=== PATIENT | male | born 1945 | race Caucasian/White ===

== ENCOUNTER 2016-10-05 08:02 | Outpatient (CLI) | payer OTHER ==
--- NOTE | 2016-10-05 08:44 | US ---
EXAM: ULTRASOUND AORTA HISTORY: Abdominal aortic aneurysm, follow-up FINDINGS: Ultrasound aorta. Real time johnston-scale, color Doppler imaging and spectral analysis perf ormed. The AP and transverse measurements respectively, in centimeters are as follows: Proximal: 1.5 x 2.0 Mid: 1.9 x 1.8 Distal: 1.7 x 1.7 Right iliac: 0.9 x 0.8 Left iliac: 1.0 x 0.9 IMPRESSION: No sonographic evidence of aneurysmal caliber of the aorta.
== END 2016-10-05 08:03 | disposition home or self-care (01) ==
LOC: RAD 08:02
PROVIDERS: ATTEND Emergency Medicine
DX: I71.4 Abdominal aortic aneurysm, without rupture (principal)
CPT/HCPCS: 76775

== ENCOUNTER 2017-08-25 09:12 | Inpatient (IN) ==
[2017-08-25] MEDS ORDERED: DUONEB NEB STA (09:23)
[2017-08-25] MEDS ORDERED: SOLU-MEDROL 125 MG IVP STA (09:23)
--- NOTE | 2017-08-25 09:27 | ED.PDOC ---
General ED Provider: Dr. SRIDEVI CRAWFORD Chief Complaint: Respiratory Complaint Stated Complaint: Patient has been sick for two weeks one week ago he was placed on steroids and antiboitics which he completed yeterday but is not better. Has a history of COPD smoke 2ppd x 65 years. Comes in today with increased shortness of breath and cough productive of white sputum. Time Seen by Physician: 09:10 Information Source: Patient Exam Limitations: No limitations Primary Care Provider: LV ROSALES Nursing and Triage Documentation Reviewed and Agree: Yes Reviewed sepsis parameters & appropriate labs ordered?: Yes System Inflammatory Response Syndrome: Resp >20/Minute Sepsis Protocol: For patient's 13 years and over: Temp is 96.8 and below OR 101 and greater Pulse >90 BPM Resp >20/minute Acutely Altered Mental Status Are patient's symptoms suggestive of a new infection, such as: -Pneumonia -Skin, Soft Tissue -Endocarditis -UTI -Bone, Joint Infection -Implantable Device -Acute Abdominal Infection -Wound Infection -Meningitis -Blood Stream Catheter Infection -Unknown System Inflammatory Response Syndrome: Not Applicable Respiratory Complaint Exam - Respiratory Complaint/Exam Onset/Duration: 7 days Symptoms Are: Still present Character: Reports: Productive cough Aggravating: Reports: URI, Passive smoke exposure Review of Systems - Review Of Systems Constitutional: Reports: No symptoms Eyes: Reports: No symptoms Ears, Nose, Mouth, Throat: Reports: No symptoms Respiratory: Reports: Cough, Short of air, Wheezing Cardiac: Reports: No symptoms GI: Reports: No symptoms : Reports: No symptoms Musculoskeletal: Reports: No symptoms Skin: Reports: No symptoms Neurological: Reports: Anxiety Endocrine: Reports: No symptoms Hematologic/Lymphatic: Reports: No symptoms All Other Systems: Reviewed and Negative Past Medical History - Past Medical History Previously Healthy: Yes Endocrine: Reports: None Cardiovascular: Reports: Hypertension Respiratory: Reports: COPD Hematological: Reports: None Gastrointestinal: Reports: None Genitourinary: Reports: None Neuro/Psych: Reports: None Musculoskeletal: Reports: None Cancer: Reports: None - Surgical History General Surgical History: Reports: None - Family History Family History: Reports: None - Social History Smoking Status: Heavy tobacco smoker Physical Exam - Physical Exam Appearance: Ill-appearing, Thin Ill-appearing: Severe Eyes: MARIELOS, EOMI, Conjunctiva clear Neck: Supple Respiratory: Rhonchi, Wheezes Cardiovascular: RRR, Pulses normal, No rub, No murmur GI/: Soft, Nontender, No masses, Bowel sounds normal, No Organomegaly Musculoskeletal: Normal strength, ROM intact, No edema, No calf tenderness Skin: Warm, Dry, Normal color Neurological: Sensation intact, Motor intact, Reflexes intact, Cranial nerves intact, Alert, Oriented Psychiatric: Anxious Critical Care Note - Critical Care Note Total Time (mins): 35 Course - Course Hematology/Chemistry: 08/25/17 09:25 08/25/17 09:25 Orders, Labs, Meds: Lab Review 08/25/17 08/25/17 08/25/17 09:25 09:25 09:25 WBC 15.44 H RBC 4.68 L Hgb 14.3 Hct 42.1 MCV 90.0 MCH 30.6 MCHC 34.0 RDW Coeff of Terry 13.4 Plt Count 326 Immature Gran % (Auto) 0.4 Neut % (Auto) 73.9 Lymph % (Auto) 16.3 [place] % (Auto) 9.2 Eos % (Auto) 0.1 Baso % (Auto) 0.1 Immature Gran # (Auto) 0.1 Neut # 11.4 H Lymph # 2.5 [place] # 1.4 Eos # 0.0 Baso # 0.0 Puncture Site O2 Saturation ABG pH ABG pCO2 ABG pO2 ABG HCO3 ABG Total CO2 ABG Base Excess Mook Test FiO2 % Sodium 133 L Potassium 3.6 Chloride 97 L Carbon Dioxide 28 Anion Gap 11.6 BUN 13 Creatinine 0.73 Estimated GFR (MDRD) 105.00 BUN/Creatinine Ratio 17.80 Glucose 99 Lactic Acid Calcium 9.1 Total Bilirubin 0.5 AST 18 ALT 10 L Alkaline Phosphatase 82 Total Protein 7.3 Albumin 3.2 L Globulin 4.1 Albumin/Globulin Ratio 0.78 Procalcitonin < 0.05 Influenza A (Rapid) Influenza B (Rapid) 08/25/17 08/25/17 08/25/17 09:25 09:53 10:10 WBC RBC Hgb Hct MCV MCH MCHC RDW Coeff of Terry Plt Count Immature Gran % (Auto) Neut % (Auto) Lymph % (Auto) [place] % (Auto) Eos % (Auto) Baso % (Auto) Immature Gran # (Auto) Neut # Lymph # [place] # Eos # Baso # Puncture Site Rr O2 Saturation 92.0 L ABG pH 7.454 H ABG pCO2 39.6 ABG pO2 60.0 L ABG HCO3 27.8 H ABG Total CO2 29 H ABG Base Excess 4 H Mook Test + FiO2 % 21.0 Sodium Potassium Chloride Carbon Dioxide Anion Gap BUN Creatinine Estimated GFR (MDRD) BUN/Creatinine Ratio Glucose Lactic Acid 17.4 Calcium Total Bilirubin AST ALT Alkaline Phosphatase Total Protein Albumin Globulin Albumin/Globulin Ratio Procalcitonin Influenza A (Rapid) Positive by naat H Influenza B (Rapid) Negative by naat Orders Category Date Time Status ABG DRAW REQUEST Stat CARDIO 08/25/17 09:53 Completed NEBULIZER TREATMENT Stat CARDIO 08/25/17 09:24 Completed IV ACCESS ONCE CARE 08/25/17 09:23 Active ED APPLY O2 .ONCE EMERGENCY 08/25/17 09:23 Active ED DIRECTOR FINANCIAL SYSTEMS APPLIED .ONCE EMERGENCY 08/25/17 09:23 Active ED IV/MEDIPORT/POWERPORT .ONCE EMERGENCY 08/25/17 09:24 Active ED VITAL SIGNS Q1HR EMERGENCY 08/25/17 09:23 Active ABG Stat LAB 08/25/17 09:53 Completed BLOOD CULTURE (ED ONLY) Stat LAB 08/25/17 09:25 Received CBC W/ AUTO DIFF Stat LAB 08/25/17 09:25 Completed COMPREHENSIVE METABOLIC PANEL Stat LAB 08/25/17 09:25 Completed LACTIC ACID Stat LAB 08/25/17 09:25 Completed MOLECULAR FLU A/B Stat LAB 08/25/17 10:10 Completed PROCALCITONIN Stat LAB 08/25/17 09:25 Completed RAPID STREP SCREEN [MOLECULAR GROUP A STREP] Stat LAB 08/25/17 10:10 Completed 0.9 % Sodium Chloride [Saline Flush] MEDS 08/25/17 09:24 Active 1 syr IVF PRN PRN Ceftriaxone Sodium [Rocephin] 1 gm MEDS 08/25/17 10:46 Discontinued 0.9 % Sodium Chloride [Sodium Chloride] 50 ml IV ONCE Ipratropium/Albuterol Neb [Duoneb] MEDS 08/25/17 09:23 Discontinued 1 vial NEB ONCE STA Methylprednisolone Sod Succ/Pf [Solu-Medrol 125 mg] MEDS 08/25/17 09:23 Discontinued 125 mg IVP ONCE STA CHEST, 1V AP ONLY Stat RADS 08/25/17 09:23 Completed Medications Generic Name Dose Route Start Last Admin Trade Name Freq PRN Reason Stop Dose Admin Sodium Chloride 1 syr 08/25/17 09:24 08/25/17 10:04 Saline Flush IVF 1 syr PRN PRN Administration To flush IV Discontinued Medications Generic Name Dose Route Start Last Admin Trade Name Dhaval PRN Reason Stop Dose Admin Albuterol/Ipratropium 1 vial 08/25/17 09:23 08/25/17 09:40 Duoneb NEB 08/25/17 09:24 1 vial ONCE STA Administration Ceftriaxone Sodium 1 gm/ 50 mls @ 75 mls/hr 08/25/17 10:46 08/25/17 11:27 Sodium Chloride IV 08/25/17 11:25 75 mls/hr ONCE STA Administration Methylprednisolone Sodium Succinate 125 mg 08/25/17 09:23 08/25/17 09:58 Solu-Medrol 125 Mg IVP 08/25/17 09:24 125 mg ONCE STA Administration Vital Signs: Temp Pulse Resp BP Pulse Ox 08/25/17 09:13 99.7 F H 84 36 H 144/85 H 92 L Departure - Departure Time of Disposition: 11:40 Disposition: HOME SELF-CARE Discharge Problem: Influenza A, COPD with acute exacerbation Left lower lobe pneumonia Qualifiers: Pneumonia type: due to unspecified organism Qualified Code(s): J18.1 - Lobar pneumonia, unspecified organism Condition: Stable Pt referred to PMD for follow-up: No Allergies/Adverse Reactions: Allergies No Known Allergies Allergy (Unverified 08/25/17 09:26) Home Medications: Ambulatory Orders Albuterol Sulfate [Proair Hfa] 2 puff IH Q4H PRN 08/25/17 Fluticasone/Salmeterol [Advair 250-50 Diskus] 1 each IH BID 08/25/17 Lisinopril 10 mg PO DAILY PRN 08/25/17 Disposition Discussed With: Patient, Family
--- NOTE | 2017-08-25 09:56 | DI ---
EXAMINATION: AP portable chest radiograph. HISTORY: Cough FINDINGS: There are new opacities in the right lung base since 08/09/2015. Minimal chronic opacity in the lingula is noted. There are decreased bronchovascular markings in the upper lungs. There is stable calcifications in the right upper lobe. The aorta is atherosclerotic. The heart size is nor mal. The bones are intact. No pneumothorax or pleural effusions are detected. IMPRESSION: Atelectasis or pneumonia in the right lung base. Probable chronic pulmonary parenchymal scarring in the left lung base. Suggestion of emphysema. ASCVD.
[2017-08-25] MEDS ORDERED: ROCEPHIN 1 GM in SODIUM CHLORIDE 50 ML IV STA (10:46)
[2017-08-25] MEDS ORDERED: ROCEPHIN ONE (11:16)
[2017-08-25] MEDS ORDERED: DUONEB NEB ONE (11:45)
[2017-08-25] MEDS ORDERED: DUONEB NEB PRN (11:54)
[2017-08-25] MEDS ORDERED: TYLENOL PO PRN (11:54)
[2017-08-25] MEDS ORDERED: ZOFRAN 4 MG/2 ML IVP PRN (11:54)
[2017-08-25] MEDS ORDERED: SODIUM CHLORIDE 1,000 ML IV SCH (12:00)
[2017-08-25 12:38] VITALS: BMI 22.1
[2017-08-25] MEDS ORDERED: VANCOMYCIN ONE ×2 (13:03→20:26)
[2017-08-25] MEDS: NICODERM 21 MG TD SCH (13:13)
[2017-08-25] MEDS: VANCOMYCIN 500 MG in SODIUM CHLORIDE 100 ML IV SCH ×2 (13:13→20:34)
[2017-08-25] MEDS: TAMIFLU PO SCH ×2 (13:23→20:34)
[2017-08-25] MEDS: SOLU-MEDROL 125 MG IVP SCH ×2 (13:24→20:34)
[2017-08-25] MEDS: DUONEB NEB SCH ×2 (14:45→20:25)
[2017-08-26] MEDS: SOLU-MEDROL 125 MG IVP SCH ×3 (04:08→20:40)
[2017-08-26] MEDS: DUONEB NEB SCH ×4 (05:25→23:32)
[2017-08-26] MEDS: TAMIFLU PO SCH ×2 (09:06→20:51)
[2017-08-26] MEDS: ROCEPHIN 1 GM in SODIUM CHLORIDE 50 ML IV SCH (09:06)
[2017-08-26] MEDS: ZESTRIL PO SCH (09:06)
[2017-08-26] MEDS: NICODERM 21 MG TD SCH (09:07)
[2017-08-26] MEDS: LOVENOX SUBCUT SCH (09:07)
--- NOTE | 2017-08-26 09:53 | PCM.PROG ---
Attending Provider: ATTENDING PROVIDER: Dr. LV ROSALES This patient is seen with Joann Naik, Nurse Practitioner. DATE OF SERVICE: 08/26/17 SUBJECTIVE: This 71 year old WHITE/ M was hospitalized 08/25/17. The patient is sitting on the side of the bed, alert. He states he is feeling somewhat better. REVIEW OF SYSTEMS: CONSTITUTIONAL: Fatigue. No night sweats. No fever or chills. HEENT: Eyes: No visual changes. No eye pain. No eye discharge. ENT: No runny nose. No epistaxis. No sinus pain. No odynophagia. No congestion. RESPIRATORY: Cough. No hemoptysis. Shortness of breath. CARDIOVASCULAR: No angina symptoms. No CHF symptoms. No atypical chest pain for CAD. No palpitations. No orthopnea.. GASTROINTESTINAL: No abdominal pain. No nausea or vomiting. No diarrhea or constipation. No hematemesis. No hematochezia. GENITOURINARY: No urgency. No frequency. No dysuria. No hematuria. No obstructive symptoms. No discharge. No pain. No significant abnormal bleeding. MUSCULOSKELETAL: No musculoskeletal pain; no joint swelling. NEUROLOGICAL: Awake, alert, oriented to time, place and person. No headache. No neck pain. No syncope. No seizures. No dizziness. PSYCHIATRIC: Not anxious. No depression. No suicidal thoughts. No homicidal thoughts. SKIN: No rash. No lesions. No wounds. ENDOCRINE: No unexplained weight loss. No weight gain. HEMATOLOGIC/LYMPHATIC: No anemia. No purpura. No petechiae. No prolonged or excessive bleeding. No palpable lymph nodes. PHYSICAL EXAMINATION: GENERAL: The patient is awake, alert and oriented, sitting in bed in no distress. VITAL SIGNS: Temperature 97.7 F, Pulse 66, Respiratory Rate 20, BP 125/74, Pulse Ox 96% HEENT: Head normocephalic, atraumatic. Eyes: Extraocular muscles are intact. Pupils are equal, round and reactive to light and accommodation. Ears: No lesions. Nose appeared normal. Throat: No exudate or erythema. NECK: Supple. No JVD, no carotid bruit. No lymphadenopathy or thyromegaly. LUNGS: Diminished breath sounds bilaterally. Clear to auscultation. Percussion note normal. Chest symmetrical. HEART: S1, S2, no S3. No murmurs. No cyanosis or clubbing. No ascites. Pulses: Dorsalis pedis and posterior tibial pulses +1 to +2 both sides. ABDOMEN: Soft. Non-tender. Bowel sounds active. No CVA tenderness. No mass felt. EXTREMITIES: No edema. Full range of motion of all extremities, equal. NEUROLOGIC: No focal deficit. Cranial nerves II through XII are grossly intact. No headache, no double vision or headache. SKIN: Not dry. Intact. Turgor-normal. LYMPHATIC: No palpable lymph nodes/no lymphedema. MUSCULOSKELETAL: Normal joints with no swelling. Muscle tone is normal. LAB REVIEW: 08/26/17 05:35 08/26/17 05:35 08/26/17 05:35: Sodium 134 L, Potassium 4.2, Chloride 99, Carbon Dioxide 29, Anion Gap 10.2, BUN 13, Creatinine 0.68, Estimated GFR (MDRD) 114.00, BUN/ Creatinine Ratio 19.11, Glucose 147 H, Calcium 9.0 08/26/17 05:35: WBC 13.10 H, RBC 4.29 L, Hgb 13.1 L, Hct 38.4 L, MCV 89.5, MCH 30.5, MCHC 34.1, RDW Coeff of Terry 13.2, Plt Count 303, Immature Gran % (Auto) 0.7, Neut % (Auto) 84.1, Lymph % (Auto) 11.9, [place] % (Auto) 3.2, Eos % (Auto) 0.0, Baso % (Auto) 0.1, Immature Gran # (Auto) 0.1, Neut # 11.0 H, Lymph # 1.6, [place] # 0.4, Eos # 0.0, Baso # 0.0 ASSESSMENT: 1. RIGHT LOWER LOBE PNEUMONIA 2. INFLUENZA A 3. COPD 4. SMOKER PLAN: 1. Continue IV steroids and IV antibiotics Plan and coordination of the patient's care discussed in the presence of Surface Grinder Tender and nurse. CONDITION: Stable SCRIBED BY: CARISA STERLING Flight Readiness Technician scribed while in presence of service performed by Dr. Rosales/Joann Naik APRN on 08/26/17 ([id number])
[2017-08-26] MEDS: VANCOMYCIN 1 GM in SODIUM CHLORIDE 250 ML IV SCH ×2 (10:57→20:39)
[2017-08-26] MEDS: ADVAIR 250-50 DISKUS IH SCH ×3 (10:57→20:38)
--- NOTE | 2017-08-26 13:29 | PN ---
DATE OF SERVICE: 08/25/17 - ADMITTING NOTE SUBJECTIVE: 71-year-old white male was brought to the emergency room with complaint of cough , congestion, fever, chills and poor appetite. The patient has severe chronic lung disease with history of heavy smoking. The patient has been treated with Zithromax as an outpatient for his bronchitis and same type of symptoms with practically no improvement. REVIEW OF SYSTEMS: CONSTITUTIONAL: Fatigue, weakness. No night sweats. No fever or chills. HEENT: Eyes: No visual changes. No eye pain. No eye discharge. ENT: No runny nose. No epistaxis. No sinus pain. No sore throat. No odynophagia. No congestion. RESPIRATORY: Cough and congestion. Yellowish sputum production. No hemoptysis with shortness of breath. CARDIOVASCULAR: Shortness of breath, pleuritic type of pain; sharp, shooting, right-sided with cough. No symptoms of CHF or coronary insufficiency. No angina symptoms. No CHF symptoms. No atypical chest pain for CAD. No palpitations. No orthopnea. GASTROINTESTINAL: Appetite is not good. No abdominal pain. No nausea or vomiting. No diarrhea or constipation. No hematemesis. No hematochezia. GENITOURINARY: No urgency. No frequency. No dysuria. No hematuria. No obstructive symptoms. No discharge. No pain. No significant abnormal bleeding. MUSCULOSKELETAL: Generalized aches and pains. NEUROLOGICAL: No headache. No neck pain. No syncope. No seizures. No dizziness. PSYCHIATRIC: Not anxious. No depression. No suicidal thoughts. No homicidal thoughts. SKIN: No rash. No lesions. No wounds. ENDOCRINE: No unexplained weight loss. No weight gain. HEMATOLOGIC/LYMPHATIC: No anemia. No purpura. No petechiae. No prolonged or excessive bleeding. No palpable lymph nodes. PHYSICAL EXAMINATION: GENERAL: The patient is oriented to time, place and person. VITAL SIGNS: Temperature 98.2, pulse 80, respiratory rate 15, BP 138/72. HEENT: Head normocephalic, atraumatic. Eyes: Extraocular muscles are intact. Pupils are equal, round and reactive to light and accommodation. Ears: No lesions. Nose appeared normal. Throat: No exudate or erythema. NECK: Supple. No JVD, no carotid bruit. No lymphadenopathy or thyromegaly. LUNGS: Decreased breath sounds with mild wheeze. Percussion note normal. Chest symmetrical. HEART: S1, S2, no S3. No murmurs. No cyanosis or clubbing. No ascites. Pulses: Dorsalis pedis and posterior tibial pulses +1 bilaterally. ABDOMEN: Soft. Nontender. Bowel sounds active. No CVA tenderness. No mass felt. EXTREMITIES: No pedal edema. Full range of motion of all extremities, equal. NEUROLOGIC: No focal deficit. Cranial nerves II through XII are grossly intact. No headache, no double vision or headache. SKIN: Not dry. Intact. Turgor - not good. LYMPHATIC: No palpable lymph nodes/no lymphedema. MUSCULOSKELETAL: Normal joints with no swelling. Muscle tone is normal. RADIOLOGY/LABS: Chest x-ray bilateral lobe infiltrate. ABGs borderline hypoxemia but oxygen saturation more than 90% on room air. WBC count elevated with shift to the left. ASSESSMENT: 1. ACUTE PNEUMONITIS WITH BRONCHITIS 2. INFLUENZA POSITIVE 3. DEHYDRATION 4. SEVERE CHRONIC LUNG DISEASE WITH HISTORY OF SMOKING 5. HYPERTENSION PLAN: 1. IV fluids. 2. IV antibiotics, Rocephin. 3. Vancomycin will be added because of Influenza with pneumonia 500 q.12 for two days. The patient was already on Zithromax, should stay around for five more days. 4. Steroids IV q.8hr, Methylprednisone. 5. Nebs treatment with Duonebs q.i.d. 6. Daily CBC and CMP. 7. Watch for fluid overload. 8. Telemetry. 9. Oximetry. 10. Counseling for smoking done. CONDITION: Stable TIME SPENT: More than 30 minutes. Plan and coordination of the patient's care discussed in the presence of nurse. JOSE JUAN
[2017-08-27] MEDS: DUONEB NEB SCH ×2 (04:10→10:12)
[2017-08-27] MEDS: SOLU-MEDROL 125 MG IVP SCH (05:24)
[2017-08-27 05:26] VITALS: BP 129/74; TEMP 97.3
--- NOTE | 2017-08-27 09:24 | CM.DICTOOL ---
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, CT THORAX 08/08/18 STRESS/SESTAMIBI 09/14/15 LEFT VENTRICULAR MYOCARDIAL PERFUSION IS WNL LVEF 52% LEFT VENTRICULAR WALL MOTION WNL DOBUTAMINE STRESS ECHO, 09/14/15 NO EVIDENCE OF ISCHEMIA BY ST-T WAVE NO CHEST PAIN OR CHEST DISCOMFORT NORMAL LEFT VENTRICULAR CONTRACTILITY RESTING AND DURING DOBUTAMINE INFUSION HEAVY SMOKER LAST VITALS Temp Pulse Resp BP Pulse Ox 97.3 F L 76 20 129/74 93 L 08/27/17 05:26 08/27/17 05:26 08/27/17 05:26 08/27/17 05:26 08/27/17 05:26 ACTIVE HOME MEDICATIONS Albuterol Sulfate (Proair Hfa) 2 puffs IH Q4H PRN PRN Reason: Wheezing Lisinopril (Zestril) 10 mg PO DAILY [facility] Last Admin: 08/26/17 09:06 Dose: 10 mg Fluticasone/Salmeterol (Advair 250-50 Diskus) 1 puff IH BID [facility] Last Admin: 08/26/17 20:38 Dose: 1 puff ALLERGIES No Known Allergies Allergy (Unverified 08/25/17 09:26) NEW PRESCRIPTIONS: TAMIFLU 75 MG, TAKE ONE TABLET BY MOUTH TWICE DAILY FOR 2 MORE DAYS AFTER TODAY' S DOSES KEFLEX 500 MG, TAKE ONE CAPSULE BY MOUTH THREE TIMES DAILY FOR 7 DAYS PREDNSIONE 10 MG, TAKE TWO TABLETS (20 MG) BY MOUTH TWICE DAILY X 2 DAYS, THEN ONE TABLET (10 MG) BY MOUTH TWICE DAILY FOR 5 DAYS, THEN STOP. TAKE THIS MEDICATION WITH FOOD OXYGEN AT 2L/NASAL CANNULA FOR CONTINUOUS USE [address]# [phone] SMOKING: SMOKING CESSATION HAS BEEN DISCUSSED WITH THE PATIENT. HE IS AWARE OF THE RISKS OF CONTINUATION AND THE BENEFITS WITH COMPLETE CESSATION. HE HAS NOT VERBALIZED HIS INTENT TO STOP SMOKING AND WILL BENEFIT FROM CONTINUED ENCOURAGEMENT TO DO SO. DISEASE SPECIFIC EDUCATION: INFLUENZA AND PREVENTION OF SPREAD PNEUMONIA COPD HOME MEDICATIONS NEW MEDICATIONS EFFECTS OF REAL ESTATE JOB TITLES STEROID USE FOLLOW UP LAB REVIEW: 08/27/17 04:30 08/27/17 04:30 08/27/17 04:30: Sodium 135 L, Potassium 3.9, Chloride 99, Carbon Dioxide 29, Anion Gap 10.9, BUN 17, Creatinine 0.67, Estimated GFR (MDRD) 116.00, BUN/ Creatinine Ratio 25.37, Glucose 135 H, Calcium 9.0 08/27/17 04:30: WBC 20.14 H D, RBC 4.06 L, Hgb 12.2 L, Hct 36.4 L, MCV 89.7, MCH 30.0, MCHC 33.5, RDW Coeff of Terry 13.2, Plt Count 337, Immature Gran % (Auto ) 0.6, Neut % (Auto) 85.8, Lymph % (Auto) 9.1 L, [place] % (Auto) 4.4, Eos % (Auto ) 0.0, Baso % (Auto) 0.1, Immature Gran # (Auto) 0.1, Neut # 17.3 H, Lymph # 1.8 , [place] # 0.9, Eos # 0.0, Baso # 0.0 PLAN: DISCHARGE HOME TODAY RETURN TO SEE DR. ROSALES ON 09/06/17 AT 10:15 A.M. RESUME YOUR HOME MEDICATIONS PER LIST PROVIDED BY THE NURSING STAFF NEW PRESCRIPTIONS TAMIFLU 75 MG, TAKE ONE TABLET BY MOUTH TWICE DAILY FOR 2 MORE DAYS AFTER TODAY' S DOSES KEFLEX 500 MG, TAKE ONE CAPSULE BY MOUTH THREE TIMES DAILY FOR 7 DAYS PREDNSIONE 10 MG, TAKE TWO TABLETS (20 MG) BY MOUTH TWICE DAILY X 2 DAYS, THEN ONE TABLET (10 MG) BY MOUTH TWICE DAILY FOR 5 DAYS, THEN STOP. TAKE THIS MEDICATION WITH FOOD OXYGEN AT 2L/NASAL CANNULA FOR CONTINUAL USE ACTIVITY GET PLENTY OF REST AT HOME FOR AT LEAST ONE WEEK. GRADUALLY INCREASE YOUR ACTIVITY LEVEL ACCORDING TO YOUR TOLERATION DIET HEALTHY HEART SUMMARY THE PATIENT IS ALERT AND ORIENTED X3. HE CURRENTLY RESIDES AT HOME WITH A GRANDDAUGHTER AND HAS BEEN INDEPENDENT WITH ALL ADL'S. HE DESIRES TO RETURN HOME AT DISCHARGE. HE HAS NOT REQUIRED ANY DME, HOME HEALTH OR HOMEMAKING SERVICES. HOWEVER, AFTER THIS SPELL OF ILLNESS, HE WILL BE REQUIRED TO USE OXYGEN AT 2L/NC CONTINUOUSLY DUE TO HIS COPD. HE IS AGREEABLE TO COMPLY WITH OXYGEN USE AT HOME. WE WILL REQUEST A CONSERVER AND PORTABLE OXYGEN WELL. SKIN TURGOR IS INTACT AND WITHOUT DECUBITUS ULCERS. NUTRITIONAL AND HYDRATION STATUS IS VERY GOOD. MR. REBOLLEDO IS AFEBRILE AND PAIN FREE. HE IS AWARE AND AGREEABLE FOR TODAY'S DISCHARGE PLANS. CURRENT CODE STATUS FULL CODE HERMELINDA PÉREZ APRN LV ROSALES M.D.
--- NOTE | 2017-08-27 09:37 | PCM.PROG ---
Attending Provider: ATTENDING PROVIDER: Dr. LV ROSALES This patient is seen with Joann Naik, Nurse Practitioner. DATE OF SERVICE: 08/27/17 SUBJECTIVE: This 71 year old WHITE/ M was hospitalized 08/25/17. The patient is sitting on the side of the bed, alert. He is ready to go home. He has been up and about walking around, is afebrile and is eating well. REVIEW OF SYSTEMS: CONSTITUTIONAL: No night sweats. No fatigue, malaise, lethargy. No fever or chills. HEENT: Eyes: No visual changes. No eye pain. No eye discharge. ENT: No runny nose. No epistaxis. No sinus pain. No odynophagia. No congestion. RESPIRATORY: Cough. No congestion. No hemoptysis. No shortness of breath. CARDIOVASCULAR: No angina symptoms. No CHF symptoms. No atypical chest pain for CAD. No palpitations. No orthopnea.. GASTROINTESTINAL: No abdominal pain. No nausea or vomiting. No diarrhea or constipation. No hematemesis. No hematochezia. GENITOURINARY: No urgency. No frequency. No dysuria. No hematuria. No obstructive symptoms. No discharge. No pain. No significant abnormal bleeding. MUSCULOSKELETAL: No musculoskeletal pain; no joint swelling. NEUROLOGICAL: Awake, alert, oriented to time, place and person. No headache. No neck pain. No syncope. No seizures. No dizziness. PSYCHIATRIC: Not anxious. No depression. No suicidal thoughts. No homicidal thoughts. SKIN: No rash. No lesions. No wounds. ENDOCRINE: No unexplained weight loss. No weight gain. HEMATOLOGIC/LYMPHATIC: No anemia. No purpura. No petechiae. No prolonged or excessive bleeding. No palpable lymph nodes. PHYSICAL EXAMINATION: GENERAL: The patient is awake, alert and oriented, sitting in bed in no distress. VITAL SIGNS: Temperature 97.3 F, Pulse 76, Respiratory Rate 20, BP 129/74, Pulse Ox 93% HEENT: Head normocephalic, atraumatic. Eyes: Extraocular muscles are intact. Pupils are equal, round and reactive to light and accommodation. Ears: No lesions. Nose appeared normal. Throat: No exudate or erythema. NECK: Supple. No JVD, no carotid bruit. No lymphadenopathy or thyromegaly. LUNGS: Diminished breath sounds bilaterally. Clear to auscultation. Percussion note normal. Chest symmetrical. HEART: S1, S2, no S3. No murmurs. No cyanosis or clubbing. No ascites. Pulses: Dorsalis pedis and posterior tibial pulses +1 to +2 both sides. ABDOMEN: Soft. Non-tender. Bowel sounds active. No CVA tenderness. No mass felt. EXTREMITIES: No edema. Full range of motion of all extremities, equal. NEUROLOGIC: No focal deficit. Cranial nerves II through XII are grossly intact. No headache, no double vision or headache. SKIN: Not dry. Intact. Turgor-normal. LYMPHATIC: No palpable lymph nodes/no lymphedema. MUSCULOSKELETAL: Normal joints with no swelling. Muscle tone is normal. LAB REVIEW: 08/27/17 04:30 08/27/17 04:30 08/27/17 04:30: Sodium 135 L, Potassium 3.9, Chloride 99, Carbon Dioxide 29, Anion Gap 10.9, BUN 17, Creatinine 0.67, Estimated GFR (MDRD) 116.00, BUN/ Creatinine Ratio 25.37, Glucose 135 H, Calcium 9.0 08/27/17 04:30: WBC 20.14 H D, RBC 4.06 L, Hgb 12.2 L, Hct 36.4 L, MCV 89.7, MCH 30.0, MCHC 33.5, RDW Coeff of Terry 13.2, Plt Count 337, Immature Gran % (Auto ) 0.6, Neut % (Auto) 85.8, Lymph % (Auto) 9.1 L, [place] % (Auto) 4.4, Eos % (Auto ) 0.0, Baso % (Auto) 0.1, Immature Gran # (Auto) 0.1, Neut # 17.3 H, Lymph # 1.8 , [place] # 0.9, Eos # 0.0, Baso # 0.0 ASSESSMENT: 1. RIGHT LOWER LOBE PNEUMONIA 2. INFLUENZA A 3. COPD 4. SMOKER PLAN: 1. Keflex 500 mg t.i.d. times 7 days 2. Prednisone 20 mg b.i.d. for two days then 10 mg b.i.d. for five days 3. Finish five day course of Shelly-Flu 4. D/C home 5. Followup with us next week Plan and coordination of the patient's care discussed in the presence of Offset Label Rewinder and nurse. CONDITION: Stable SCRIBED BY: CARISA STERLING Racecar Driver scribed while in presence of service performed by Dr. Rosales/Joann Naik APRN on 08/27/17 ([id number])
[2017-08-27] MEDS: LOVENOX SUBCUT SCH (09:48)
[2017-08-27] MEDS: TAMIFLU PO SCH (09:48)
[2017-08-27] MEDS: ZESTRIL PO SCH (09:48)
[2017-08-27] MEDS: NICODERM 21 MG TD SCH (09:48)
[2017-08-27] MEDS: ROCEPHIN 1 GM in SODIUM CHLORIDE 50 ML IV SCH (09:48)
[2017-08-27] MEDS: ADVAIR 250-50 DISKUS IH SCH (09:49)
--- NOTE | 2017-08-29 13:32 | PN ---
DATE OF SERVICE: 08/26/17 SUBJECTIVE: This 71 year old male was hospitalized with acute bronchitis, pneumonitis and influenza. The patient's condition has improved. His hydration status has improved. He is feeling better. Appetite has improved. The patient was seen and examined with the nurse practitioner. JOSE JUAN
--- NOTE | 2017-08-29 13:36 | PN ---
DATE OF SERVICE: 08/27/17 SUBJECTIVE: The patient was hospitalized with acute bronchitis, pneumonitis with severe chronic lung disease. Counselling for smoking done. PHYSICAL EXAMINATION: LUNGS: Decreased breath sounds. HEART: S1, S2. SKIN: His turgor is a lot better. The patient will be discharged home with antibiotics and steroids. The patient was seen and examined with the nurse practitioner. CONDITION: Stable. MTDD
--- NOTE | 2017-08-29 14:12 | PN ---
BILLING 08/25/17 LEVEL 5 08/26/17 INTERMEDIATE 08/27/17 D JOSE JUAN
--- NOTE | 2017-09-13 11:52 | HP ---
DATE OF SERVICE: 08/26/17 HISTORY OF PRESENT ILLNESS: This 71-year-old white male who presented to the emergency room stating he had been sick for two weeks. He was coughing with low grade fever at home, nauseated , very weak. He has a history of COPD and smokes two packs per day. PAST MEDICAL HISTORY: COPD HYPERTENSION OSTEOARTHRITIS PAST SURGICAL HISTORY: NONE REVIEW OF SYSTEMS: CONSTITUTIONAL: Weakness. No night sweats. No malaise, lethargy. No fever or chills. HEENT: Eyes: No visual changes. No eye pain. No eye discharge. ENT: No runny nose. No epistaxis. No sinus pain. No sore throat. No odynophagia. No ear pain. No congestion. RESPIRATORY: Cough, shortness of breath and wheezing. No hemoptysis. No shortness of breath. CARDIOVASCULAR: No angina symptoms. No CHF symptoms. No atypical chest pain for CAD. No palpitations. No orthopnea. GASTROINTESTINAL: No abdominal pain. No nausea or vomiting. No diarrhea or constipation. No hematemesis. No hematochezia. GENITOURINARY: No urgency. No frequency. No dysuria. No hematuria. No obstructive symptoms. No discharge. No pain. No significant abnormal bleeding. MUSCULOSKELETAL: No musculoskeletal pain. No joint swelling. No arthritis. NEUROLOGICAL: No headache. No neck pain. No syncope. No seizures. No dizziness. PSYCHIATRIC: Not anxious. No depression. No suicidal thoughts. No homicidal thoughts. SKIN: No rash. No lesions. No wounds. ENDOCRINE: No unexplained weight loss. No weight gain. HEMATOLOGIC/LYMPHATIC: No anemia. No purpura. No petechiae. No prolonged or excessive bleeding. No palpable lymph nodes. PERSONAL/FAMILY/SOCIAL HISTORY: No pertinent family history. The patient is a two pack per day smoker. He is accompanied by his granddaughters. He lives at home by himself with his cat. He is . MEDICATIONS: (Home) Fluticasone/Salmeterol one each IH b.i.d. Lisinopril 10 mg p.o. daily p.r.n. Albuterol (ProAir Hfa) two puff IH q.4h p.r.n. ALLERGIES: NKDA PHYSICAL EXAMINATION: VITAL SIGNS: Temperature 98.2, pulse 68, BP 123/65, respiratory rate 24, 94% on 2L HEENT: Head normocephalic, atraumatic. Eyes: Extraocular muscles are intact. Pupils are equal, round and reactive to light and accommodation. Ears: No lesions. Nose appeared normal. Throat: No exudate or erythema. NECK: Supple. No JVD, no carotid bruit. No lymphadenopathy or thyromegaly. LUNGS: Diminished breath sounds bilaterally with mild expiratory wheezes otherwise is unremarkable. Percussion note normal. Chest symmetrical. HEART: S1, S2, no S3. No murmurs. No cyanosis or clubbing. No ascites. Pulses: Dorsalis pedis and posterior tibial pulses +1 to +2 both sides. ABDOMEN: Soft. Nontender. Bowel sounds active. No CVA tenderness. No mass felt. EXTREMITIES: No edema. Full range of motion of all extremities, equal. NEUROLOGIC: No focal deficit. Cranial nerves II through XII are grossly intact. No headache, no double vision or headache. SKIN: Not dry. Intact. Turgor - normal. LYMPHATIC: No palpable lymph nodes/no lymphedema. MUSCULOSKELETAL: Normal joints with no swelling. Muscle tone is normal. LAB VALUES: White count 15.44, hemoglobin 14.3, hematocrit 42.1, platelets 326. Sodium 133, potassium 3.6, BUN 13, creatinine 0.73, calcium 9.1, AST 18, ALT 10, alkaline phosphatase 82, total protein 7.3, albumin 3.2. Lactic acid 17.4. Influenza A positive. Influenza B negative. ABGs on room air: 02 sat 92, pH 7.454, pc02 39.6 , p02 60, bicarb 27.8, total c02 29, base excess 4. Chest x-ray revealed atelectasis or pneumonia in the right lung base, COPD, atherosclerotic heart disease. ASSESSMENT: 1. INFLUENZA A 2. RIGHT LOWER LOBE PNEUMONIA 3. SEVERE COPD 4. HEAVY SMOKER 5. SHORTNESS OF BREATH PLAN: 1. Admit to the floor 2. Solu-Medrol 125 mg IV q.8hr 3. Shelly-flu 75 mg p.o. b.i.d. 4. Rocephin 1 gm IV daily 5. CBC, CMP daily 6. Routine telemetry orders 7. Xopenex neb treatments q.6hr scheduled 8. IV fluids at 75 cc/hr 9. D5 1/2 NS 10. Oxygen as needed 11. Contact precautions 12. Smoking cessation 13. Education provided 14. Will follow with him closely TIME SPENT: More than 70 minutes. JOSE JUAN
--- NOTE | 2017-09-13 13:23 | DS ---
DATE OF SERVICE: 08/27/17 FINAL DIAGNOSIS: 1. RIGHT LOWER LOBE PNEUMONIA 2. INFLUENZA A 3. COPD 4. HYPERTENSION 5. CHOLELITHIASIS, CT THORAX, 08/08/18 6. TINY SLIDING HIATAL HERNIA, CT THORAX 08/08/18 7. STRESS/SESTAMIBI 09/14/15 8. LEFT VENTRICULAR MYOCARDIAL PERFURSION IS WITHIN NORMAL LIMITS 9. LVEF 52% 10. LEFT VENTRICULAR WALL MOTION WITHIN NORMAL LIMITS 11. DOBUTAMINE STRESS ECHO, 09/14/15 12. NO EVIDENCE OF ISCHEMIA BY ST-T WAVE 13. NO CHEST PAIN OR CHEST DISCOMFORT 14. NORMAL LEFT VENTRICULAR CONTRACTILITY RESTING AND DURING DOBUTAMINE INFUSION 15. HEAVY SMOKER LAST V/S: Temperature 97.3, pulse 76, respiratory rate 20, BP 129/74, pulse ox 93 DISCHARGE INSTRUCTIONS: Followup appointment: Return to see Dr. Aguila on 09/06/17 at 10:15 a.m. MEDICATIONS AT DISCHARGE: Albuterol (ProAir Hfa) two puffs IH q.4h p.r.n. Zestril 10 mg p.o. daily TIMOTHY Advair 250-50 Diskus one puff IH b.i.d. TIMOTHY NEW PRESCRIPTIONS: Tamiflu 75 mg take one tablet by mouth twice daily for two more days after today 's doses Keflex 500 mg take one capsule by mouth three times daily for 7 days Prednisone 10 mg take two tablets (20 mg) by mouth twice daily times two days then one tablet by mouth twice daily for 5 days then stop. Take this medication with food. Oxygen at 2L/nasal cannula for continuous use [phone] DIET INSTRUCTIONS: Healthy Heart ACTIVITY: Get plenty of rest at home for at least one week. Gradually increase your activity level according to your toleration. SMOKING: Smoking cessation has been discussed with the patient. He is aware of the risks of continuation and the benefits with complete cessation. He has not verbalized his intent to stop smoking and will benefit from continued encouragement to do so. 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 He is a patient of ours however he is noncompliant with lifestyle and follow up. He does not come to the office very often. He has severe COPD and smokes two packs per day. He tested positive for Influenza A. On admission, chest x-ray revealed right lower lobe atelectasis versus pneumonia. He was admitted, placed on IV fluids D5 1/2 NS at 75 cc/hr. After the first 24 hours this is decreased to 50 cc/hr. He was placed on 1 gm Rocephin IV daily, started on Xopenex neb treatments q.6hr scheduled, placed on Tamiflu 75 mg p.o. b.i.d. and Vancomycin 500 mg IV q.12hr. He had low grade fever upon admission. This resolved within 24 hours after starting Tamiflu and antibiotics. He was not in any respiratory distress although he does have diminshed breath sounds likely due to chronic lung disease. He was started on Solu-Medrol 125 mg IV q.8hr. He has responded remarkably well, given his history of chronic lung disease. He has not required any oxygen. Today's pulse ox is 93% on room air. He has been up and about walking around for the past 24 hours. He has been eating 100% of his meals. He states he feels well. He is cracking jokes, states he is ready to go home. Again he has been afebrile for the past 24 hours. We will discharge him home on Tamiflu 75 mg b.i.d. for the next 3 days just to finish out his five day course along with tapering dose of Prednisone 20 mg b.i.d. for 2 days and then 10 mg b.i.d. for [address] him on Keflex 500 mg t.i.d. for 7 days. He is instructed to followup with us in the office next week. He is to return sooner if any fever returns. Again, he is in stable condition. His labs look good. Hemoglobin 12.2, hematocrit 36.4, platelets 337. His white count is elevated at 20,000 and this is likely due to IV steroids. This initially dropped after admission. Sodium 135, potassium 3.9, BUN 17, creatinine 0.67, temperature 97.3, heart rate 76, respirations 20, BP 129/74, pulse ox 93%. Again , his initial chest x-ray showed very minimal pneumonia if any at all, likely atelectasis due to chronic lung disease. His coughing is improved. He is feeling well. He is discharged home in stable condition. TIME SPENT: More than 60 minutes. JOSE JUAN
== END 2017-08-27 11:20 | disposition home or self-care (01) | DRG 194 ==
LOC: ED 09:12 → MEDSURG B 11:13
PROVIDERS: ADMIT Internal Medicine; ATTEND Internal Medicine
DX: J18.1 Lobar pneumonia, unspecified organism (principal); J44.1 Chronic obstructive pulmonary disease with (acute) exacerbation; J10.1 Influenza due to other identified influenza virus with other respiratory manifestations; I10 Essential (primary) hypertension; K80.20 Calculus of gallbladder without cholecystitis without obstruction; K44.9 Diaphragmatic hernia without obstruction or gangrene; F17.210 Nicotine dependence, cigarettes, uncomplicated; Z91.19 Patient's noncompliance with other medical treatment and regimen; Z79.899 Other long term (current) drug therapy
CPT/HCPCS: 36415; 80048; 80053; 82803; 83605; 84145; 85025; 87040; 87502; 87651; 93005; 93010; 94640; 94761; 96365; 96375; 99284

== ENCOUNTER 2018-12-10 08:35 | Outpatient (CLI) ==
--- NOTE | 2018-12-10 09:37 | US ---
EXAM: ULTRASOUND AORTA HISTORY: Aneurysm FINDINGS: Ultrasound aorta. Real time johnston-scale ultrasound, color Doppler imaging and spectral alfred lysis performed. The AP and transverse measurements respectively, in centimeters are as follows: Proximal: 2.2 x 2.4 Mid: 1.4 x 1.5 Distal: 1.4 x 2.0 Right iliac: 0.7 x 1.0 Left iliac: 0.8 x 1.3 Distal aortic PSV (m/s): No data IMPRESSION: No sonographic evidence of aneurysmal caliber of the abdominal aorta.
--- NOTE | 2018-12-10 10:09 | CT ---
EXAM: CT chest with and without contrast HISTORY: Shortness of breath, chronic obstructive pulmonary disease COMPARISON: None TECHNIQUE: CT chest performed with and without intravenous contrast. Coronal and sagittal reformatt ed images obtained. FINDINGS: The thoracic inlet unremarkable. Heart top normal in size. Coronary calcifications. No pericardial effusion. 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 Moderat e atherosclerosis. Small hiatal hernia. Stable sub centimeter hypodensities in the liver, too small to characterize. There are gallstones. Small hypodensity left kidney, too small to characterize. No acute abnormalities of the bones. Degenerative change in the spine. No lymphadenopathy in the ch est. Debris in the trachea and right main bronchus. No airspace consolidation. No pleural effusion . No pneumothorax. Severe emphysema with scarring. Right apical scarring with calcification. Mild scarring in the right middle lobe and lingula. 5 mm nodule right lung image 50 is unchanged. Sever al stable pulmonary nodules measure up to 6 mm, for example image 14, 49, 50, 53. IMPRESSION: 1. Severe emphysema with scarring. 2. Several pulmonary nodules measure up to 6 mm, unchanged from 08/08/2016, most suggestive of a salud ign etiology. 3. 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 4. Atherosclerosis. Coronary calcifications 5. Cholelithiasis 6. Small hiatal hernia. 7. Debris in the trachea and right main bronchus.
== END 2018-12-10 08:36 | disposition home or self-care (01) ==
LOC: RAD 08:35
PROVIDERS: ATTEND Internal Medicine
DX: R06.02 Shortness of breath (principal); R53.83 Other fatigue; J44.9 Chronic obstructive pulmonary disease, unspecified; I10 Essential (primary) hypertension; Z86.79 Personal history of other diseases of the circulatory system
CPT/HCPCS: 76775

== ENCOUNTER 2018-12-23 06:46 | Outpatient (CLI) | payer OTHER ==
--- NOTE | 2018-12-24 09:43 | ECHO2D ---
Date of Exam: 12/23/18 Ordering Physician: DR. LV ROSALES Room #: OP Reason for Echo: SOB, COPD, HTN, FATIGUE M-Mode Normal Adult Results LV Dimensions Normal Adult Results AoV Opening excursions >1.6 >1.6 LVEDD-base- 3.5-5.8 4.6 Ao root dimensions 2.0-3.7 3.6 LVESD-base- 3.1-4.6 L. Atrium dimensions 1.9-3.8 3.7 Post. Wall thickness 0.8-1.1 1.2 IV septum (thickness) 0.7-1.2 1.2 Post. Wall excursion 0.72-1.3 NORMAL Septal motion NORMAL Systolic motion R. Ventricular cavity 1.5-2.0 3.5 LVEF 60% 50% Paradoxical septal wall motion NORMAL 2-D : 2-D M Mode Echocardiogram was performed using apical four chamber and left parasternal long and short axis views. Mitral, tricuspid and aortic valves appear to be normal. Contractility of the left ventricle seems to be normal, so is the cavity size. Left atrial cavity size and aortic root appear to be normal. There is no pericardial effusion. There is no thrombus noted in the left ventricular or left aortic cavity. No mitral valve prolapse noted. ENLARGED RIGHT VENTRICLE CAVITY M-MODE: MV: NORMAL AV: NORMAL TV: NORMAL PV: CHAMBER SIZE: ENLARGED RIGHT VENTRICLE CAVITY WALL MOTION: NORMAL PERICARDIUM: NORMAL INTERPRETATION: 1. BORDERLINE LEFT VENTRICULAR HYPERTROPHY 2. ENLARGED RIGHT VENTRICLE CAVITY 3. NORMAL LEFT VENTRICLE CONTRACTILITY 4. NORMAL VALVES MTDD
== END 2018-12-23 06:47 | disposition home or self-care (01) ==
LOC: CAR 06:46
PROVIDERS: ATTEND Internal Medicine
DX: R06.02 Shortness of breath (principal); R53.83 Other fatigue; J44.9 Chronic obstructive pulmonary disease, unspecified; I10 Essential (primary) hypertension

== ENCOUNTER 2022-10-14 12:05 | Inpatient (IN) ==
[2022-10-14] MEDS ORDERED: SOLU-MEDROL 125 MG IVP ONE (12:32)
[2022-10-14] MEDS ORDERED: DUONEB NEB ONE (12:32)
--- NOTE | 2022-10-14 12:38 | ED.PDOC ---
General ED Provider: Dr. KANDY SANTILLAN MD Chief Complaint: Shortness of Air Stated Complaint: mild to mod short of breath for 2 days, on home oxygen, presents w/ O2sat 78%, no chest pain, no fever, no emesis, hx copd and htn Time Seen by Provider: 10/14/22 12:18 Mode of Arrival: Wheelchair Information Source: Patient and Family Primary Care Provider: LV ROSALES MD Nursing and Triage Documentation Reviewed and Agree: Yes Does patient meet sepsis criteria?: No System Inflammatory Response Syndrome: Not Applicable Sepsis Protocol: For patient's 13 years and over: Temp is 96.8 and below OR 101 and greater Pulse >90 BPM Resp >20/minute Acutely Altered Mental Status Are patient's symptoms suggestive of a new infection, such as: -Pneumonia -Skin, Soft Tissue -Endocarditis -UTI -Bone, Joint Infection -Implantable Device -Acute Abdominal Infection -Wound Infection -Meningitis -Blood Stream Catheter Infection -Unknown Review of Systems Review Of Systems Constitutional: Denies Fever Eyes: Denies Vision change Ears, Nose, Mouth, Throat: Denies Throat pain Respiratory: Reports Cough, Short of air and Wheezing Cardiac: Denies Chest pain GI: Denies Abdominal pain or Vomiting : Denies Frequency Musculoskeletal: Denies Back pain Skin: Denies Rash Neurological: Denies Cognitive dysfunction All Other Systems: Other Physical Exam Physical Exam Appearance: Reports No pain distress Ill-appearing: None Pain Distress: None Eyes: Reports MARIELOS, EOMI and Conjunctiva clear ENT: Reports Oropharynx normal Neck: Supple Respiratory: Reports Airway patent and Wheezes Cardiovascular: Reports RRR GI/: Reports Soft and Nontender Musculoskeletal: Reports ROM intact Skin: Reports Warm and Dry Neurological: Reports Alert and Oriented Psychiatric: Reports Affect appropriate Interpretation Radiology Interpretation Radiology Interpretation By: Radiologist Exam Interpreted: CXR Xray Comments: brittanyladian osorio EKG Interpretation Time of EKG #1: 14:08 Rate: Normal Rhythm: Sinus Interpretation: no stemi Critical Care Note Critical Care Note Total Critical Care Time (mins): 0 Course Course Hematology/Chemistry: 10/14/22 12:48 10/14/22 12:48 Orders, Labs, Meds: Lab Review 10/14/22 10/14/22 10/14/22 12:30 12:48 12:48 WBC 17.30 H RBC 3.93 L Hgb 11.6 L Hct 36.8 L MCV 93.6 MCH 29.5 MCHC 31.5 L RDW Coeff of Terry 14.2 Plt Count 355 Immature Gran % (Auto) 0.5 Neut % (Auto) 79.1 H Lymph % (Auto) 8.0 L [place] % (Auto) 9.4 Eos % (Auto) 2.8 Baso % (Auto) 0.2 Neut # (Auto) 13.7 H Lymph # (Auto) 1.4 [place] # (Auto) 1.6 Eos # (Auto) 0.5 Baso # (Auto) 0.0 Immature Gran # (Auto) 0.1 Puncture Site Base Excess O2 Saturation ABG pH ABG pCO2 ABG pO2 ABG HCO3 ABG Total CO2 Mook Test Hemoglobin Oxyhemoglobin Carboxyhemoglobin Total Hemoglobin O2 Delivery Device Oxygen Liter Flow Sodium 131.6 L Potassium 3.87 Chloride 95.7 L Carbon Dioxide 31.2 H Anion Gap 8.57 BUN 14.1 Creatinine 0.89 Estimated GFR (MDRD) 83.00 BUN/Creatinine Ratio 15.84 Glucose 108.4 H Lactic Acid Calcium 9.12 Total Bilirubin 0.82 AST 20.1 ALT 10.7 Alkaline Phosphatase 110.1 Troponin I < 0.012 Total Protein 7.50 Albumin 4.24 Globulin 3.26 Albumin/Globulin Ratio 1.30 SARS CoV-2 RNA Rapid KENJI Negative 10/14/22 10/14/22 12:48 12:52 WBC RBC Hgb Hct MCV MCH MCHC RDW Coeff of Terry Plt Count Immature Gran % (Auto) Neut % (Auto) Lymph % (Auto) [place] % (Auto) Eos % (Auto) Baso % (Auto) Neut # (Auto) Lymph # (Auto) [place] # (Auto) Eos # (Auto) Baso # (Auto) Immature Gran # (Auto) Puncture Site Rrad Base Excess 7.7 H O2 Saturation 95.7 ABG pH 7.44 ABG pCO2 47.0 H ABG pO2 77.0 L ABG HCO3 31.9 H ABG Total CO2 33.3 H Mook Test Pos Hemoglobin 0.8 Oxyhemoglobin 95.5 Carboxyhemoglobin 2.2 H Total Hemoglobin 11.4 L O2 Delivery Device Cannula Oxygen Liter Flow 2.00 Sodium Potassium Chloride Carbon Dioxide Anion Gap BUN Creatinine Estimated GFR (MDRD) BUN/Creatinine Ratio Glucose Lactic Acid 1.03 Calcium Total Bilirubin AST ALT Alkaline Phosphatase Troponin I Total Protein Albumin Globulin Albumin/Globulin Ratio SARS CoV-2 RNA Rapid KENJI Orders Category Date Time Status ABG DRAW REQUEST Stat CARDIO 10/14/22 12:32 Ordered EKG-(ED ONLY) Stat CARDIO 10/14/22 12:32 Ordered OXYGEN [ED APPLY O2] .ONCE EMERGENCY 10/14/22 12:32 Active ABG COOX Stat LAB 10/14/22 12:52 Completed BLOOD CULTURE Stat LAB 10/14/22 13:46 Received CBC W/ AUTO DIFF Stat LAB 10/14/22 12:48 Completed CMP [COMPREHENSIVE METABOLIC PANEL] Stat LAB 10/14/22 12:48 Completed LACTIC ACID Stat LAB 10/14/22 12:48 Completed SARS COV-2 RNA RAPID KENJI Stat LAB 10/14/22 12:30 Completed TROPONIN I Stat LAB 10/14/22 12:48 Completed URINALYSIS C & S IF INDICATED Stat LAB 10/14/22 12:32 Uncollected Ipratropium/Albuterol Neb [Duoneb] MEDS 10/14/22 12:32 Discontinued 3 ml NEB ONCE ONE Levofloxacin/D5w [Levaquin 750 mg/150 ml D5w] MEDS 10/14/22 13:32 Active 750 mg in 150 ml IV ONCE Methylprednisolone Sod Succ/Pf [Solu-Medrol 125 mg] MEDS 10/14/22 12:32 Discontinued 125 mg IVP ONCE ONE CHEST, 1V AP ONLY Stat RADS 10/14/22 12:32 Taken Medications Generic Name Dose Route Start Last Admin Trade Name Freq PRN Reason Stop Dose Admin Levofloxacin/Dextrose 750 mg in 150 mls @ 100 mls/hr 10/14/22 13:32 10/14/22 13:49 Levaquin 750 Mg/150 Ml D5w IV 10/14/22 15:01 100 mls/hr ONCE ONE Administration Discontinued Medications Generic Name Dose Route Start Last Admin Trade Name Freq PRN Reason Stop Dose Admin Albuterol/Ipratropium 3 ml 10/14/22 12:32 10/14/22 13:08 Ipratropium/Albuterol Vial.Neb NEB 10/14/22 12:33 3 ml ONCE ONE Administration Methylprednisolone Sodium Succinate 125 mg 10/14/22 12:32 10/14/22 12:49 Methylprednisolone Sod Succ/Pf 125 Mg/2 Ml Vial IVP 10/14/22 12:33 125 mg ONCE ONE Administration Vital Signs: Temp Pulse Resp BP Pulse Ox 10/14/22 12:17 98.7 F 90 22 H 157/74 H 97 Discharge Plan Discharge Patient Disposition: ADMITTED INPATIENT Discharge Problem: Pneumonia Prescriptions: No Action furosemide 40 mg tablet 40 mg PO DAILY atorvastatin 20 mg Tablet 20 mg PO DAILY albuterol sulfate 1.25 mg/3 mL Solution For Nebulization 1.25 mg inhalation PRN PRN (Reason: Shortness Of Breath) potassium chloride 10 mEq tablet extended release 10 meq PO DAILY spironolactone 25 mg tablet 25 mg PO DAILY tamsulosin 0.4 mg capsule 0.4 mg PO DAILY omeprazole 20 mg Capsule,Delayed Release(Dr/Ec) 20 mg PO DAILY budesonide [Pulmicort] 0.5 mg/2 mL Suspension For Nebulization 0.5 mg inhalation DAILY montelukast 10 mg tablet 10 mg PO DAILY bupropion HCl 300 mg tablet extended release 24 hr 300 mg PO DAILY Spiriva Respimat 1.25 mcg/actuation Mist 1 inh INHALATION DAILY lisinopril 10 MG tablet 10 mg PO DAILY PRN (Reason: hypertension) fluticasone propion-salmeterol [Advair Diskus] 1 EACH blister with device 1 ea inhalation BID albuterol sulfate [ProAir HFA] 200 PUFF/8.5 GM HFA aerosol inhaler 2 puff inhalation Q4H PRN (Reason: Shortness of air) Did you review [place] FARE COLLECTOR for ALL controlled substances?: Not Applicable ED Provider: KANDY SANTILLAN Condition: Stable Physician Progress Note: []Dr Rosales asked that pt be admitted to hospitalist service
[2022-10-14 12:53] LABS: BASOPHILS % (AUTO) 0.2 % (0.0-3.0); EOSINOPHILS # (AUTO) 0.5 K/ul (0.0-0.7); EOSINOPHILS % (AUTO) 2.8 % (0.0-7.0); HEMATOCRIT 36.8 % (42.0-52.0); HEMOGLOBIN 11.6 g/dl (14.0-18.0); IMMATURE GRANULOCYTE # (AUTO) 0.1 (0.0-1.0); IMMATURE GRANULOCYTE % (AUTO) 0.5 % (0.0-5.0); LYMPHOCYTES # (AUTO) 1.4 K/uL (0.60-3.4); MEAN CORPUSCULAR HEMOGLOBIN 29.5 pg (27.0-31.0); MEAN CORPUSCULAR HGB CONC 31.5 (31.8-35.4); MEAN CORPUSCULAR VOLUME 93.6 fl (80.0-94.0); MONOCYTES # (AUTO) 1.6 K/uL (0.4-2.0); MONOCYTES % (AUTO) 9.4 (0-10); NEUTROPHILS # (AUTO) 13.7 K/ul (2.0-6.9); NEUTROPHILS % (AUTO) 79.1 % (42.2-75.2); PLATELET COUNT 355 10^3/uL (140-440); RDW COEFFICIENT OF VARIATION 14.2 % (11.6-14.8); RED BLOOD COUNT 3.93 10^6/ul (4.70-6.10)
[2022-10-14 13:04] LABS: ALANINE AMINOTRANSFERASE 10.7 U/L (0-50); ALBUMIN 4.24 g/dL (3.5-5.0); ALKALINE PHOSPHATASE 110.1 U/L (56-119); ASPARTATE AMINO TRANSFERASE 20.1 U/L (17-59); BILIRUBIN,TOTAL 0.82 mg/dL (0.2-1.3); BLOOD UREA NITROGEN 14.1 mg/dL (9-20); CALCIUM 9.12 mg/dL (8.4-10.2); CARBON DIOXIDE 31.2 mmol/L (22-30.0); CHLORIDE 95.7 mmol/L (98-107); CREATININE 0.89 mg/dL (0.60-1.10); GLUCOSE 108.4 mg/dL (74-106); POTASSIUM 3.87 mmol/L (3.5-5.1); SODIUM 131.6 mmol/L (134.5-145)
[2022-10-14 13:07] LABS: ABG O2 HGB 95.5 % (95-100); ABG PH 7.44 (7.35-7.45); BEecf 7.7 (-2.0-3.0); COHb 2.2 (0.5-1.5); HCO3 31.9 (21-28); MetHb 0.8 (0-1.5); TCO2 33.3 (19-24); sO2 95.7 % (94-98); tHb 11.4 g/dl (11.7-17.4)
[2022-10-14 13:16] LABS: TROPONIN I < 0.012 ng/ml (0.0000-0.120)
[2022-10-14] MEDS ORDERED: LEVAQUIN 750 MG/150 ML D5W 750 MG/150 ML BAG IV ONE (13:32)
[2022-10-14 13:33] LABS: SARS COV-2 RNA RAPID NAAT NEGATIVE (NEGATIVE)
--- NOTE | 2022-10-14 14:07 | DI ---
EXAM: SINGLE VIEW CHEST. HISTORY: Weakness. COMPARISON: 01/09/2022, 01/26/2020 FINDINGS: Lung volumes are adequate. Increased mixed interstitial and patchy opacities are present i n bilateral lung bases. Unchanged few nodular densities are redemonstrated in the right upper lung. There is abnormal hyperlucency and associated paucity of lung markings in the upper lungs bilaterall y. No pneumothorax or pleural effusion is identified. The cardiac silhouette and central pulmonary vasculature are normal in prominence. Bilateral glenohumeral osteoarthritis and left acromioclavicul ar joint osteoarthritis are noted. IMPRESSION: Emphysema with bibasilar pneumonia versus aspiration.
[2022-10-14] MEDS ORDERED: TYLENOL PO PRN (14:10)
[2022-10-14] MEDS ORDERED: SOLU-MEDROL 40 MG IVP PRN (14:13)
[2022-10-14] MEDS ORDERED: VENTOLIN HFA (PER PUFF-WITH SPACER) IH PRN (14:14)
[2022-10-14] MEDS ORDERED: ALBUTEROL 0.042% NEB NEB PRN (14:14)
[2022-10-14] MEDS ORDERED: ZESTRIL PO PRN (14:14)
[2022-10-14 15:04] VITALS: BMI 24.5
[2022-10-14 18:45] LABS: BILIRUBIN,URINE Negative (NEGATIVE); CLARITY,URINE Clear (CLEAR); COLOR,URINE Yellow (YELLOW); GLUCOSE, URINE (UA) Negative (NEGATIVE); KETONES,URINE 1+ (NEGATIVE); LEUKOCYTE ESTERASE ,URINE Negative (NEGATIVE); NITRITE,URINE Negative (NEGATIVE); PH,URINE 5.5 (5-9); PROTEIN,URINE Negative (NEGATIVE); URINE, BLOOD Trace-intact (NEGATIVE); UROBILINOGEN,URINE 0.2 (0.2)
[2022-10-14] MEDS: SOLU-MEDROL 40 MG IVP SCH ×2 (18:46→23:21)
[2022-10-14 18:52] LABS: SQUAMOUS EPITHELIAL CELL,UR 0-2 (0-5); URINE WBC, MICROSCOPIC 0-2 (0-2)
[2022-10-14] MEDS: SYMBICORT 160-4.5 MCG INHALER IH SCH (20:41)
[2022-10-15] MEDS: SODIUM CHLORIDE 1,000 ML IV SCH ×2 (03:05)
[2022-10-15] MEDS: DUONEB NEB SCH ×5 (05:10→20:50)
[2022-10-15 05:40] LABS: BASOPHILS % (AUTO) 0.2 % (0.0-3.0); HEMATOCRIT 32.8 % (42.0-52.0); HEMOGLOBIN 10.5 g/dl (14.0-18.0); IMMATURE GRANULOCYTE % (AUTO) 0.5 % (0.0-5.0); LYMPHOCYTES % (AUTO) 18.3 (10.0-50.0); MEAN CORPUSCULAR HEMOGLOBIN 29.6 pg (27.0-31.0); MEAN CORPUSCULAR VOLUME 92.4 fl (80.0-94.0); MONOCYTES # (AUTO) 0.3 K/uL (0.4-2.0); MONOCYTES % (AUTO) 6.1 (0-10); NEUTROPHILS # (AUTO) 4.2 K/ul (2.0-6.9); NEUTROPHILS % (AUTO) 74.9 % (42.2-75.2); PLATELET COUNT 332 10^3/uL (140-440); RED BLOOD COUNT 3.55 10^6/ul (4.70-6.10); WHITE BLOOD COUNT 5.57 K/ul (4.2-10.2)
[2022-10-15 05:51] LABS: ALANINE AMINOTRANSFERASE 9.6 U/L (0-50); ALBUMIN 3.56 g/dL (3.5-5.0); ASPARTATE AMINO TRANSFERASE 32.9 U/L (17-59); BILIRUBIN,TOTAL 0.46 mg/dL (0.2-1.3); BLOOD UREA NITROGEN 14.3 mg/dL (9-20); CALCIUM 8.72 mg/dL (8.4-10.2); CHLORIDE 100.2 mmol/L (98-107); CREATININE 0.73 mg/dL (0.60-1.10); GLUCOSE 137.4 mg/dL (74-106); POTASSIUM 4.14 mmol/L (3.5-5.1); SODIUM 134.1 mmol/L (134.5-145); TOTAL PROTEIN 6.71 g/dL (6.3-8.2)
[2022-10-15] MEDS: SOLU-MEDROL 40 MG IVP SCH (06:13)
[2022-10-15] MEDS ORDERED: SOLU-MEDROL 40 MG IVP SCH (09:00)
[2022-10-15] MEDS ORDERED: PRILOSEC PO SCH (09:00)
[2022-10-15] MEDS ORDERED: MICRO-K CAP PO SCH (09:00)
[2022-10-15] MEDS ORDERED: LASIX TAB PO SCH (09:00)
[2022-10-15] MEDS ORDERED: NON-FORMULARY MEDICATION (Tiotropium Bromide [Spiriva Respimat] 1.25 mcg/actuation Mist) IH SCH (09:00)
[2022-10-15] MEDS: SOLU-MEDROL 125 MG IVP SCH ×2 (09:13→21:04)
[2022-10-15] MEDS: LEVAQUIN 750 MG/150 ML D5W 750 MG/150 ML BAG IV SCH (09:28)
[2022-10-15] MEDS: SINGULAIR PO SCH (09:29)
[2022-10-15] MEDS: WELLBUTRIN XL PO SCH (09:29)
[2022-10-15] MEDS: FLOMAX PO SCH (09:29)
[2022-10-15] MEDS: ALDACTONE PO SCH (09:29)
[2022-10-15] MEDS: SYMBICORT 160-4.5 MCG INHALER IH SCH ×2 (09:30→21:05)
[2022-10-15] MEDS: LIPITOR PO SCH (09:30)
--- NOTE | 2022-10-15 09:35 | CT ---
EXAM: CT CHEST WITH AND WITHOUT CONTRAST HISTORY: Cough and shortness of breath COMPARISON: CT chest 01/26/2020, 12/10/2018 and priors TECHNIQUE: Serial axial images of the chest were obtained before and after IV contrast was administe red. These were obtained from the lung apices to the upper abdomen. FINDINGS: The thyroid is normal. Visualized vessels demonstrate mild to moderate calcific atheroscl erotic disease. There is no dissection, aneurysm or stenosis. The heart is normal in size without p ericardial effusion. There is no mediastinal, hilar or axillary pathologically enlarged lymph nodes. There is a small hiatal hernia. There is no pneumothorax or pleural effusion. Right upper lobe calcified granulomas are present. Th ere is moderate to severe emphysema. There is a 0.2 cm pulmonary nodule which is stable right middle lobe on image 43. There is a stable 0.5 cm pulmonary nodule right lower lobe on image 45. There is no new pulmonary nodule. Limited views of the soft tissues in the upper abdomen are unchanged. There is degenerative disease of the spine with compression fracture at T12 and superior endplate compression deformity/fracture a t T11, new when compared to 2027. IMPRESSION: 1. No acute cardiopulmonary process or consolidation with stable pulmonary nodules and emphysema. 2. Degenerative disease with age indeterminate compression fractures at T11 and T12 which are new wh en compared to 2019. If further evaluation is clinically indicated, MRI may be obtained. 3. Small hiatal hernia. 4. Sequela of old granulomatous disease. All CT scans are performed using dose optimization techniques as appropriate to the performed exam an d include at least one of the following: Automated exposure control, adjustment of the mA and/or kV according t o size, and the use of iterative reconstruction technique.
[2022-10-15] MEDS: SPIRIVA IH SCH (09:45)
--- NOTE | 2022-10-15 11:07 | PCM.PROG ---
Attending Provider: ATTENDING PROVIDER: Dr. SRIDEVI CRAWFORD This patient is seen with Joann Naik, Nurse Practitioner. DATE OF SERVICE: 10/15/22 SUBJECTIVE: This 76 year old /WHITE M was hospitalized 10/14/22. States he is feeling somewhat better this morning. Still short of breath. Blood pressure has been low 109/60. WBC has improved down to 5,000 today. REVIEW OF SYSTEMS: CONSTITUTIONAL: No night sweats. No fatigue, malaise, lethargy. No fever or chills. HEENT: Eyes: No visual changes. No eye pain. No eye discharge. ENT: No runny nose. No epistaxis. No sinus pain. No odynophagia. No congestion. RESPIRATORY: Cough, no congestion. No hemoptysis. Shortness of breath. Wheezing. CARDIOVASCULAR: No angina symptoms. No CHF symptoms. No atypical chest pain for CAD. No palpitations. No orthopnea.. GASTROINTESTINAL: No abdominal pain. No nausea or vomiting. No diarrhea or constipation. No hematemesis. No hematochezia. GENITOURINARY: No urgency. No frequency. No dysuria. No hematuria. No obstructive symptoms. No discharge. No pain. No significant abnormal bleeding. MUSCULOSKELETAL: No musculoskeletal pain; no joint swelling. NEUROLOGICAL: Awake, alert, oriented to time, place and person. No headache. No neck pain. No syncope. No seizures. No dizziness. PSYCHIATRIC: Not anxious. No depression. No suicidal thoughts. No homicidal thoughts. SKIN: No rash. No lesions. No wounds. ENDOCRINE: No unexplained weight loss. No weight gain. HEMATOLOGIC/LYMPHATIC: No anemia. No purpura. No petechiae. No prolonged or excessive bleeding. No palpable lymph nodes. PHYSICAL EXAMINATION: GENERAL: The patient is awake, alert and oriented, lying in bed in no distress. VITAL SIGNS: Temperature 97 F, Pulse 81, Respiratory Rate 18, BP 109/60, Pulse Ox 96% HEENT: Head normocephalic, atraumatic. Eyes: Extraocular muscles are intact. Pupils are equal, round and reactive to light and accommodation. Ears: No lesions. Nose appeared normal. Throat: No exudate or erythema. NECK: Supple. No JVD, no carotid bruit. No lymphadenopathy or thyromegaly. LUNGS: Severely diminished breath sounds. Clear to auscultation. Percussion note normal. Chest symmetrical. HEART: S1, S2, no S3. No murmurs. No cyanosis or clubbing. No ascites. Pu lses: Dorsalis pedis and posterior tibial pulses +1 to +2 both sides. ABDOMEN: Soft. Non-tender. Bowel sounds active. No CVA tenderness. No mass felt. EXTREMITIES: No edema. Full range of motion of all extremities, equal. NEUROLOGIC: No focal deficit. Cranial nerves II through XII are grossly intact. No headache. No double vision. SKIN: Not dry. Intact. Turgor-normal. LYMPHATIC: No palpable lymph nodes/no lymphedema. MUSCULOSKELETAL: Normal joints with no swelling. Muscle tone is normal. LAB REVIEW: 10/15/22 05:30 10/15/22 05:30 10/15/22 05:30: Sodium 134.1 L, Potassium 4.14, Chloride 100.2, Carbon Dioxide 30.0, Anion Gap 8.04, BUN 14.3, Creatinine 0.73, Estimated GFR (MDRD) 104.00, BUN/Creatinine Ratio 19.58, Glucose 137.4 H, Calcium 8.72, Total Bilirubin 0.46, AST 32.9, ALT 9.6, Alkaline Phosphatase 83.0 D, Total Protein 6.71, Albumin 3.56, Globulin 3.15, Albumin/Globulin Ratio 1.13 10/15/22 05:30: WBC 5.57 D, RBC 3.55 L, Hgb 10.5 L, Hct 32.8 L, MCV 92.4, MCH 29.6, MCHC 32.0, RDW Coeff of Terry 14.0, Plt Count 332, Immature Gran % (Auto) 0.5, Neut % (Auto) 74.9, Lymph % (Auto) 18.3, [place] % (Auto) 6.1, Eos % (Auto) 0.0, Baso % (Auto) 0.2, Neut # (Auto) 4.2, Lymph # (Auto) 1.0, [place] # (Auto) 0.3 L, Eos # (Auto) 0.0, Baso # (Auto) 0.0, Immature Gran # (Auto) 0.0 10/14/22 18:38: Urine Color Yellow, Urine Clarity Clear, Urine pH 5.5, Ur Specific [place] 1.020, Urine Protein Negative, Urine Glucose (UA) Negative, Urine Ketones 1+ H, Urine Blood Trace-intact H, Urine Nitrite Negative, Urine Bilirubin Negative, Urine Urobilinogen 0.2, Ur Leukocyte Esterase Negative, Urine Microscopic RBC 2-5, Urine Microscopic WBC 0-2, Ur Squamous Epith Cells 0- 2 10/14/22 12:52: Puncture Site Rrad, Base Excess 7.7 H, O2 Saturation 95.7, ABG pH 7.44, ABG pCO2 47.0 H, ABG pO2 77.0 L, ABG HCO3 31.9 H, ABG Total CO2 33.3 H, Mook Test Pos, Hemoglobin 0.8, Oxyhemoglobin 95.5, Carboxyhemoglobin 2.2 H, Total Hemoglobin 11.4 L, O2 Delivery Device Cannula, Oxygen Liter Flow 2.00 10/14/22 12:48: Lactic Acid 1.03 10/14/22 12:48: Sodium 131.6 L, Potassium 3.87, Chloride 95.7 L, Carbon Dioxide 31.2 H, Anion Gap 8.57, BUN 14.1, Creatinine 0.89, Estimated GFR (MDRD) 83.00, BUN/Creatinine Ratio 15.84, Glucose 108.4 H, Calcium 9.12, Total Bilirubin 0.82, AST 20.1, ALT 10.7, Alkaline Phosphatase 110.1, Troponin I < 0.012, Total Protein 7.50, Albumin 4.24, Globulin 3.26, Albumin/Globulin Ratio 1.30 10/14/22 12:48: WBC 17.30 H, RBC 3.93 L, Hgb 11.6 L, Hct 36.8 L, MCV 93.6, MCH 29.5, MCHC 31.5 L, RDW Coeff of Terry 14.2, Plt Count 355, Immature Gran % (Auto) 0.5, Neut % (Auto) 79.1 H, Lymph % (Auto) 8.0 L, [place] % (Auto) 9.4, Eos % (Auto) 2.8, Baso % (Auto) 0.2, Neut # (Auto) 13.7 H, Lymph # (Auto) 1.4, [place] # (Auto) 1.6, Eos # (Auto) 0.5, Baso # (Auto) 0.0, Immature Gran # (Auto) 0.1 10/14/22 12:30: SARS CoV-2 RNA Rapid KENJI Negative ASSESSMENT: Please see below. 1. Bilateral pneumonia 2. Acute on chronic respiratory failure 3. Hypotension 4. Endstage COPD PLAN: 1. CT of the chest with and without 2. Discontinue IV fluids 3. Steroids 100mg Q 12 hours Plan and coordination of the patient's care discussed in the presence of Correctional Officer Sergeant and nurse. SCRIBED BY: Vangie RIDER scribed while in presence of service performed by Joann Naik APRN on 10/15/22 ([id number])
[2022-10-15] MEDS ORDERED: MAG-OX PO ONE ×3 (17:57→21:00)
[2022-10-15] MEDS ORDERED: MAG-OX PO STA ×2 (17:59→18:00)
[2022-10-16] MEDS: DUONEB NEB SCH (05:00)
[2022-10-16 05:12] LABS: BASOPHILS % (AUTO) 0.1 % (0.0-3.0); HEMATOCRIT 31.7 % (42.0-52.0); HEMOGLOBIN 10.1 g/dl (14.0-18.0); IMMATURE GRANULOCYTE # (AUTO) 0.1 (0.0-1.0); IMMATURE GRANULOCYTE % (AUTO) 0.5 % (0.0-5.0); LYMPHOCYTES # (AUTO) 1.2 K/uL (0.60-3.4); LYMPHOCYTES % (AUTO) 6.1 (10.0-50.0); MEAN CORPUSCULAR HEMOGLOBIN 29.4 pg (27.0-31.0); MEAN CORPUSCULAR HGB CONC 31.9 (31.8-35.4); MEAN CORPUSCULAR VOLUME 92.4 fl (80.0-94.0); NEUTROPHILS # (AUTO) 16.8 K/ul (2.0-6.9); NEUTROPHILS % (AUTO) 88.3 % (42.2-75.2); PLATELET COUNT 363 10^3/uL (140-440); RDW COEFFICIENT OF VARIATION 14.3 % (11.6-14.8); RED BLOOD COUNT 3.43 10^6/ul (4.70-6.10)
[2022-10-16 05:28] LABS: ALANINE AMINOTRANSFERASE 10.7 U/L (0-50); ALBUMIN 3.53 g/dL (3.5-5.0); ALKALINE PHOSPHATASE 77.6 U/L (56-119); ASPARTATE AMINO TRANSFERASE 24.8 U/L (17-59); BILIRUBIN,TOTAL 0.42 mg/dL (0.2-1.3); CALCIUM 9.02 mg/dL (8.4-10.2); CARBON DIOXIDE 33.3 mmol/L (22-30.0); CHLORIDE 99.2 mmol/L (98-107); CREATININE 0.86 mg/dL (0.60-1.10); GLUCOSE 125.9 mg/dL (74-106); POTASSIUM 4.09 mmol/L (3.5-5.1); TOTAL PROTEIN 6.53 g/dL (6.3-8.2)
[2022-10-16] MEDS ORDERED: LASIX IVP ONE (08:13)
[2022-10-16] MEDS: WELLBUTRIN XL PO SCH (08:29)
[2022-10-16] MEDS: INDERAL PO SCH ×2 (08:29→20:15)
[2022-10-16] MEDS: LASIX TAB PO SCH (08:30)
[2022-10-16] MEDS: MAG-OX PO SCH (08:30)
[2022-10-16] MEDS: SINGULAIR PO SCH (08:31)
[2022-10-16] MEDS: PREDNISONE PO SCH ×2 (08:31→16:41)
[2022-10-16] MEDS: MICRO-K CAP PO SCH (08:31)
[2022-10-16] MEDS: FLOMAX PO SCH (08:32)
[2022-10-16] MEDS: LIPITOR PO SCH (08:32)
[2022-10-16] MEDS: PRILOSEC PO SCH (08:32)
[2022-10-16] MEDS: ALDACTONE PO SCH (08:32)
[2022-10-16] MEDS: LEVAQUIN 750 MG/150 ML D5W 750 MG/150 ML BAG IV SCH (08:33)
[2022-10-16] MEDS ORDERED: MAG-OX PO SCH (09:00)
[2022-10-16] MEDS: SYMBICORT 160-4.5 MCG INHALER IH SCH ×2 (09:17→20:19)
[2022-10-16] MEDS: SPIRIVA IH SCH (09:18)
--- NOTE | 2022-10-16 10:07 | PCM.PROG ---
Attending Provider: ATTENDING PROVIDER: Dr. LV ROSALES MD This patient is seen with Joann Naik, Nurse Practitioner. DATE OF SERVICE: 10/16/22 SUBJECTIVE: This 76 year old /WHITE M was hospitalized 10/14/22. Extreme shortness of breath with any sort of exertion at rest. Has been sating 95% on 2 liters. Extreme tremors due to combination of steroids, NEBS and ext sob with any sort of ex at rest been sating 95% on 2 liter. extreme tremors due to combine steroids, nebs and femoral tremors. ct of chest showed no acute process. REVIEW OF SYSTEMS: CONSTITUTIONAL: No night sweats. No fatigue, malaise, lethargy. No fever or chills. HEENT: Eyes: No visual changes. No eye pain. No eye discharge. ENT: No runny nose. No epistaxis. No sinus pain. No odynophagia. No congestion. RESPIRATORY: Cough, no congestion. No hemoptysis. Shortness of breath. CARDIOVASCULAR: No angina symptoms. No CHF symptoms. No atypical chest pain for CAD. No palpitations. No orthopnea.. GASTROINTESTINAL: No abdominal pain. No nausea or vomiting. No diarrhea or constipation. No hematemesis. No hematochezia. GENITOURINARY: No urgency. No frequency. No dysuria. No hematuria. No obstruc tive symptoms. No discharge. No pain. No significant abnormal bleeding. MUSCULOSKELETAL: No musculoskeletal pain; no joint swelling. Trace leg edema. NEUROLOGICAL: Awake, alert, oriented to time, place and person. No headache. No neck pain. No syncope. No seizures. No dizziness. Tremors. PSYCHIATRIC: Not anxious. No depression. No suicidal thoughts. No homicidal thoughts. SKIN: No rash. No lesions. No wounds. ENDOCRINE: No unexplained weight loss. No weight gain. HEMATOLOGIC/LYMPHATIC: No anemia. No purpura. No petechiae. No prolonged or excessive bleeding. No palpable lymph nodes. PHYSICAL EXAMINATION: GENERAL: The patient is awake, alert and oriented, lying in bed in no distress. VITAL SIGNS: Temperature 97.0 F, Pulse 100, Respiratory Rate 20, BP 114/75, Pulse Ox 95% HEENT: Head normocephalic, atraumatic. Eyes: Extraocular muscles are intact. Pupils are equal, round and reactive to light and accommodation. Ears: No lesions. Nose appeared normal. Throat: No exudate or erythema. NECK: Supple. No JVD, no carotid bruit. No lymphadenopathy or thyromegaly. LUNGS: Severely diminished breath sounds. Clear to auscultation. Percussion note normal. Chest symmetrical. HEART: S1, S2, no S3. No murmurs. No cyanosis or clubbing. No ascites. Puls es: Dorsalis pedis and posterior tibial pulses +1 to +2 both sides. ABDOMEN: Soft. Non-tender. Bowel sounds active. No CVA tenderness. No mass felt. EXTREMITIES: Trace leg edema. Full range of motion of all extremities, equal. NEUROLOGIC: No focal deficit. Cranial nerves II through XII are grossly intact. No headache. No double vision. SKIN: Not dry. Intact. Turgor-normal. LYMPHATIC: No palpable lymph nodes/no lymphedema. MUSCULOSKELETAL: Normal joints with no swelling. Muscle tone is normal. LAB REVIEW: 10/16/22 04:53 10/16/22 04:53 10/16/22 04:53: Sodium 135.0, Potassium 4.09, Chloride 99.2, Carbon Dioxide 33.3 H, Anion Gap 6.59, BUN 19.0, Creatinine 0.86, Estimated GFR (MDRD) 86.00, BUN/Creatinine Ratio 22.09, Glucose 125.9 H, Calcium 9.02, Total Bilirubin 0.42, AST 24.8, ALT 10.7, Alkaline Phosphatase 77.6, Total Protein 6.53, Albumin 3.53, Globulin 3.00, Albumin/Globulin Ratio 1.17 10/16/22 04:53: WBC 19.00 H D, RBC 3.43 L, Hgb 10.1 L, Hct 31.7 L, MCV 92.4, MCH 29.4, MCHC 31.9, RDW Coeff of Terry 14.3, Plt Count 363, Immature Gran % (Auto) 0.5, Neut % (Auto) 88.3 H, Lymph % (Auto) 6.1 L, [place] % (Auto) 5.0, Eos % (Auto) 0.0, Baso % (Auto) 0.1, Neut # (Auto) 16.8 H, Lymph # (Auto) 1.2, [place] # (Auto) 1.0, Eos # (Auto) 0.0, Baso # (Auto) 0.0, Immature Gran # (Auto) 0.1 ASSESSMENT: Please see below. 1. Acute COPD exacerbation 2. Acute on chronic respiratory failure 3. Sinus tachycardia 4. Tremors PLAN: 1. Discontinue DUO NEBS 2. Xopenex TID scheduled 3. Propranolol 20mg BID 4. Prednisone 20mg BID 5. Discontinue Solu-Medrol 6. 20mg Lasix IV times one today Plan and coordination of the patient's care discussed in the presence of Cabinetmaker Helper and nurse. SCRIBED BY: Vangie RIDER scribed while in presence of service performed by Joann Naik APRN on 10/16/22 ([id number])
--- NOTE | 2022-10-16 11:18 | RS.PTINEVL ---
Subjective - Patient information Date of Evaluation: 10/16/22 Date of Arrival on Unit: 10/14/22 Admitted From:: Home Diagnosis: pneumonia, exacerbation of COPD Usual Living Arrangement: With Others Living Arrangement Comments: lives with adult granddaughter Home Environment: House, Stairs (few), Rail Medical History: Hypertension, COPD, Arthritis Medications: see chart, pt on 2 liters O2 Subjective Information/ Patient Comments:: pt states that he rested well last night. pt states "I don't want to go home until I am ready." - Level of function Prior to this admission, the patient could do the following:: Independent Selfcare, Independent ADL's, Independent Ambulation, Drive Current Level of Function: Partially Dependent Current Equipment Used at Home: oxygen, cane, shower chair, nebulizer, walker Interventions - Objective Patient Orientation: Person, Place, Time, Situation Current Interventions: IV's, Oxygen (2 liters), Telemetry Observation: pt with edema BLE L > R. Range of Motion - ROM Right Upper Extremity AROM: WFL's Left Upper Extremity AROM: WFL's Right Lower Extremity AROM: WFL's Left Lower Extremity AROM: WFL's Muscle Strength - Muscle Strength Right Upper Extremity Strength: Mild Weakness (grossly 4/5) Left Upper Extremity Strength: Mild Weakness (grossly 4/5) Right Lower Extremity Strength: Mild Weakness (hip flex 4-/5, knee flex/ext 4/5, ankle DF/PF 4/5) Left Lower Extremity Strength: Mild Weakness (hip flex 4-/5, knee flex/ext 4/5, ankle DF/PF 4/5) Sensation - Sensation Right Upper Extremity Sensation: Intact/Normal Left Upper Extremity Sensation: Intact/Normal Right Lower Extremity Sensation: Intact/Normal Left Lower Extremity Sensation: Intact/Normal Palpation Palpation Findings: None/Normal Balance - Sitting Balance and Reactions Static Sitting Balance: Good Dynamic Sitting Balance: Fair - Standing Balance and Reactions Static Standing Balance: Poor Dynamic Standing Balance: Poor Standing Equilibrium Reactions: Delayed Left, Delayed Right Standing Protective Reactions: Delayed Left, Delayed Right Functional Mobility - Bed Mobility Rolling R/L: Independent Supine to Sit: Independent - Transfers Sit to Stand: Supervision Stand to Sit: CGA - Safety Awareness Safety Awareness: Fair EVIN INDEX SCORE: n/a Ambulation - Ambulation Assistive Device Used: Rolling Walker Orthotic/Prosthetic Device: No Distance: 100ft Assistance needed with Ambulation: CGA Gait Deviations: Wide Based gait, Forward posture, Short stride Ambulation Comments: pt requires cues for posture, and walker placement Factors Affecting Ambulation: Decreased Balance, Breathing/O2 Saturation, Weakness, Decreased Coordination, Decreased Safety, Limited Endurance Treatment time - Time with patient Length of Evaluation: 19 Total treatment time: 24 Patient Education - Education Patient Education: Activity Modification, Education of Plan of Care Teaching Recipient: Patient Teaching Methods: Discussion Comments: discussion regarding POC Assessment - Assessment Problem List:: Decreased level of function, Requires training/education, Decreased safety/Risk of falls, Weakness Rehab Potential: Good Further Therapy Indicated?: Yes Candidate for Swing Bed for Therapy Services?: Feel pt will not be a candidate for swing bed for therapy due to higher level of function. Evaluation Complexity: HISTORY: Medium, EXAM OF BODY SYSTEMS: Medium, CLINICAL PRESENTATION: Medium, CLINICAL DECISION MAKING: Medium Patient's Goal(s): be able to walk without being increasingly SOA. Short Term Goals GOAL #1: pt transfers sup to/from sit independently. Goal to be met by: 10/18/22 GOAL #2: Transfer sit to/from stand SBA to independent Goal to be met by: 10/18/22 GOAL #3: pt amb with rwx and O2 140ft with CGA no LOB Goal to be met by: 10/18/22 GOAL #4: Improve dyn stand balance fair+ Goal to be met by: 10/18/22 Spray Drier Operator Helper Goals GOAL #1: pt transfer sup to/from sit to/from stand independently. Goal to be met by: 10/20/22 GOAL #2: pt amb functional household distances with rwx and O2 SBA. Goal to be met by: 10/20/22 GOAL #3: Ascend/descend 2 steps w handrail CGA to SBA. Goal to be met by: 10/20/22 Plan Plan of Care: Therapeutic EX, Therapeutic Activity Other:: gait training Frequency of Treatment: 1-2 X day, as tolerated Duration of Treatment: 4 days Anticipated Discharge Destination: Home Treatment Diagnosis (ICD 10 Codes): impaired balance R 26.81. difficulty walking R 26.2. weakness M62.81 Has the Physician been added for Co-signature?: Yes
[2022-10-16] MEDS: XOPENEX 1.25 MG NEB SCH ×2 (13:48→19:24)
[2022-10-17] MEDS: XOPENEX 1.25 MG NEB SCH ×3 (04:30→20:05)
[2022-10-17 05:06] LABS: BASOPHILS % (AUTO) 0.1 % (0.0-3.0); EOSINOPHILS % (AUTO) 0.2 % (0.0-7.0); HEMOGLOBIN 10.2 g/dl (14.0-18.0); IMMATURE GRANULOCYTE # (AUTO) 0.1 (0.0-1.0); IMMATURE GRANULOCYTE % (AUTO) 0.4 % (0.0-5.0); LYMPHOCYTES # (AUTO) 1.7 K/uL (0.60-3.4); MEAN CORPUSCULAR HEMOGLOBIN 29.5 pg (27.0-31.0); MEAN CORPUSCULAR HGB CONC 31.9 (31.8-35.4); MEAN CORPUSCULAR VOLUME 92.5 fl (80.0-94.0); MONOCYTES # (AUTO) 1.3 K/uL (0.4-2.0); MONOCYTES % (AUTO) 7.3 (0-10); NEUTROPHILS # (AUTO) 15.2 K/ul (2.0-6.9); PLATELET COUNT 382 10^3/uL (140-440); RDW COEFFICIENT OF VARIATION 14.2 % (11.6-14.8); RED BLOOD COUNT 3.46 10^6/ul (4.70-6.10); WHITE BLOOD COUNT 18.32 K/ul (4.2-10.2)
[2022-10-17 05:17] LABS: ALANINE AMINOTRANSFERASE 11.5 U/L (0-50); ALBUMIN 3.61 g/dL (3.5-5.0); ALKALINE PHOSPHATASE 77.2 U/L (56-119); ASPARTATE AMINO TRANSFERASE 33.4 U/L (17-59); BILIRUBIN,TOTAL 0.41 mg/dL (0.2-1.3); BLOOD UREA NITROGEN 32.3 mg/dL (9-20); CALCIUM 8.92 mg/dL (8.4-10.2); CARBON DIOXIDE 35.7 mmol/L (22-30.0); CHLORIDE 97.1 mmol/L (98-107); CREATININE 0.98 mg/dL (0.60-1.10); GLUCOSE 108.8 mg/dL (74-106); POTASSIUM 4.02 mmol/L (3.5-5.1); SODIUM 133.9 mmol/L (134.5-145); TOTAL PROTEIN 6.48 g/dL (6.3-8.2)
[2022-10-17] MEDS: LASIX TAB PO SCH (05:59)
[2022-10-17] MEDS: PRILOSEC PO SCH (05:59)
[2022-10-17] MEDS: LEVAQUIN 750 MG/150 ML D5W 750 MG/150 ML BAG IV SCH (08:42)
[2022-10-17] MEDS: ALDACTONE PO SCH (08:47)
[2022-10-17] MEDS: SYMBICORT 160-4.5 MCG INHALER IH SCH ×2 (08:47→20:28)
[2022-10-17] MEDS: SPIRIVA IH SCH (08:47)
[2022-10-17] MEDS: WELLBUTRIN XL PO SCH (08:48)
[2022-10-17] MEDS: MICRO-K CAP PO SCH (08:48)
[2022-10-17] MEDS: FLOMAX PO SCH (08:48)
[2022-10-17] MEDS: LIPITOR PO SCH (08:49)
[2022-10-17] MEDS: MAG-OX PO SCH (08:49)
[2022-10-17] MEDS: PREDNISONE PO SCH ×2 (08:49→17:17)
[2022-10-17] MEDS: SINGULAIR PO SCH (08:50)
[2022-10-17] MEDS: INDERAL PO SCH ×2 (08:50→20:27)
[2022-10-17] MEDS: COLACE PO PRN ×2 (10:08→20:27)
--- NOTE | 2022-10-17 14:55 | PN ---
DATE OF SERVICE: 10/15/22 SUBJECTIVE: Patient is seen and examined with the nurse practitioner. Patient was hospitalized by the hospitalist and switched back. Patient has severe chronic lung disease and is being treated with antibiotics. During the evening the nurse sent me strips with possible tachyarrhythmias. I examined the strips and patient's strips showed artifacts. I discussed it with the nurse and showed her. REVIEW OF SYSTEMS: CONSTITUTIONAL: No night sweats. No fatigue, malaise, lethargy. No fever or chills. HEENT: Eyes: No visual changes. No eye pain. No eye discharge. ENT: No runny nose. No epistaxis. No sinus pain. No sore throat. No odynophagia. No congestion. RESPIRATORY: No cough, no congestion. No hemoptysis. No shortness of breath. CARDIOVASCULAR: No angina symptoms. No CHF symptoms. No atypical chest pain for CAD. No palpitations. No PND. No orthopnea. GASTROINTESTINAL: No abdominal pain. No nausea or vomiting. No diarrhea or constipation. No hematemesis. No hematochezia. GENITOURINARY: No urgency. No frequency. No dysuria. No hematuria. No obstructive symptoms. No discharge. No pain. No significant abnormal bleeding. MUSCULOSKELETAL: No musculoskeletal pain; no joint swelling. NEUROLOGICAL: No headache. No neck pain. No syncope. No seizures. No dizziness. PSYCHIATRIC: Not anxious. No depression. No suicidal thoughts. No homicidal thoughts. SKIN: No rash. No lesions. No wounds. ENDOCRINE: No unexplained weight loss. No weight gain. HEMATOLOGIC/LYMPHATIC: No anemia. No purpura. No petechiae. No prolonged or excessive bleeding. No palpable lymph nodes. PHYSICAL EXAMINATION: GENERAL: The patient is in no distress. HEENT: Head normocephalic, atraumatic. Eyes: Extraocular muscles are intact. Pupils are equal, round and reactive to light and accommodation. Ears: No lesions. Nose appeared normal. Throat: No exudate or erythema. NECK: Supple. No JVD, no carotid bruit. No lymphadenopathy or thyromegaly. LUNGS: Clear to auscultation. Percussion note normal. Chest symmetrical. HEART: S1, S2, no S3. No murmurs. No cyanosis or clubbing. No ascites. Pulses: Dorsalis pedis and posterior tibial pulses +1 to +2 bilaterally. ABDOMEN: Soft. Nontender. Bowel sounds active. No CVA tenderness. No mass felt. EXTREMITIES: No edema. Full range of motion of all extremities, equal. NEUROLOGIC: No focal deficit. Cranial nerves II through XII are grossly intact. No headache. No double vision. SKIN: Not dry. Intact. Turgor - normal. LYMPHATIC: No palpable lymph nodes/no lymphedema. MUSCULOSKELETAL: Normal joints with no swelling. Muscle tone is normal. TIME SPENT: More than 35 minutes. Plan and coordination of the patient's care discussed in the presence of nurse. JOSE JUAN
--- NOTE | 2022-10-17 14:57 | PN ---
DATE OF SERVICE: 10/16/22 SUBJECTIVE: Patient was seen and examined with the nurse practitioner. Patient's condition is improving. His breathing has improved. He is still shaking at times. He has been started on Propranolol and his breathing treatment has been cut down. REVIEW OF SYSTEMS: CONSTITUTIONAL: No night sweats. No fatigue, malaise, lethargy. No fever or chills. HEENT: Eyes: No visual changes. No eye pain. No eye discharge. ENT: No runny nose. No epistaxis. No sinus pain. No sore throat. No odynophagia. No congestion. RESPIRATORY: No cough, no congestion. No hemoptysis. No shortness of breath. CARDIOVASCULAR: No angina symptoms. No CHF symptoms. No atypical chest pain for CAD. No palpitations. No PND. No orthopnea. GASTROINTESTINAL: No abdominal pain. No nausea or vomiting. No diarrhea or constipation. No hematemesis. No hematochezia. GENITOURINARY: No urgency. No frequency. No dysuria. No hematuria. No obstructive symptoms. No discharge. No pain. No significant abnormal bleeding. MUSCULOSKELETAL: No musculoskeletal pain; no joint swelling. NEUROLOGICAL: No headache. No neck pain. No syncope. No seizures. No dizziness. PSYCHIATRIC: Not anxious. No depression. No suicidal thoughts. No homicidal thoughts. SKIN: No rash. No lesions. No wounds. ENDOCRINE: No unexplained weight loss. No weight gain. HEMATOLOGIC/LYMPHATIC: No anemia. No purpura. No petechiae. No prolonged or excessive bleeding. No palpable lymph nodes. PHYSICAL EXAMINATION: GENERAL: The patient is in no distress. HEENT: Head normocephalic, atraumatic. Eyes: Extraocular muscles are intact. Pupils are equal, round and reactive to light and accommodation. Ears: No lesions. Nose appeared normal. Throat: No exudate or erythema. NECK: Supple. No JVD, no carotid bruit. No lymphadenopathy or thyromegaly. LUNGS: Clear to auscultation. Percussion note normal. Chest symmetrical. HEART: S1, S2, no S3. No murmurs. No cyanosis or clubbing. No ascites. Pulses: Dorsalis pedis and posterior tibial pulses +1 to +2 bilaterally. ABDOMEN: Soft. Nontender. Bowel sounds active. No CVA tenderness. No mass felt. EXTREMITIES: No edema. Full range of motion of all extremities, equal. NEUROLOGIC: No focal deficit. Cranial nerves II through XII are grossly intact. No headache. No double vision. SKIN: Not dry. Intact. Turgor - normal. LYMPHATIC: No palpable lymph nodes/no lymphedema. MUSCULOSKELETAL: Normal joints with no swelling. Muscle tone is normal. TIME SPENT: More than 35 minutes. Plan and coordination of the patient's care discussed in the presence of nurse. JOSE JUAN
[2022-10-18] MEDS: XOPENEX 1.25 MG NEB SCH (05:07)
[2022-10-18 05:18] VITALS: BP 108/61; TEMP 97
[2022-10-18 05:18] LABS: BASOPHILS % (AUTO) 0.1 % (0.0-3.0); HEMATOCRIT 33.1 % (42.0-52.0); HEMOGLOBIN 10.5 g/dl (14.0-18.0); IMMATURE GRANULOCYTE # (AUTO) 0.1 (0.0-1.0); IMMATURE GRANULOCYTE % (AUTO) 0.5 % (0.0-5.0); LYMPHOCYTES # (AUTO) 1.3 K/uL (0.60-3.4); LYMPHOCYTES % (AUTO) 8.2 (10.0-50.0); MEAN CORPUSCULAR HEMOGLOBIN 29.6 pg (27.0-31.0); MEAN CORPUSCULAR HGB CONC 31.7 (31.8-35.4); MEAN CORPUSCULAR VOLUME 93.2 fl (80.0-94.0); MONOCYTES # (AUTO) 0.9 K/uL (0.4-2.0); MONOCYTES % (AUTO) 5.8 (0-10); NEUTROPHILS # (AUTO) 13.8 K/ul (2.0-6.9); NEUTROPHILS % (AUTO) 85.4 % (42.2-75.2); PLATELET COUNT 416 10^3/uL (140-440); RDW COEFFICIENT OF VARIATION 14.1 % (11.6-14.8); RED BLOOD COUNT 3.55 10^6/ul (4.70-6.10); WHITE BLOOD COUNT 16.16 K/ul (4.2-10.2)
[2022-10-18 05:28] LABS: ALANINE AMINOTRANSFERASE 11.2 U/L (0-50); ALBUMIN 3.62 g/dL (3.5-5.0); ASPARTATE AMINO TRANSFERASE 22.6 U/L (17-59); BILIRUBIN,TOTAL 0.46 mg/dL (0.2-1.3); BLOOD UREA NITROGEN 31.8 mg/dL (9-20); CALCIUM 8.87 mg/dL (8.4-10.2); CARBON DIOXIDE 32.4 mmol/L (22-30.0); CHLORIDE 99.9 mmol/L (98-107); CREATININE 0.97 mg/dL (0.60-1.10); GLUCOSE 101.4 mg/dL (74-106); POTASSIUM 4.35 mmol/L (3.5-5.1); TOTAL PROTEIN 6.54 g/dL (6.3-8.2)
[2022-10-18] MEDS: PRILOSEC PO SCH (05:40)
[2022-10-18] MEDS: LASIX TAB PO SCH (05:40)
[2022-10-18] MEDS ORDERED: LEVAQUIN PO SCH (06:30)
--- NOTE | 2022-10-18 09:00 | PCM.PROG ---
Attending Provider: ATTENDING PROVIDER: Dr. FLAKO LAMAS MD This patient is seen with Joann Naik, Nurse Practitioner. DATE OF SERVICE: 10/18/22 SUBJECTIVE: This 76 year old /WHITE M was hospitalized 10/14/22. The patient is resting in bed comfortably. He has been up and about walking with a walker on his own satting 100% on 2.5L. He has been eating well. After discontinuing IV steroids and switching to Prednisone p.o. and Xopenex tremors improved. Shortness of breath improved as well. REVIEW OF SYSTEMS: CONSTITUTIONAL: Weakness. No night sweats. No fatigue, malaise, lethargy. No fever or chills. HEENT: Eyes: No visual changes. No eye pain. No eye discharge. ENT: No runny nose. No epistaxis. No sinus pain. No odynophagia. No congestion. RESPIRATORY: Cough. No hemoptysis. Shortness of breath. CARDIOVASCULAR: No angina symptoms. No CHF symptoms. No atypical chest pain for CAD. No palpitations. No orthopnea.. GASTROINTESTINAL: No abdominal pain. No nausea or vomiting. No diarrhea or constipation. No hematemesis. No hematochezia. GENITOURINARY: No urgency. No frequency. No dysuria. No hematuria. No obstructive symptoms. No discharge. No pain. No significant abnormal bleeding. MUSCULOSKELETAL: No musculoskeletal pain; no joint swelling. NEUROLOGICAL: Tremors. Awake, alert, oriented to time, place and person. No headache. No neck pain. No syncope. No seizures. No dizziness. PSYCHIATRIC: Not anxious. No depression. No suicidal thoughts. No homicidal thoughts. SKIN: No rash. No lesions. No wounds. ENDOCRINE: No unexplained weight loss. No weight gain. HEMATOLOGIC/LYMPHATIC: No anemia. No purpura. No petechiae. No prolonged or excessive bleeding. No palpable lymph nodes. PHYSICAL EXAMINATION: GENERAL: The patient is awake, alert and oriented, lying/sitting in bed in no distress. VITAL SIGNS: Temperature 97.0 F, Pulse 55, Respiratory Rate 18, BP 108/61, Pulse Ox 100% HEENT: Head normocephalic, atraumatic. Eyes: Extraocular muscles are intact. Pupils are equal, round and reactive to light and accommodation. Ears: No lesions. Nose appeared normal. Throat: No exudate or erythema. NECK: Supple. No JVD, no carotid bruit. No lymphadenopathy or thyromegaly. LUNGS: Severely diminished breath sounds. Clear to auscultation. Percussion note normal. Chest symmetrical. HEART: S1, S2, no S3. No murmurs. No cyanosis or clubbing. No ascites. Pulses: Dorsalis pedis and posterior tibial pulses +1 to +2 both sides. ABDOMEN: Soft. Non-tender. Bowel sounds active. No CVA tenderness. No mass felt. EXTREMITIES: No edema. Full range of motion of all extremities, equal. NEUROLOGIC: No focal deficit. Cranial nerves II through XII are grossly intact. No headache. No double vision. SKIN: Not dry. Intact. Turgor-normal. LYMPHATIC: No palpable lymph nodes/no lymphedema. MUSCULOSKELETAL: Normal joints with no swelling. Muscle tone is normal. LAB REVIEW: 10/18/22 04:43 10/18/22 04:43 10/18/22 04:43: Sodium 134.0 L, Potassium 4.35, Chloride 99.9, Carbon Dioxide 32.4 H, Anion Gap 6.05, BUN 31.8 H, Creatinine 0.97, Estimated GFR (MDRD) 75.00, BUN/Creatinine Ratio 32.78, Glucose 101.4, Calcium 8.87, Total Bilirubin 0.46, AST 22.6, ALT 11.2, Alkaline Phosphatase 78.0, Total Protein 6.54, Albumin 3.62, Globulin 2.92, Albumin/Globulin Ratio 1.23 10/18/22 04:43: WBC 16.16 H, RBC 3.55 L, Hgb 10.5 L, Hct 33.1 L, MCV 93.2, MCH 29.6, MCHC 31.7 L, RDW Coeff of Terry 14.1, Plt Count 416, Immature Gran % (Auto) 0.5, Neut % (Auto) 85.4 H, Lymph % (Auto) 8.2 L, [place] % (Auto) 5.8, Eos % (Auto) 0.0, Baso % (Auto) 0.1, Neut # (Auto) 13.8 H, Lymph # (Auto) 1.3, [place] # (Auto) 0.9, Eos # (Auto) 0.0, Baso # (Auto) 0.0, Immature Gran # (Auto) 0.1 ASSESSMENT: Please see below. 1. Acute COPD exacerbation 2. Acute on chronic respiratory failure 3. Leg edema 4. Essential tremors PLAN: 1. Will discharge home. 2. Propranolol 20 mg b.i.d. 3. The patient will benefit from Home Health for PT/OT and nursing. 4. Fall precautions. 5. He has a nebulizer at home. Continue to use 3x a day. Also has oxygen already at home. 6. Levaquin 500 mg daily times 5 days. 7. Prednisone 20 mg b.i.d. times 3 days then daily for 4 days. Plan and coordination of the patient's care discussed in the presence of Machine Gun Mechanic and nurse. CONDITION: Stable TIME SPENT: 35 minutes SCRIBED BY: Vangie GARCIA scribed while in presence of service performed by Joann Naik APRN on 10/18/22 ([id number])
[2022-10-18] MEDS: SYMBICORT 160-4.5 MCG INHALER IH SCH (09:08)
[2022-10-18] MEDS: SPIRIVA IH SCH (09:08)
[2022-10-18] MEDS: MAG-OX PO SCH (09:09)
[2022-10-18] MEDS: ALDACTONE PO SCH (09:09)
[2022-10-18] MEDS: WELLBUTRIN XL PO SCH (09:10)
[2022-10-18] MEDS: LIPITOR PO SCH (09:10)
[2022-10-18] MEDS: SINGULAIR PO SCH (09:11)
[2022-10-18] MEDS: MICRO-K CAP PO SCH (09:11)
[2022-10-18] MEDS: FLOMAX PO SCH (09:11)
[2022-10-18] MEDS: PREDNISONE PO SCH (09:11)
[2022-10-18] MEDS: INDERAL PO SCH (09:12)
[2022-10-18] MEDS ORDERED: COLACE PO PRN (09:23)
--- NOTE | 2022-10-18 09:46 | DS ---
DATE OF SERVICE: 10/18/22 FINAL DIAGNOSIS: 1. ACUTE COPD EXACERBATION 2. ACUTE ON CHRONIC RESPIRATORY FAILURE 3. LEG EDEMA 4. ESSENTIAL TREMORS DISCHARGE INSTRUCTIONS: Discharge home today by Dr. Aguila and Joann Naik NP. Followup next week. MEDICATIONS AT DISCHARGE: Resume all other home medications as prior admission: Albuterol Atorvastatin Budesonide Bupropion Fluticasone Furosemide Lisinopril Montelukast Omeprazole Potassium Chloride Spiriva Spironolactone Tamsulosin NEW PRESCRIPTIONS: Levaquin 500 mg daily for 5 days (pneumonia) Prednisone 20 mg twice daily for 3 days then daily for 4 days (steroid) Inderal/Propranolol 20 mg twice daily (elevated heart rate, high blood pressure and tremors) DIET INSTRUCTIONS: As tolerated, thin liquids. ACTIVITY: As tolerated, rest often as needed. Utilize assistive devices with ambulation. Fall precautions. SMOKING: N/A DISEASE SPECIFIC EDUCATION: Medications Followup Activity Diet HOSPITAL COURSE: This 76-year-old /white male was hospitalized 10/14/22. He was admitted initially to the hospital for severe pneumonia and acute on chronic respiratory failure initially requiring 3 to 4L of oxygen, p02 in the 50's. We resumed care after the first day. CT of the chest showed no pneumonia. We increased steroids to Solumedrol 125 q.8hr, continued IV Levaquin. Shortness of breath steadily improved. On the third day oxygen was down to 2L, still having significant desaturation with exertion. He has essential tremors but exacerbated by both IV steroids and Duonebs. We added Propranolol 20 mg b.i.d., discontinued IV steroids to Prednisone p.o. and switched to Xopenex. Tremors have signifiantly improved. He is satting 100% on 2L and has been up walking. He is ready to go home. He would benefit from Home Health for PT/OT and nursing. Already has nebulizer machine and oxygen at home. Will go home on Levaquin 500 mg times 5 days, Prednisone 20 mg b.i.d. for 3 days, daily for 4 days. Continue Inderal. Followup next week. TIME SPENT: 70 minutes MTDD
--- NOTE | 2022-10-18 14:59 | PN ---
DATE OF SERVICE: 10/17/22 SUBJECTIVE: 76 year old white male hospitalized with pneumonia. Patient's condition has steadily improved and getting better. His appetite has improved. He is coughing much less. He is shaking less. The medication Inderal has helped him. REVIEW OF SYSTEMS: CONSTITUTIONAL: No night sweats. No fatigue, malaise, lethargy. No fever or chills. HEENT: Eyes: No visual changes. No eye pain. No eye discharge. ENT: No runny nose. No epistaxis. No sinus pain. No sore throat. No odynophagia. No congestion. RESPIRATORY: He is coughing much less. No hemoptysis. CARDIOVASCULAR: No angina symptoms. No CHF symptoms. No atypical chest pain for CAD. No palpitations. No PND. No orthopnea. GASTROINTESTINAL: No abdominal pain. No nausea or vomiting. No diarrhea or constipation. No hematemesis. No hematochezia. GENITOURINARY: No urgency. No frequency. No dysuria. No hematuria. No obstructive symptoms. No discharge. No pain. No significant abnormal bleeding. MUSCULOSKELETAL: No musculoskeletal pain; no joint swelling. NEUROLOGICAL: No headache. No neck pain. No syncope. No seizures. No dizziness. PSYCHIATRIC: Not anxious. No depression. No suicidal thoughts. No homicidal thoughts. SKIN: No rash. No lesions. No wounds. ENDOCRINE: No unexplained weight loss. No weight gain. HEMATOLOGIC/LYMPHATIC: No anemia. No purpura. No petechiae. No prolonged or excessive bleeding. No palpable lymph nodes. PHYSICAL EXAMINATION: GENERAL: The patient is in no distress. VITAL SIGNS: Temperature 97.6, pulse 60, respiratory rate 20, blood pressure 91/50, pulse ox 91% on two liters. HEENT: Head normocephalic, atraumatic. Eyes: Extraocular muscles are intact. Pupils are equal, round and reactive to light and accommodation. Ears: No lesions. Nose appeared normal. Throat: No exudate or erythema. NECK: Supple. LUNGS: Decreased breath sounds. HEART: S1, S2, no S3. ABDOMEN: Soft. EXTREMITIES: No edema. NEUROLOGIC: No focal deficit. Cranial nerves II through XII are grossly intact. No headache. No double vision. SKIN: Not dry. Intact. Turgor - normal. LYMPHATIC: No palpable lymph nodes/no lymphedema. MUSCULOSKELETAL: Normal joints with no swelling. Muscle tone is normal. LABS: Hemoglobin 10.2, hematocrit 32, WBC 18,000, normal differential, creatinine 0.9, BUN 32, potassium 4. ASSESSMENT: 1. Acute pneumonitis. Pneumonia seems to be resolving. 2. Severe chronic lung disease 3. Familial shaking or tremors, Inderal given. Patient's shaking and tremors are much less than before. Patient's tremors were more or less disabling involving his hands. Condition: Improved TIME SPENT: More than 35 minutes. Plan and coordination of the patient's care discussed in the presence of nurse. JOSE JUAN
--- NOTE | 2022-10-21 11:01 | PN ---
DATE OF SERVICE: 10/18/22 SUBJECTIVE: Patient was seen and examined with the nurse practitioner. Patient's condition is improved. His cardiovascular status is stable. The pneumonia seems to have resolved. The patient is doing to be discharged home to be follows as an out patient. REVIEW OF SYSTEMS: CONSTITUTIONAL: No night sweats. No fatigue, malaise, lethargy. No fever or chills. HEENT: Eyes: No visual changes. No eye pain. No eye discharge. ENT: No runny nose. No epistaxis. No sinus pain. No sore throat. No odynophagia. No congestion. RESPIRATORY: No cough, no congestion. No hemoptysis. No shortness of breath. CARDIOVASCULAR: No angina symptoms. No CHF symptoms. No atypical chest pain for CAD. No palpitations. No PND. No orthopnea. GASTROINTESTINAL: No abdominal pain. No nausea or vomiting. No diarrhea or constipation. No hematemesis. No hematochezia. GENITOURINARY: No urgency. No frequency. No dysuria. No hematuria. No obstructive symptoms. No discharge. No pain. No significant abnormal bleeding. MUSCULOSKELETAL: No musculoskeletal pain; no joint swelling. NEUROLOGICAL: No headache. No neck pain. No syncope. No seizures. No dizziness. PSYCHIATRIC: Not anxious. No depression. No suicidal thoughts. No homicidal thoughts. SKIN: No rash. No lesions. No wounds. ENDOCRINE: No unexplained weight loss. No weight gain. HEMATOLOGIC/LYMPHATIC: No anemia. No purpura. No petechiae. No prolonged or excessive bleeding. No palpable lymph nodes. PHYSICAL EXAMINATION: GENERAL: The patient is in no distress. HEENT: Head normocephalic, atraumatic. Eyes: Extraocular muscles are intact. Pupils are equal, round and reactive to light and accommodation. Ears: No lesions. Nose appeared normal. Throat: No exudate or erythema. NECK: Supple. No JVD, no carotid bruit. No lymphadenopathy or thyromegaly. LUNGS: Clear to auscultation. Percussion note normal. Chest symmetrical. HEART: S1, S2, no S3. No murmurs. No cyanosis or clubbing. No ascites. Pulses: Dorsalis pedis and posterior tibial pulses +1 to +2 bilaterally. ABDOMEN: Soft. Nontender. Bowel sounds active. No CVA tenderness. No mass felt. EXTREMITIES: No edema. Full range of motion of all extremities, equal. NEUROLOGIC: No focal deficit. Cranial nerves II through XII are grossly intact. No headache. No double vision. SKIN: Not dry. Intact. Turgor - normal. LYMPHATIC: No palpable lymph nodes/no lymphedema. MUSCULOSKELETAL: Normal joints with no swelling. Muscle tone is normal. TIME SPENT: More than 35 minutes. Plan and coordination of the patient's care discussed in the presence of nurse. JOSE JUAN
--- NOTE | 2022-10-21 11:02 | PN ---
10/14/22 LEVEL 5 10/15/22 THRU 10/17/22 INTERMEDIATE 10/18/22 DISCHARGE MTDD
== END 2022-10-18 10:40 | disposition home health service (06) | DRG 193 ==
LOC: ED 12:05 → MEDSURG A 14:14
PROVIDERS: ADMIT Emergency Medicine Emergency Medical Services; ATTEND Surgery
DX: Z20.822 Contact with and (suspected) exposure to COVID-19; R00.0 Tachycardia, unspecified; Z99.81 Dependence on supplemental oxygen; R26.81 Unsteadiness on feet; I95.9 Hypotension, unspecified; R53.1 Weakness; R60.0 Localized edema; J44.1 Chronic obstructive pulmonary disease with (acute) exacerbation; Z51.81 Encounter for therapeutic drug level monitoring; G25.0 Essential tremor; Z79.899 Other long term (current) drug therapy; J96.20 Acute and chronic respiratory failure, unspecified whether with hypoxia or hypercapnia; J18.9 Pneumonia, unspecified organism

== ENCOUNTER 2023-08-15 10:26 | Observation (INO) ==
--- NOTE | 2023-08-15 10:41 | ED.PDOC ---
General ED Provider: Dr. CHANDNI GUTIÉRREZ MD Chief Complaint: Abdominal Pain Stated Complaint: Patient with history of COPD, hypertension, marked abdominal ventral hernia complains of nausea, vomiting, abdominal pain associate with chest pain discomfort. For the past 2 days intermittently. Patient also complains of a productive cough denies diaphoresis, palpitations, patient has home oxygen, has chronic dyspnea. Patient states he is unable to take aspirin due to bleeding. Time Seen by Provider: 08/15/23 10:33 Mode of Arrival: Ambulance Information Source: Patient, Family and EMT Exam Limitations: Clinical condition Primary Care Provider: LV ROSALES MD Nursing and Triage Documentation Reviewed and Agree: Yes What is Opioid Naive?: *Opioid Naive implies the patient is not already taking opioids or not chronically receiving opioids on a daily basis. *PRN dosing is not "usually" associated with tolerance. *Patients are at higher risk of over-sedation and aspiration. What is Opioid Tolerant?: *Opioid Tolerance implies less than the expected response to an opioid. *Acquired tolerance is defined by the patient taking 60mg of oral morphine daily (or equianalgesic dose of another opioid) for 1 week or more. *Often associated with chronic pain. *May take more than usual dose to achieve desired pain control. Review of Systems Review Of Systems Constitutional: Reports Chills and Malaise Eyes: Reports No symptoms Ears, Nose, Mouth, Throat: Reports No symptoms Respiratory: Reports Cough and Shortness of Breath Cardiac: Reports Chest pain GI: Reports Abdomen distended and Abdominal pain : Reports No symptoms Endocrine: Reports No symptoms Hematologic/Lymphatic: Reports No symptoms All Other Systems: Reviewed and Negative [facility] Medical History History of COVID-19 07/10 took paxlovid Z86.16 - Personal history of COVID-19 (ICD-10) Pneumonia J18.9 - Pneumonia, unspecified organism (ICD-10) COPD (chronic obstructive pulmonary disease) J44.9 - Chronic obstructive pulmonary disease, unspecified (ICD-10) Pneumonia J18.9 - Pneumonia, unspecified organism (ICD-10) Influenza A J10.1 - FLU DUE TO OTH IDENT INFLUENZA VIRUS W OTH RESP MANIFEST (ICD-10) Left lower lobe pneumonia J18.9 - PNEUMONIA, UNSPECIFIED ORGANISM (ICD-10) Family History Mother No problems noted. FATHER No problems noted. Other No known health problems Social History Smoking and tobacco status: Former smoker Tobacco: How many years used: 50 How long ago did patient quit smoking: quit 3 years ago Alcohol intake: never Substance use type: does not use Household members: children Housing: house Marital status: W / Number of children: 2 service: Yes Current occupational status: retired Current gender identity: male Seatbelt use: always Working smoke detector in home: Yes Fire extinguisher in home: Yes Carbon monoxide detector in home: Yes Physical Exam Physical Exam Appearance: Reports Well-appearing Ill-appearing: Mild Pain Distress: Mild Eyes: Reports MARIELOS, EOMI and Conjunctiva clear ENT: Reports Ears normal, Nose normal and Oropharynx normal Neck: Supple Respiratory: Reports Airway patent, Breath sounds diminished and Wheezes (There are faint expiratory wheezes noted) Cardiovascular: Reports RRR, No rub and Murmur (Systolic ejection murmur 2/6) GI/: Reports Soft, Bowel sounds normal and Other (There is a marked supra umbilical and ventral hernia noted soft nontender no palpable masses noted.) Musculoskeletal: Reports Normal strength Skin: Reports Warm and Normal color Neurological: Reports Sensation intact and Motor intact Psychiatric: Reports Affect appropriate Interpretation EKG Interpretation EKG Interpretation By: ED Physician Time of EKG #1: 10:31 Rate: Normal Rhythm: Sinus Ectopy: None Downey: Left ST Segment: Other Interpretation: Normal sinus rhythm rate of [address] changes noted. Left axis dev Radiology Interpretation Radiology Interpretation By: Radiologist Radiology Results: Positive Exam Interpreted: Portable CXR Xray Comments: airspace opacities right upper lobe Physician Notification Case Discussed Physician Notified: Discussed with Dr. Rosales Time of Notification: 13:56 Comments: Discussed the laboratory data results of the CT of the chest the abdomen with recommendations for admission to the hospitalist Physician Notified: Discussed with hospitalist Bernabe Time of Notification: 14:13 Comments: Recommendations for observation Critical Care Note Critical Care Note Total Critical Care Time (mins): 0 Course Course 08/15/23 11:00 08/15/23 11:00 Orders, Labs, Meds: Lab Review 08/15/23 08/15/23 11:00 11:50 WBC 15.49 H RBC 3.99 L Hgb 11.7 L Hct 37.9 L MCV 95.0 H MCH 29.3 MCHC 30.9 L RDW Coeff of Terry 14.0 Plt Count 411 Immature Gran % (Auto) 0.4 Neut % (Auto) 73.2 Lymph % (Auto) 13.4 Centre % (Auto) 10.4 H Eos % (Auto) 2.3 Baso % (Auto) 0.3 Neut # (Auto) 11.3 H Lymph # (Auto) 2.1 Centre # (Auto) 1.6 Eos # (Auto) 0.4 Baso # (Auto) 0.1 Immature Gran # (Auto) 0.1 APTT 28.2 Sodium 136.5 Potassium 4.03 Chloride 100.2 Carbon Dioxide 28.7 Anion Gap 11.63 BUN 15.9 Creatinine 1.13 H Estimated GFR (MDRD) 63.00 BUN/Creatinine Ratio 14.07 Glucose 107.7 H Calcium 9.05 Magnesium 2.57 H Total Bilirubin 0.45 AST 20.6 ALT 14.8 Alkaline Phosphatase 83.5 Troponin I < 0.012 NT-Pro-B Natriuret Pep 131 H Total Protein 7.83 Albumin 4.26 Globulin 3.57 Albumin/Globulin Ratio 1.19 Procalcitonin < 0.05 D-Dimer 714.03 H SARS CoV-2 RNA Rapid KENJI Positive H Orders Category Date Time Status PLACE PATIENT OBSERVATION .TO [facility] (MONITORED BED ADMISSION 08/15/23 14:46 Active ) ECHOCARDIOGRAM 2D-M MODE Routine CARDIO 08/15/23 14:46 Ordered EKG-(ED ONLY) Stat CARDIO 08/15/23 10:34 Completed EKG-(ED ONLY) Stat CARDIO 08/15/23 10:42 Completed NEBULIZER TREATMENT Stat CARDIO 08/15/23 10:43 Completed OXYGEN Routine CARDIO 08/15/23 14:47 Ordered ACTIVITY .Up With Assistance CARE 08/15/23 14:46 Active INTAKE & OUTPUT Q8HR CARE 08/15/23 14:46 Active NPO REMINDER: IMAGING ONCE CARE 08/15/23 11:51 Completed NPO REMINDER: LAB TEST ONCE CARE 08/15/23 14:55 Active TELEMETRY MONITORING TELE CARE 08/15/23 14:46 Active VITAL SIGNS Q4HR CARE 08/15/23 14:47 Active CARDIAC DIET DIETARY 08/15/23 Lunch Ordered Pipeline Controller [ED MEDIA SERVICES SPECIALIST APPLIED] .ONCE EMERGENCY 08/15/23 10:42 Active Saline Lock [ED IV/MEDIPORT/POWERPORT] .ONCE EMERGENCY 08/15/23 10:45 Active BLOOD CULTURE (ED ONLY) Stat LAB 08/15/23 11:56 Received CBC W/ AUTO DIFF DAILY@0600 LAB 08/16/23 06:00 Ordered CBC W/ AUTO DIFF DAILY@0600 LAB 08/17/23 06:00 Ordered CBC W/ AUTO DIFF Stat LAB 08/15/23 11:00 Completed CMP [COMPREHENSIVE METABOLIC PANEL] Stat LAB 08/15/23 11:00 Completed COMPREHENSIVE METABOLIC PANEL DAILY@0600 LAB 08/16/23 06:00 Ordered COMPREHENSIVE METABOLIC PANEL DAILY@0600 LAB 08/17/23 06:00 Ordered COVID [SARS COV-2 RNA RAPID KENJI] Stat LAB 08/15/23 11:50 Completed D-DIMER Stat LAB 08/15/23 11:00 Completed HEMOGLOBIN A1C DAILY LAB 08/16/23 06:00 Ordered HEMOGLOBIN A1C DAILY LAB 08/17/23 06:00 Ordered LIPID PANEL Timed LAB 08/16/23 06:00 Ordered MAGNESIUM Stat LAB 08/15/23 11:00 Completed NT-PROBNP Stat LAB 08/15/23 11:00 Completed PROCALCITONIN Routine LAB 08/15/23 11:00 Completed PT WITH INR DAILY@0600 LAB 08/19/23 06:00 Ordered PT WITH INR DAILY@0600 LAB 08/16/23 06:00 Ordered PT WITH INR DAILY@0600 LAB 08/17/23 06:00 Ordered PT WITH INR DAILY@0600 LAB 08/18/23 06:00 Ordered PT WITH INR Stat LAB 08/15/23 15:05 Ordered PTT [PARTIAL THROMBOPLASTIN TIME] Stat LAB 08/15/23 11:00 Completed TROPONIN I Stat LAB 08/15/23 11:00 Completed TROPONIN I Timed LAB 08/15/23 17:00 Ordered URINALYSIS C & S IF INDICATED Stat LAB 08/15/23 15:15 Received 0.9 % Sodium Chloride [Saline Flush] Meds 08/15/23 10:45 Active 1 syr IVF PRN PRN Acetaminophen [Tylenol] Meds 08/15/23 14:46 Active 650 mg PO Q4H PRN Ipratropium/Albuterol Neb [Duoneb] Meds 08/15/23 10:42 Discontinued 3 ml NEB ONCE STA Levofloxacin/D5w [Levaquin 750 mg/150 ml D5w] Meds 08/15/23 11:52 Discontinued 750 mg in 150 ml IV ONCE Mag Hydrox/Al Hydrox/Simeth [Mylanta Susp] Meds 08/15/23 14:58 Active 30 ml PO DAILY PRN Methylprednisolone Sod Succ/Pf [Solu-Medrol 125 mg] Meds 08/15/23 10:42 Discontinued 125 mg IVP ONCE ONE Ondansetron HCl/Pf [Zofran 4 mg/2 ml] Meds 08/15/23 14:59 Active 4 mg IVP Q6H PRN Ondansetron HCl/Pf [Zofran 4 mg/2 ml] Meds 08/15/23 10:45 Discontinued 8 mg IVP ONCE STA Pantoprazole Sodium [Protonix] Meds 08/15/23 10:45 Discontinued 40 mg IVP ONCE ONE Pantoprazole Sodium [Protonix] Meds 08/16/23 09:00 Once 40 mg PO ONCE ONE Prednisone Meds 08/16/23 07:30 Active 40 mg PO DAILYWM2 Remdesivir [Veklury] 100 mg Meds 08/16/23 09:00 Active 0.9 % Sodium Chloride [Sodium Chloride 100Ml] 100 ml IV DAILY Remdesivir [Veklury] 200 mg Meds 08/15/23 14:46 Active 0.9 % Sodium Chloride [Sodium Chloride] 250 ml IV ONCE Sodium Chloride 0.9% [Sodium Chloride] 1,000 ml Meds 08/15/23 10:45 Active IV 30 mls/hr Valacyclovir HCl [Valtrex] Meds 08/15/23 15:00 Active 1,000 mg PO TID CHEST, 1V AP ONLY Stat RADS 08/15/23 10:45 Completed CTA ANGIO ABD/PELVIS Stat RADS 08/15/23 11:51 Completed CTA CHEST PE PROTOCOL Stat RADS 08/15/23 11:51 Completed Medications Generic Name Dose Route Start Last Admin Trade Name Freq PRN Reason Stop Dose Admin Acetaminophen 650 mg 08/15/23 14:46 Acetaminophen 325 Mg Tablet PO Q4H PRN Mild Pain Al Hydroxide/Mg Hydroxide 30 ml 08/15/23 14:58 Mag Hydrox/Al Hydrox/Simeth 30 Ml Cup PO DAILY PRN Heartburn Sodium Chloride 1,000 mls @ 30 mls/hr 08/15/23 10:45 Sodium Chloride IV 08/16/23 20:04 .[id number] ONE Remdesivir 200 mg/ Sodium 250 mls @ 250 mls/hr 08/15/23 14:46 Chloride IV 08/15/23 15:45 ONCE ONE Remdesivir 100 mg/ Sodium 100 mls @ 200 mls/hr 08/16/23 09:00 Chloride IV 08/19/23 09:29 DAILY TIMOTHY Ondansetron HCl 4 mg 08/15/23 14:59 Ondansetron Hcl/Pf 4 Mg/2 Ml Sdv IVP Q6H PRN Nausea / Vomiting Pantoprazole Sodium 40 mg 08/16/23 09:00 Pantoprazole Sodium 40 Mg Tablet. PO 08/16/23 09:01 ONCE ONE Prednisone 40 mg 08/16/23 07:30 Prednisone 20 Mg Tablet PO DAILYWM2 TIMOTHY Sodium Chloride 1 syr 08/15/23 10:45 0.9% Sodium Chloride 10 Ml Disp.Syrin IVF PRN PRN To flush IV Valacyclovir HCl 1,000 mg 08/15/23 15:00 Valacyclovir Hcl 500 Mg Tablet PO TID TIMOTHY Discontinued Medications Generic Name Dose Route Start Last Admin Trade Name Freq PRN Reason Stop Dose Admin Albuterol/Ipratropium 3 ml 08/15/23 10:42 08/15/23 10:59 Ipratropium/Albuterol Vial.Neb NEB 08/15/23 10:43 3 ml ONCE STA Administration Levofloxacin/Dextrose 750 mg in 150 mls @ 100 mls/hr 08/15/23 11:52 08/15/23 12:24 Levaquin 750 Mg/150 Ml D5w IV 08/15/23 13:21 100 mls/hr ONCE ONE Administration Methylprednisolone Sodium Succinate 125 mg 08/15/23 10:42 08/15/23 10:55 Methylprednisolone Sod Succ/Pf 125 Mg/2 Ml Vial IVP 08/15/23 10:43 125 mg ONCE ONE Administration Ondansetron HCl 8 mg 08/15/23 10:45 08/15/23 10:55 Ondansetron Hcl/Pf 4 Mg/2 Ml Sdv IVP 08/15/23 10:46 8 mg ONCE STA Administration Pantoprazole Sodium 40 mg 08/15/23 10:45 08/15/23 10:55 Pantoprazole Sodium 40 Mg Vial IVP 08/15/23 10:46 40 mg ONCE ONE Administration Vital Signs: Temp Pulse Resp BP Pulse Ox 08/15/23 10:28 98.8 F 84 16 156/87 H 97 DAQUAN Risk Score Age >/= 65: Yes >/= 3 CAD Risk Factors: Yes Known CAD (Stenosis >/= 50%): Yes ASA Use in Past 7 Days: No Severe Angina (>/= 2 episodes in 24 hours): Yes EKG ST Changes >/= 0.5mm: Yes Postive Cardiac Marker: No DAQUAN Total Score: 5 DAQUAN Risk Score: Risk Score Odds of by 30D 0 0.1 (0.1-0.2) 1 0.3 (0.2-0.3) 2 0.4 (0.3-0.5) 3 0.7 (0.6-0.9) 4 1.2 (1.0-1.5) 5 2.2 (1.9-2.6) 6 3.0 (2.5-3.6) 7 4.8 (3.8-6.1) Discharge Plan Discharge Patient Disposition: PLACED OBSERVATION Discharge Problem: Pneumonia due to 2019 novel coronavirus, Acute exacerbation of chronic obstructive pulmonary disease Did you review [place] LENS GENERATOR for ALL controlled substances?: Not Applicable ED Provider: CHANDNI GUTIÉRREZ Condition: Stable Physician Progress Note: History obtained from the patient and his granddaughter who states that patient has a history of COPD home oxygen dependent, history of hypertension, anemia, abdominal aortic aneurysm and a large ventral hernia. Patient complains of intermittent chest pain past several days has chronic dyspnea has abdominal pain discomfort associated with nausea and vomiting on chronic basis. Patient denies fever, chills, arthralgia. Pulse oximetry on 2 L oxygen has 97%. Portable chest x-ray is consistent with interstitial reticular airspace opacities right upper quadrant. EKG consistent with normal sinus rhythm rate of 81 left axis deviation there is nonspecific ST changes noted inferior laterally. Prolonged QT syndrome. Laboratory data D-dimer 714, BNP 131, troponin 0.012, CBC is within normal limits several white blood cell count of 15,400 BMP is normal, GFR 63 After 2 sets of blood cultures patient ministered Levaquin 750 mg IV piggyback. Patient is positive for COVID. Patient also administered DuoNeb aerosol treatment. Solu-Medrol 125 mg IV. CTA of the chest is consistent with normal CT pulmonary angiogram with no evidence of pulmonary artery embolism. There is streaky airspace opacities bilaterally. Severe eczematous changes. Interpretation by the radiologist. CT of the abdomen pelvis with IV contrast interpretation per radiologist is consistent with no aneurysmal disease there is a #72.9 calcified left renal lesion. There is punctate gallstones are seen. The pancreas spleen adrenals within normal limits. There is no bowel wall dilatation bowel wall thickening. Differential diagnosis: 1) COVID-pneumonia 2) exacerbation COPD Discussed with Dr. Duane Rosales at 1356 for admission recommendations for hospitalist service Discussed with hospitalist Bernabe at 1413 for observation []
[2023-08-15] MEDS ORDERED: DUONEB NEB STA (10:42)
[2023-08-15] MEDS ORDERED: SOLU-MEDROL 125 MG IVP ONE (10:42)
[2023-08-15] MEDS ORDERED: PROTONIX IVP ONE (10:45)
[2023-08-15] MEDS ORDERED: SODIUM CHLORIDE 1,000 ML IV ONE (10:45)
[2023-08-15] MEDS ORDERED: ZOFRAN 4 MG/2 ML IVP STA (10:45)
[2023-08-15 11:06] LABS: BASOPHILS # (AUTO) 0.1 K/uL (0-0.2); BASOPHILS % (AUTO) 0.3 % (0.0-3.0); EOSINOPHILS # (AUTO) 0.4 K/ul (0.0-0.7); EOSINOPHILS % (AUTO) 2.3 % (0.0-7.0); HEMATOCRIT 37.9 % (42.0-52.0); HEMOGLOBIN 11.7 g/dl (14.0-18.0); IMMATURE GRANULOCYTE # (AUTO) 0.1 (0.0-1.0); IMMATURE GRANULOCYTE % (AUTO) 0.4 % (0.0-5.0); LYMPHOCYTES # (AUTO) 2.1 K/uL (0.60-3.4); LYMPHOCYTES % (AUTO) 13.4 (10.0-50.0); MEAN CORPUSCULAR HEMOGLOBIN 29.3 pg (27.0-31.0); MEAN CORPUSCULAR HGB CONC 30.9 (31.8-35.4); MONOCYTES # (AUTO) 1.6 K/uL (0.4-2.0); MONOCYTES % (AUTO) 10.4 (0-10); NEUTROPHILS # (AUTO) 11.3 K/ul (2.0-6.9); NEUTROPHILS % (AUTO) 73.2 % (42.2-75.2); PLATELET COUNT 411 10^3/uL (140-440); RED BLOOD COUNT 3.99 10^6/ul (4.70-6.10); WHITE BLOOD COUNT 15.49 K/ul (4.2-10.2)
[2023-08-15 11:18] LABS: ALANINE AMINOTRANSFERASE 14.8 U/L (0-50); ALBUMIN 4.26 g/dL (3.5-5.0); ALKALINE PHOSPHATASE 83.5 U/L (56-119); ASPARTATE AMINO TRANSFERASE 20.6 U/L (17-59); BILIRUBIN,TOTAL 0.45 mg/dL (0.2-1.3); BLOOD UREA NITROGEN 15.9 mg/dL (9-20); CALCIUM 9.05 mg/dL (8.4-10.2); CARBON DIOXIDE 28.7 mmol/L (22-30.0); CHLORIDE 100.2 mmol/L (98-107); CREATININE 1.13 mg/dL (0.60-1.10); GLUCOSE 107.7 mg/dL (74-106); MAGNESIUM 2.57 mg/dL (1.6-2.3); POTASSIUM 4.03 mmol/L (3.5-5.1); SODIUM 136.5 mmol/L (134.5-145); TOTAL PROTEIN 7.83 g/dL (6.3-8.2)
--- NOTE | 2023-08-15 11:21 | DI ---
EXAM: CHEST RADIOGRAPH TECHNIQUE: Single frontal chest radiograph. HISTORY: Shortness of breath. COMPARISON: 12/09/2022. FINDINGS: Scattered interstitial and reticular airspace opacities including nodular densities in the right uppe r lobe. Granulomatous changes. The heart size is normal. There is no pleural effusion. There is no pneumothorax. IMPRESSION: Stable imaging findings including suspicious nodular densities in the right upper lobe.
[2023-08-15 11:30] LABS: TROPONIN I < 0.012 ng/ml (0.0000-0.120)
[2023-08-15] MEDS ORDERED: LEVAQUIN 750 MG/150 ML D5W 750 MG/150 ML BAG IV ONE (11:52)
[2023-08-15 12:12] LABS: SARS COV-2 RNA RAPID NAAT POSITIVE (NEGATIVE)
--- NOTE | 2023-08-15 13:22 | CT ---
EXAM: CHEST CTA WITH CONTRAST (PULMONARY ARTERY) HISTORY: Chest pain and shortness of breath. TECHNIQUE: CTA acquisition of the chest from the thoracic inlet to the upper abdomen following IV con trast administration timed to filling of the pulmonary artery. IV Contrast: 100 mL of Omnipaque 350 administered. 3D/MIP/VR images were utilized. CT Dose Reduction Techniques Employed: Yes. COMPARISON: Reviewed. FINDINGS: Pulmonary Embolism: - Diagnostic quality: Adequate. - Central (Main/Lobar/Interlobar): No embolus. - Peripheral (Segmental/Subsegmental): No embolus. - Right ventricle/Left ventricle ratio: Normal. Lines, Tubes, Devices: None. Lung Parenchyma and Airways: Central airways are patent without endobronchial lesion. Severe emphyse matous change. Calcified granuloma at the right apex. Streaky airspace opacities bilaterally No mullins spicious pulmonary nodule. Pleural Space: No pleural effusion or thickening. No pneumothorax. Thoracic Inlet, Mediastinum, and Eliana: Thyroid gland is normal. No lymphadenopathy. Heart, Vessels, and Pericardium: Scattered vascular including coronary artery atheromatous calcificat ions. The thoracic aorta is not dilated. The heart chambers are not enlarged. There is no perica rdial effusion or thickening. Bones and Soft Tissues: Degenerative disease with age indeterminate compression fractures at T11 and T12 There is no new fracture or lytic lesion. Chest wall soft tissues are unremarkable. Upper Abdomen: The visualized portions of the liver, spleen, and adrenals are normal. IMPRESSION: 1. Normal CT pulmonary angiogram with no evidence of pulmonary artery embolism. 2. Other extensive chronic findings as above. All CT scans are performed using dose optimization techniques as appropriate to the performed exam an d include at least one of the following: Automated exposure control, adjustment of the mA and/or kV according t o size, and the use of iterative reconstruction technique.
--- NOTE | 2023-08-15 13:28 | CT ---
EXAM: CTA ABDOMEN AND PELVIS WITH AND WITHOUT CONTRAST HISTORY: Abdominal aneurysm TECHNIQUE: CT acquisition of the abdomen and pelvis from the lower thorax through the pelvis without intravenous contrast administration. CTA acquisition of the abdomen and pelvis with intravenous contr ast administration. IV Contrast: 100 mL of Omnipaque 350 administered. Gastrointestinal contrast: None. 3D/MIP/VR images were performed. CT Dose Reduction Techniques Performed: Yes. COMPARISON: Reviewed. FINDINGS: For reference, stenoses are graded as: mild (<50%), moderate (51-69%), severe (70-94%), critical (95- 99%) VASCULAR: Aorta: Maximum diameter: 2.6 cm. No significant stenosis. Prominent atherosclerotic plaque/calcific ation. Common Iliac arteries: No significant stenosis. No aneurysm. Internal Iliac arteries: No significant stenosis. External Iliac arteries: No significant stenosis. Celiac artery: No significant stenosis. Superior mesenteric artery: No significant stenosis. Inferior mesenteric artery: No significant stenosis. Left renal artery: No significant stenosis. Right renal artery: No significant stenosis. Limited venous system: Not well opacified due to phase of contrast. ABDOMEN/PELVIS: Lower Thorax: Within normal limits. Liver: No mass. Normal morphology. Hepatomegaly. Biliary: Punctate gallstones are seen. Pancreas: No duct dilation. No mass. Spleen: No mass. No splenomegaly. Adrenals: No mass. Kidneys and ureters: 2.9 cm left lower pole calcified renal lesion is nonspecific P No hydronephrosi s or calculus. Bilateral vascular calcifications are seen. GI Tract: No bowel dilation. No bowel wall thickening. Hiatal hernia. Diverticulosis. Peritoneal Cavity: No ascites. Lymph Nodes: No lymphadenopathy. Pelvis: No free fluid. Bladder is normal. Bones/Soft Tissues: Compression deformity of T12 and likely T11 partially visualized. Multilevel deg enerative changes with associated bilateral facet arthropathy with associated bilateral neural forami nal stenotic narrowings. No acute fracture or lytic lesion. Visualized abdominal wall soft tissues are unremarkable. IMPRESSION: Prominent aortoiliac vascular calcifications with no appreciable flow-limiting stenoses identified. No aneurysmal disease. Nonspecific 2.9 cm calcified left renal lesion. Outpatient renal ultrasound is advised to exclude ma lignancy. Unexpected finding. Chronic findings as above including hepatomegaly and cholelithiasis. All CT scans are performed using dose optimization techniques as appropriate to the performed exam an d include at least one of the following: Automated exposure control, adjustment of the mA and/or kV according t o size, and the use of iterative reconstruction technique.
[2023-08-15] MEDS ORDERED: TYLENOL PO PRN (14:46)
[2023-08-15] MEDS ORDERED: VEKLURY 200 MG in SODIUM CHLORIDE 250 ML IV ONE (14:46)
--- NOTE | 2023-08-15 14:57 | PCM ---
Date of Service Date Seen by Provider: 08/15/23 Time Seen by Provider: 14:30 Admit Day/Time Admission Date: 08/15/23 Admission Time: 14:46 Reason for Admission Chief Complaint: COVID PNEUMONIA, EXCERBATION COPD Hospital Provider Hospital Provider: Bernabe Encarnacion PA-C, [facility] Primary Care Physician Primary Care Physician: LV AGUILA MD History of Present Illness History of Present Illness: Patient is a 77 year old male with pmhx of COPD, chronic leukocytosis, hyperlipidemia, hypertension, pulmonary nodules, GERD, and BPH who presents to the ER with chest pain, nausea, and abdominal pain. Patient states he hasn't actually vomited, but has midsternal chest pain/burning. It improved with mylanta. He wears 2L at baseline and he states his breathing is unchanged. He states his symptoms started about two days ago. Upon further questioning, he may have had some diarrhea starting last week. In the ER he had a CTA chest and a/p which did not have any acute findings. WBC count 15 but it is chronically elevated, for which he is undergoing work up by oncology at this time. He tested positive for covid. Pt states that he has been vaccinated. We discussed risks vs benefits of remdesivir, he and his granddaughter would like to start it. Paxlovid not compatible with his medications. Pt currently chest pain free. Sounds more like acid reflux. Of note, pt was noted to have a rash of his right flank with blisters. No scabbing. Consistent with shingles. No hx of shingles vaccine. Pt unsure when this could've started as he was unaware he had a rash until now. Patient lives at home with a family member. Case Discussed With Case Discussed With: Patient's case was discussed with the ER Physicians, Dr. Geiger. [facility] Medical History History of COVID-19 07/10 took paxlovid Z86.16 - Personal history of COVID-19 (ICD-10) Pneumonia J18.9 - Pneumonia, unspecified organism (ICD-10) COPD (chronic obstructive pulmonary disease) J44.9 - Chronic obstructive pulmonary disease, unspecified (ICD-10) Pneumonia J18.9 - Pneumonia, unspecified organism (ICD-10) Influenza A J10.1 - FLU DUE TO OTH IDENT INFLUENZA VIRUS W OTH RESP MANIFEST (ICD-10) Left lower lobe pneumonia J18.9 - PNEUMONIA, UNSPECIFIED ORGANISM (ICD-10) Family History Mother No problems noted. FATHER No problems noted. Other No known health problems Social History Smoking and tobacco status: Former smoker Tobacco: How many years used: 50 How long ago did patient quit smoking: quit 3 years ago Alcohol intake: never Substance use type: does not use Household members: children Housing: house Marital status: W / Number of children: 2 service: Yes Current occupational status: retired Current gender identity: male Seatbelt use: always Working smoke detector in home: Yes Fire extinguisher in home: Yes Carbon monoxide detector in home: Yes Allergies Allergies Allergy/AdvReac Type Severity Reaction Status Date / Time cefdinir AdvReac Mild doent work Verified 08/15/23 10:26 dyazide AdvReac Intermediate hypotension Uncoded 08/15/23 10:26 Current Medications Home Medications albuterol sulfate 90 mcg/actuation aerosol inhaler (ProAir HFA) 2 puff inhalation Q4H PRN Shortness of air 08/25/17 [History Confirmed 08/15/23 Last Taken 10/14/22] montelukast 10 mg tablet 10 mg PO BEDTIME 10/14/22 [History Confirmed 08/15/23 Last Taken 10/13/22] acetaminophen 325 mg tablet 650 mg PO Q4-6H PRN Elevated temp or mild pain 12/09/22 [History Confirmed 08/15/23 Last Taken Unknown] albuterol sulfate 2.5 mg/3 mL (0.083 %) solution for nebulization 2.5 mg inhalation Q4H PRN shortness of breath or wheezing 12/09/22 [History Confirmed 08/15/23 Last Taken Unknown] ascorbic acid (vitamin C) 1,000 mg tablet 500 mg PO DAILY 12/09/22 [History Confirmed 08/15/23 Last Taken Unknown] cholecalciferol (vitamin D3) 25 mcg (1,000 unit) capsule 25 mcg PO DAILY 12/09/22 [History Confirmed 08/15/23 Last Taken Unknown] guaifenesin 600 mg tablet, extended release 12 hr 1,200 mg PO Q12H PRN congestion 12/09/22 [History Confirmed 08/15/23 Last Taken Unknown] multivitamin with minerals (Multiple Vitamin-Minerals tablet) 1 tab PO DAILY 12/09/22 [History Confirmed 08/15/23 Last Taken Unknown] furosemide 40 mg tablet 40 mg PO DAILY #90 tabs 04/30/23 [Rx Confirmed 08/15/23 Last Taken Unknown] propranolol 20 mg tablet See Rx Instructions .Route .COMPLEX #180 tabs 04/30/23 [Rx Confirmed 08/15/23 Last Taken Unknown] spironolactone 25 mg tablet 25 mg PO DAILY #90 tabs 04/30/23 [Rx Confirmed 08/15/23 Last Taken Unknown] tamsulosin 0.4 mg capsule See Rx Instructions .Route .COMPLEX #90 caps 07/15/23 [Rx Confirmed 08/15/23 Last Taken Unknown] budesonide 1 mg/2 mL suspension for nebulization (Pulmicort) 1 mg inhalation BID 08/15/23 [History Confirmed 08/15/23 Last Taken Unknown] cetirizine 10 mg tablet (24Hour Allergy) 10 mg PO DAILY 08/15/23 [History Confirmed 08/15/23 Last Taken Unknown] diphenhydramine HCl 25 mg capsule (Allergy (diphenhydramine)) 25 mg PO Q6H PRN itching 08/15/23 [History Confirmed 08/15/23 Last Taken Unknown] docusate sodium 100 mg capsule (Colace) 200 mg PO BID 08/15/23 [History Confirmed 08/15/23 Last Taken Unknown] fluticasone fur. 200 mcg-umeclid 62.5 mcg-vilant 25 mcg inhalat.powder (Trelegy Ellipta) 1 inh inhalation DAILY 08/15/23 [History Confirmed 08/15/23 Last Taken Unknown] magnesium 200 mg tablet 30 mg PO DAILY 08/15/23 [History Confirmed 08/15/23 Last Taken Unknown] omeprazole 20 mg capsule,delayed release See Rx Instructions .Route .COMPLEX 08/15/23 [History Confirmed 08/15/23 Last Taken Unknown] potassium chloride 10 mEq tablet,extended release(part/cryst) 20 meq PO BID 08/15/23 [History Confirmed 08/15/23 Last Taken Unknown] pravastatin 40 mg tablet 20 mg PO DAILY 08/15/23 [History Confirmed 08/15/23 Last Taken Unknown] vitamin B complex (B Complex-Vitamin B12 tablet) 1 tab PO DAILY 08/15/23 [History Confirmed 08/15/23 Last Taken Unknown] Home Acetaminophen (Acetaminophen 325 Mg Tablet) 650 mg PO Q4H PRN PRN Reason: Mild Pain Al Hydroxide/Mg Hydroxide (Mag Hydrox/Al Hydrox/Simeth 30 Ml Cup) 30 ml PO DAILY PRN PRN Reason: Heartburn Albuterol Sulfate (Albuterol Sulfate 0.083% Vial.Neb) 2.5 mg NEB RTQ4H PRN PRN Reason: Wheezing Albuterol Sulfate (Albuterol Sulfate 8 Gm Inhaler) 2 puff IH Q4H PRN PRN Reason: Wheezing Ascorbic Acid (Ascorbic Acid 500 Mg Tablet) 500 mg PO DAILY [facility] Budesonide (Budesonide 1 Mg/2 Ml Vial.Neb) 1 mg NEB RTBID [facility] Budesonide/Formoterol Fumarate (Budesonide/Formoterol Fumarate 160/4.5 Mcg Inhaler) 2 puff IH BID [facility] Last Admin: 08/15/23 20:27 Dose: 2 puff Cholecalciferol (Cholecalciferol (Vitamin D3) 1,000 Unit (25 Mcg) Tablet) 5,000 unit PO DAILY [facility] Diphenhydramine HCl (Diphenhydramine Hcl 25 Mg Capsule) 25 mg PO Q6H PRN PRN Reason: Itching Docusate Sodium (Docusate Sodium 100 Mg Capsule) 200 mg PO BID [facility] Enoxaparin Sodium (Enoxaparin Sodium 40 Mg/0.4 Ml Syr) 40 mg SUBCUT DAILY [facility] Furosemide (Furosemide 40 Mg Tablet) 40 mg PO DAILY [facility] Guaifenesin (Guaifenesin 600 Mg Tablet.Er) 1,200 mg PO Q12H PRN PRN Reason: Cough Sodium Chloride (Sodium Chloride) 1,000 mls @ 30 mls/hr IV .[id number] ONE Stop: 08/16/23 20:04 Last Admin: 08/15/23 16:12 Dose: 30 mls/hr Remdesivir 100 mg/ Sodium (Chloride) 100 mls @ 200 mls/hr IV DAILY [facility] Stop: 01/01/24 09:29 Loratadine (Loratadine 10 Mg Tablet) 10 mg PO DAILY [facility] Montelukast Sodium (Montelukast Sodium 10 Mg Tablet) 10 mg PO BEDTIME [facility] Last Admin: 08/15/23 20:25 Dose: 10 mg Multivitamins (Multivitamin 1 Tab) 1 tab PO DAILY [facility] Non-Formulary Medication (Magnesium) 30 mg PO DAILY [facility] Non-Formulary Medication (Vitamin B Complex [B Complex-Vitamin B12]) 1 tab PO DAILY [facility] Ondansetron HCl (Ondansetron Hcl/Pf 4 Mg/2 Ml Sdv) 4 mg IVP Q6H PRN PRN Reason: Nausea / Vomiting Pantoprazole Sodium (Pantoprazole Sodium 40 Mg Tablet.Dr) 40 mg PO ONCE ONE Stop: 08/16/23 09:01 Potassium Chloride (Potassium Chloride 20 Meq Tab) 20 meq PO BID [facility] Last Admin: 08/15/23 20:25 Dose: 20 meq Pravastatin Sodium (Pravastatin Sodium 40 Mg Tablet) 20 mg PO DAILY [facility] Prednisone (Prednisone 20 Mg Tablet) 40 mg PO DAILYWM2 [facility] Propranolol HCl (Propranolol Hcl 20 Mg Tablet) 20 mg PO BID [facility] Last Admin: 08/15/23 20:25 Dose: 20 mg Sodium Chloride (0.9% Sodium Chloride 10 Ml Disp.Syrin) 1 syr IVF PRN PRN PRN Reason: To flush IV Spironolactone (Spironolactone 25 Mg Tablet) 25 mg PO DAILY [facility] Tamsulosin HCl (Tamsulosin Hcl 0.4 Mg Cap.Er.24h) 0.4 mg PO DAILY [facility] Tiotropium [place] (Tiotropium [place] 18 Mcg Cap.W.Dev) 1 cap IH DAILY [facility] Valacyclovir HCl (Valacyclovir Hcl 500 Mg Tablet) 1,000 mg PO TID [facility] Last Admin: 08/15/23 20:25 Dose: 1,000 mg Discontinued Medications Albuterol/Ipratropium (Ipratropium/Albuterol Vial.Neb) 3 ml NEB ONCE STA Stop: 08/15/23 10:43 Last Admin: 08/15/23 10:59 Dose: 3 ml Docusate Sodium (Docusate Sodium 100 Mg Capsule) 200 mg PO DAILY [facility] Docusate Sodium (Docusate Sodium 100 Mg Capsule) 200 mg PO DAILY [facility] Levofloxacin/Dextrose (Levaquin 750 Mg/150 Ml D5w) 750 mg in 150 mls @ 100 mls/hr IV ONCE ONE Stop: 08/15/23 13:21 Last Admin: 08/15/23 12:24 Dose: 100 mls/hr Remdesivir 200 mg/ Sodium (Chloride) 250 mls @ 250 mls/hr IV ONCE ONE Stop: 08/15/23 15:45 Last Admin: 08/15/23 16:31 Dose: 250 mls/hr Methylprednisolone Sodium Succinate (Methylprednisolone Sod Succ/Pf 125 Mg/2 Ml Vial) 125 mg IVP ONCE ONE Stop: 08/15/23 10:43 Last Admin: 08/15/23 10:55 Dose: 125 mg Non-Formulary Medication (Cetirizine [24hour Allergy]) 10 mg PO DAILY [facility] Non-Formulary Medication (Nlvrnwxgtgd-Wtvksyxnh-Aoawamsz [Trelegy Ellipta]) 1 inh IH DAILY [facility] Ondansetron HCl (Ondansetron Hcl/Pf 4 Mg/2 Ml Sdv) 8 mg IVP ONCE STA Stop: 08/15/23 10:46 Last Admin: 08/15/23 10:55 Dose: 8 mg Pantoprazole Sodium (Pantoprazole Sodium 40 Mg Vial) 40 mg IVP ONCE ONE Stop: 08/15/23 10:46 Last Admin: 08/15/23 10:55 Dose: 40 mg Opioid Naive vs. Tolerant Does Patient Take Opioids?: Yes Is Patient Opioid Naive?: No What is Opioid Naive?: *Opioid Naive implies the patient is not already taking opioids or not chronically receiving opioids on a daily basis. *PRN dosing is not "usually" associated with tolerance. *Patients are at higher risk of over-sedation and aspiration. What is Opioid Tolerant?: *Opioid Tolerance implies less than the expected response to an opioid. *Acquired tolerance is defined by the patient taking 60mg of oral morphine daily (or equianalgesic dose of another opioid) for 1 week or more. *Often associated with chronic pain. *May take more than usual dose to achieve desired pain control. Review of Systems Constitutional: Denies Fever or Weakness Head: Reports Normocephalic and Atraumatic Throat: Denies Sore Throat or Difficulty Swallowing Cardiovascular: Reports Chest pain; Denies Edema Respiratory: Reports Cough and Shortness of air (baseline) Gastrointestinal: Reports Nausea, Diarrhea and Abdominal pain; Denies Vomiting or Melena Genitourinary: Denies Dysuria or Hematuria Dermatologic: Reports Rashes Neurological: Denies Headache or Syncope Physical examination Most Recent Vital Signs: Most Recent Vital Signs Temperature 98.8 F 08/15/23 10:28 Temperature Source Infrared 08/15/23 10:28 Pulse Rate 84 08/15/23 10:28 Respiratory Rate 16 08/15/23 10:28 Blood Pressure 156/87 H 08/15/23 10:28 O2 Sat by Pulse Oximetry 97 08/15/23 10:28 Height 5 ft 10 in 08/15/23 10:28 Weight 183 lb 9.6 oz 08/15/23 10:28 Telemetry Heart Rate 75 10/18/22 07:00 Telemetry SPO2 90 L 10/16/22 19:00 Appearance: Positive No Apparent Distress and Alert and Oriented x3 Skin: Positive Rashes (right flank - erythematous liner rash with blistering noted, no scabbing. Consistent with shingles. Involves only one dermatome. ) HEENT: Positive Normocephalic and Atraumatic Neck: Positive Supple and Midline Trachea Chest/Lungs: Positive Clear to Auscultation Bilaterally; Negative Rales, Rhonci or Wheezes Heart: Positive RRR GI/: Positive Soft, Nontender and Bowel Sounds Normal Neurological: Positive Cranial Nerves Intact, Alert, Oriented and Other ( +generalized weakness ) Psychiatric: Positive Oriented x4, Appropriate Mood, Appropriate Affect and Normal Insight Labs This Visit Labs This Visit: Labs This Visit 08/15/23 08/15/23 11:00 11:50 WBC 15.49 H RBC 3.99 L Hgb 11.7 L Hct 37.9 L MCV 95.0 H MCH 29.3 MCHC 30.9 L RDW Coeff of Terry 14.0 Plt Count 411 Immature Gran % (Auto) 0.4 Neut % (Auto) 73.2 Lymph % (Auto) 13.4 Kimball % (Auto) 10.4 H Eos % (Auto) 2.3 Baso % (Auto) 0.3 Neut # (Auto) 11.3 H Lymph # (Auto) 2.1 Kimball # (Auto) 1.6 Eos # (Auto) 0.4 Baso # (Auto) 0.1 Immature Gran # (Auto) 0.1 APTT 28.2 Sodium 136.5 Potassium 4.03 Chloride 100.2 Carbon Dioxide 28.7 Anion Gap 11.63 BUN 15.9 Creatinine 1.13 H Estimated GFR (MDRD) 63.00 BUN/Creatinine Ratio 14.07 Glucose 107.7 H Calcium 9.05 Magnesium 2.57 H Total Bilirubin 0.45 AST 20.6 ALT 14.8 Alkaline Phosphatase 83.5 Troponin I < 0.012 NT-Pro-B Natriuret Pep 131 H Total Protein 7.83 Albumin 4.26 Globulin 3.57 Albumin/Globulin Ratio 1.19 D-Dimer 714.03 H SARS CoV-2 RNA Rapid KENJI Positive H Imaging Imaging: EXAM: CTA ABDOMEN AND PELVIS WITH AND WITHOUT CONTRAST HISTORY: Abdominal aneurysm TECHNIQUE: CT acquisition of the abdomen and pelvis from the lower thorax through the pelvis without intravenous contrast administration. CTA acquisition of the abdomen and pelvis with intravenous contrast administration. IV Contrast: 100 mL of Omnipaque 350 administered. Gastrointestinal contrast: None. 3D/MIP/VR images were performed. CT Dose Reduction Techniques Performed: Yes. COMPARISON: Reviewed. FINDINGS: For reference, stenoses are graded as: mild (<50%), moderate (51-69%), severe (70-94%), critical (95-99%) VASCULAR: Aorta: Maximum diameter: 2.6 cm. No significant stenosis. Prominent atherosclerotic plaque/calcification. Common Iliac arteries: No significant stenosis. No aneurysm. Internal Iliac arteries: No significant stenosis. External Iliac arteries: No significant stenosis. Celiac artery: No significant stenosis. Superior mesenteric artery: No significant stenosis. Inferior mesenteric artery: No significant stenosis. Left renal artery: No significant stenosis. Right renal artery: No significant stenosis. Limited venous system: Not well opacified due to phase of contrast. ABDOMEN/PELVIS: Lower Thorax: Within normal limits. Liver: No mass. Normal morphology. Hepatomegaly. Biliary: Punctate gallstones are seen. Pancreas: No duct dilation. No mass. Spleen: No mass. No splenomegaly. Adrenals: No mass. Kidneys and ureters: 2.9 cm left lower pole calcified renal lesion is nonspecific P No hydronephrosis or calculus. Bilateral vascular calcifications are seen. GI Tract: No bowel dilation. No bowel wall thickening. Hiatal hernia. Diverticulosis. Peritoneal Cavity: No ascites. Lymph Nodes: No lymphadenopathy. Pelvis: No free fluid. Bladder is normal. Bones/Soft Tissues: Compression deformity of T12 and likely T11 partially visualized. Multilevel degenerative changes with associated bilateral facet arthropathy with associated bilateral neural foraminal stenotic narrowings. No acute fracture or lytic lesion. Visualized abdominal wall soft tissues are unremarkable. IMPRESSION: Prominent aortoiliac vascular calcifications with no appreciable flow-limiting stenoses identified. No aneurysmal disease. Nonspecific 2.9 cm calcified left renal lesion. Outpatient renal ultrasound is advised to exclude malignancy. Unexpected finding. Chronic findings as above including hepatomegaly and cholelithiasis. EXAM: CHEST CTA WITH CONTRAST (PULMONARY ARTERY) HISTORY: Chest pain and shortness of breath. TECHNIQUE: CTA acquisition of the chest from the thoracic inlet to the upper abdomen following IV contrast administration timed to filling of the pulmonary artery. IV Contrast: 100 mL of Omnipaque 350 administered. 3D/MIP/VR images were utilized. CT Dose Reduction Techniques Employed: Yes. COMPARISON: Reviewed. FINDINGS: Pulmonary Embolism: - Diagnostic quality: Adequate. - Central (Main/Lobar/Interlobar): No embolus. - Peripheral (Segmental/Subsegmental): No embolus. - Right ventricle/Left ventricle ratio: Normal. Lines, Tubes, Devices: None. Lung Parenchyma and Airways: Central airways are patent without endobronchial lesion. Severe emphysematous change. Calcified granuloma at the right apex. Streaky airspace opacities bilaterally No suspicious pulmonary nodule. Pleural Space: No pleural effusion or thickening. No pneumothorax. Thoracic Inlet, Mediastinum, and Eliana: Thyroid gland is normal. No lymphadenopathy. Heart, Vessels, and Pericardium: Scattered vascular including coronary artery atheromatous calcifications. The thoracic aorta is not dilated. The heart chambers are not enlarged. There is no pericardial effusion or thickening. Bones and Soft Tissues: Degenerative disease with age indeterminate compression fractures at T11 and T12 There is no new fracture or lytic lesion. Chest wall soft tissues are unremarkable. Upper Abdomen: The visualized portions of the liver, spleen, and adrenals are normal. IMPRESSION: 1. Normal CT pulmonary angiogram with no evidence of pulmonary artery embolism. 2. Other extensive chronic findings as above. EXAM: CHEST RADIOGRAPH TECHNIQUE: Single frontal chest radiograph. HISTORY: Shortness of breath. COMPARISON: 12/09/2022. FINDINGS: Scattered interstitial and reticular airspace opacities including nodular densities in the right upper lobe. Granulomatous changes. The heart size is normal. There is no pleural effusion. There is no pneumothorax. IMPRESSION: Stable imaging findings including suspicious nodular densities in the right upper lobe. Review Statement Review Statement: I have independently reviewed and interpreted the labs/EKGs/imaging that were ordered by the ER provider. I have reviewed all outside records that are available currently in our EMR including imaging/notes/labs from previous visits. Plan Plan: 1. Chest pain - Trop negative. EKG without acute findings. Echo ordered for tomorrow. Trend trops. Symptoms most consistent with acid reflux, mylanta prn and protonix ordered. 2. Covid 19 - Likely source of chest pain, nausea, abd pain. Imaging negative for acute findings. Discussed risks vs benefits of remdesivir, pt and granddaughter would like to proceed. Remdesivir (day 1) ordered. O2 97, on baseline O2, dex not indicated. Procal negative, will not treat with abx at this time. 3. Shingles - Unsure of duration. No scabbing over yet, still active. Will start valacyclovir and prednisone. Keep covered. 4. Chronic leukocytosis - Pt following with oncology outpatient, currently being worked up. 5. Lung nodules - PCP following outpatient. 6. Left renal lesion - Outpt f/u with US. DVT Prophylaxis: Lovenox Time Spent: Greater than 80 minutes spent with patient, 50% of the time spent with this patient was devoted to counseling and coordination of care. [facility] minutes spent discussing advance care planning. Admit to: Obs Discussed Plan of Care with Dr. Toni Aguila. Medications Medication Orders: Medications Ordered Category Date Time Status 0.9 % Sodium Chloride [Saline Flush] Meds 08/15/23 10:45 Active 1 syr IVF PRN PRN Acetaminophen [Tylenol] Meds 08/15/23 14:46 Active 650 mg PO Q4H PRN Prednisone Meds 08/16/23 07:30 Ordered 40 mg PO DAILYWM2 Remdesivir [Veklury] 100 mg Meds 08/16/23 09:00 Active 0.9 % Sodium Chloride [Sodium Chloride 100Ml] 100 ml IV DAILY Remdesivir [Veklury] 200 mg Meds 08/15/23 14:46 Active 0.9 % Sodium Chloride [Sodium Chloride] 250 ml IV ONCE Sodium Chloride 0.9% [Sodium Chloride] 1,000 ml Meds 08/15/23 10:45 Active IV 30 mls/hr Valacyclovir HCl [Valtrex] Meds 08/15/23 15:00 Ordered 1,000 mg PO TID
[2023-08-15] MEDS ORDERED: MYLANTA SUSP PO PRN (14:58)
[2023-08-15] MEDS ORDERED: ZOFRAN 4 MG/2 ML IVP PRN (14:59)
[2023-08-15 15:30] LABS: BILIRUBIN,URINE Negative (NEGATIVE); CLARITY,URINE Clear (CLEAR); COLOR,URINE Yellow (YELLOW); GLUCOSE, URINE (UA) Negative (NEGATIVE); KETONES,URINE 1+ (NEGATIVE); LEUKOCYTE ESTERASE ,URINE Negative (NEGATIVE); NITRITE,URINE Negative (NEGATIVE); PH,URINE 7.5 (5-9); PROTEIN,URINE Negative (NEGATIVE); URINE, BLOOD Trace-intact (NEGATIVE); UROBILINOGEN,URINE 0.2 (0.2)
[2023-08-15 15:54] LABS: RENAL EPITHELIAL CELLS,URINE 0-2 (NOT PRESENT); SQUAMOUS EPITHELIAL CELL,UR NOT PRESENT (0-5); TRIPLE PHOSPHATE CRYSTAL,UR 1+ (NOT PRESENT); URINE RBC, MICROSCOPIC 0-2 (0-2)
[2023-08-15 16:06] LABS: PROTHROMBIN TIME 9.9 SEC (9.3-11.0)
[2023-08-15 16:22] VITALS: BMI 25.9
[2023-08-15] MEDS: VALTREX PO SCH ×2 (16:28→20:25)
[2023-08-15] MEDS ORDERED: BENADRYL PO PRN (19:28)
[2023-08-15] MEDS ORDERED: VENTOLIN HFA IH PRN (19:28)
[2023-08-15] MEDS ORDERED: ALBUTEROL 0.083% NEB NEB PRN (19:28)
[2023-08-15] MEDS ORDERED: MUCINEX PO PRN (19:28)
[2023-08-15] MEDS: INDERAL PO SCH (20:25)
[2023-08-15] MEDS: K-DUR PO SCH (20:25)
[2023-08-15] MEDS: SYMBICORT 160-4.5 MCG INHALER IH SCH (20:27)
[2023-08-15] MEDS ORDERED: SINGULAIR PO SCH (21:00)
[2023-08-16] MEDS ORDERED: PULMICORT 1 MG/2 ML NEB SCH (06:00)
[2023-08-16 06:29] LABS: BASOPHILS % (AUTO) 0.2 % (0.0-3.0); HEMATOCRIT 35.5 % (42.0-52.0); HEMOGLOBIN 11.1 g/dl (14.0-18.0); IMMATURE GRANULOCYTE # (AUTO) 0.1 (0.0-1.0); IMMATURE GRANULOCYTE % (AUTO) 0.7 % (0.0-5.0); LYMPHOCYTES # (AUTO) 1.5 K/uL (0.60-3.4); LYMPHOCYTES % (AUTO) 11.7 (10.0-50.0); MEAN CORPUSCULAR HEMOGLOBIN 29.8 pg (27.0-31.0); MEAN CORPUSCULAR HGB CONC 31.3 (31.8-35.4); MEAN CORPUSCULAR VOLUME 95.2 fl (80.0-94.0); MONOCYTES # (AUTO) 1.2 K/uL (0.4-2.0); MONOCYTES % (AUTO) 9.4 (0-10); NEUTROPHILS # (AUTO) 9.9 K/ul (2.0-6.9); PLATELET COUNT 391 10^3/uL (140-440); RED BLOOD COUNT 3.73 10^6/ul (4.70-6.10)
[2023-08-16 06:50] LABS: ALANINE AMINOTRANSFERASE 13.3 U/L (0-50); ALBUMIN 3.77 g/dL (3.5-5.0); ALKALINE PHOSPHATASE 75.2 U/L (56-119); ASPARTATE AMINO TRANSFERASE 16.9 U/L (17-59); BILIRUBIN,TOTAL 0.19 mg/dL (0.2-1.3); BLOOD UREA NITROGEN 13.6 mg/dL (9-20); CALCIUM 8.78 mg/dL (8.4-10.2); CARBON DIOXIDE 27.8 mmol/L (22-30.0); CHLORIDE 102.4 mmol/L (98-107); CREATININE 0.89 mg/dL (0.60-1.10); GLUCOSE 113.5 mg/dL (74-106); POTASSIUM 4.79 mmol/L (3.5-5.1); SODIUM 135.5 mmol/L (134.5-145); TOTAL PROTEIN 7.1 g/dL (6.3-8.2)
[2023-08-16 07:09] LABS: PROTHROMBIN TIME 10.4 SEC (9.3-11.0)
[2023-08-16 07:11] LABS: CHOLESTEROL 155.5 mg/dL (0-200); HDL CHOLESTEROL 75.9 mg/dL (35-60); TRIGLYCERIDES 47.5 mg/dL (0-150)
[2023-08-16] MEDS ORDERED: PREDNISONE PO SCH (07:30)
[2023-08-16] MEDS ORDERED: PRAVACHOL PO SCH (09:00)
[2023-08-16] MEDS ORDERED: FLOMAX PO SCH (09:00)
[2023-08-16] MEDS ORDERED: BALANCED B-100 PO SCH (09:00)
[2023-08-16] MEDS ORDERED: COLACE PO SCH ×3 (09:00)
[2023-08-16] MEDS ORDERED: LOVENOX SUBCUT SCH (09:00)
[2023-08-16] MEDS ORDERED: VITAMIN C PO SCH (09:00)
[2023-08-16] MEDS ORDERED: NON-FORMULARY MEDICATION (Cetirizine [24hour Allergy] 10 mg tablet) PO SCH (09:00)
[2023-08-16] MEDS ORDERED: VITAMIN D PO SCH (09:00)
[2023-08-16] MEDS ORDERED: ALDACTONE PO SCH (09:00)
[2023-08-16] MEDS ORDERED: VEKLURY 100 MG in SODIUM CHLORIDE 100ML 100 ML IV SCH (09:00)
[2023-08-16] MEDS ORDERED: CLARITIN PO SCH (09:00)
[2023-08-16] MEDS ORDERED: MULTIVITAMIN TABLET PO SCH (09:00)
[2023-08-16] MEDS ORDERED: SPIRIVA IH SCH (09:00)
[2023-08-16] MEDS ORDERED: LASIX TAB PO SCH (09:00)
[2023-08-16] MEDS ORDERED: NON-FORMULARY MEDICATION (Magnesium 200 mg tablet) PO SCH (09:00)
[2023-08-16] MEDS ORDERED: NON-FORMULARY MEDICATION (Fluticasone-Umeclidin-Vilanter [Trelegy Ellipta] 200-62.5-25 mcg IH SCH (09:00)
[2023-08-16] MEDS ORDERED: PROTONIX PO ONE (09:00)
[2023-08-16] MEDS: VALTREX PO SCH (09:15)
[2023-08-16] MEDS: K-DUR PO SCH (09:16)
[2023-08-16] MEDS: INDERAL PO SCH (09:16)
[2023-08-16] MEDS: SYMBICORT 160-4.5 MCG INHALER IH SCH (10:43)
--- NOTE | 2023-08-16 12:30 | DCSUM ---
Admission Date Admission Date: 08/15/23 Discharge Date Discharge Date: 08/16/23 Admission Diagnosis Admission Diagnosis: 1. Chest pain 2. Covid 19 3. Shingles Discharge Diagnosis Discharge Diagnosis: 1. Chest pain, resolved 2. Covid 19 3. Shingles 4. Chronic leukocytosis . 5. Lung nodules 6. Left renal lesion Hospital Provider Hospital Provider: BERNABE ENCARNACION PA-C, [facility] Primary Care Physician Primary Care Physician: LV ROSALES MD Summary of History and Physical Summary of History and Physical: Patient is a 77 year old male with pmhx of COPD, chronic leukocytosis, hyperlipidemia, hypertension, pulmonary nodules, GERD, and BPH who presents to the ER with chest pain, nausea, and abdominal pain. Patient states he hasn't actually vomited, but has midsternal chest pain/burning. It improved with mylanta. He wears 2L at baseline and he states his breathing is unchanged. He states his symptoms started about two days ago. Upon further questioning, he may have had some diarrhea starting last week. In the ER he had a CTA chest and a/p which did not have any acute findings. WBC count 15 but it is chronically elevated, for which he is undergoing work up by oncology at this time. He tested positive for covid. Pt states that he has been vaccinated. We discussed risks vs benefits of remdesivir, he and his granddaughter would like to start it. Pt currently chest pain free. Sounds more like acid reflux. Of note, pt was noted to have a rash of his right flank with blisters. No scabbing. Consistent with shingles. No hx of shingles vaccine. Pt unsure when this could've started as he was unaware he had a rash until now. Patient lives at home with a family member. Hospital Course Subjective: Patient did well overnight. Repeat trop negative. Chest pain resolved. Clinically sounds more like acid reflux. Mylanta helped per patient. Patient remained on baseline oxygen. He received 2 doses of remdesivir, ordered filled out to get 3rd dose outpatient tomorrow. Granddaughter states they could bring him in. Cont covid isolation. Echo performed, reportedly looked good from Dr. Duane Rosales. EF normal. Pt was noted to have shingles. Will continue regimen of prednisone and valacyclovir outpatient. F/u with pcp within 1 week. Patient and granddaughter agree to plan of care. Of note patient has a left renal lesion, outpt f/u warranted. Pt, granddaughter, and Dr. Duane Rosales aware. Appearance: Pleasant, No Apparent Distress and Alert HEENT: MMM CVS: Other (RRR) Abdomen: Soft, Non-Tender and No Distention Respiratory: No Accessory Muscle Use Extremities: No Edema Vital Signs: Most Recent Vital Signs Temperature 98.2 F 08/16/23 10:00 Temperature Source Oral 08/16/23 10:00 Temperature Source Infrared 08/15/23 10:28 Pulse Rate 71 08/16/23 10:00 Respiratory Rate 21 H 08/16/23 10:00 Blood Pressure 152/78 H 08/16/23 10:00 Blood Pressure Mean 102 08/16/23 10:00 Blood Pressure Right Arm 169/105 08/15/23 15:58 Blood Pressure Location Right Arm 08/16/23 10:00 Blood Pressure Position Sitting 08/16/23 10:00 O2 Sat by Pulse Oximetry 98 08/16/23 10:00 Oxygen Delivery Method Nasal Cannula 08/16/23 11:49 Oxygen Flow Rate 2 08/16/23 10:00 Height 5 ft 10 in 08/15/23 15:58 Weight 181 lb 3.2 oz 08/15/23 15:58 Telemetry Type Remote Telemetry 08/16/23 07:00 Telemetry Monitoring Continues 08/16/23 07:00 Telemetry Heart Rate 67 08/16/23 07:00 Telemetry SPO2 99 08/16/23 07:00 EKG TX Interval 0.20 08/16/23 07:00 EKG QRS Interval 0.09 08/16/23 07:00 Telemetry Strip Reading Normal sinus rhythm 08/16/23 07:00 Imaging: EXAM: CTA ABDOMEN AND PELVIS WITH AND WITHOUT CONTRAST HISTORY: Abdominal aneurysm TECHNIQUE: CT acquisition of the abdomen and pelvis from the lower thorax through the pelvis without intravenous contrast administration. CTA acquisition of the abdomen and pelvis with intravenous contrast administration. IV Contrast: 100 mL of Omnipaque 350 administered. Gastrointestinal contrast: None. 3D/MIP/VR images were performed. CT Dose Reduction Techniques Performed: Yes. COMPARISON: Reviewed. FINDINGS: For reference, stenoses are graded as: mild (<50%), moderate (51-69%), severe (70-94%), critical (95-99%) VASCULAR: Aorta: Maximum diameter: 2.6 cm. No significant stenosis. Prominent atherosclerotic plaque/calcification. Common Iliac arteries: No significant stenosis. No aneurysm. Internal Iliac arteries: No significant stenosis. External Iliac arteries: No significant stenosis. Celiac artery: No significant stenosis. Superior mesenteric artery: No significant stenosis. Inferior mesenteric artery: No significant stenosis. Left renal artery: No significant stenosis. Right renal artery: No significant stenosis. Limited venous system: Not well opacified due to phase of contrast. ABDOMEN/PELVIS: Lower Thorax: Within normal limits. Liver: No mass. Normal morphology. Hepatomegaly. Biliary: Punctate gallstones are seen. Pancreas: No duct dilation. No mass. Spleen: No mass. No splenomegaly. Adrenals: No mass. Kidneys and ureters: 2.9 cm left lower pole calcified renal lesion is nonspecific P No hydronephrosis or calculus. Bilateral vascular calcifications are seen. GI Tract: No bowel dilation. No bowel wall thickening. Hiatal hernia. Diverticulosis. Peritoneal Cavity: No ascites. Lymph Nodes: No lymphadenopathy. Pelvis: No free fluid. Bladder is normal. Bones/Soft Tissues: Compression deformity of T12 and likely T11 partially visualized. Multilevel degenerative changes with associated bilateral facet arthropathy with associated bilateral neural foraminal stenotic narrowings. No acute fracture or lytic lesion. Visualized abdominal wall soft tissues are unremarkable. IMPRESSION: Prominent aortoiliac vascular calcifications with no appreciable flow-limiting stenoses identified. No aneurysmal disease. Nonspecific 2.9 cm calcified left renal lesion. Outpatient renal ultrasound is advised to exclude malignancy. Unexpected finding. Chronic findings as above including hepatomegaly and cholelithiasis. EXAM: CHEST CTA WITH CONTRAST (PULMONARY ARTERY) HISTORY: Chest pain and shortness of breath. TECHNIQUE: CTA acquisition of the chest from the thoracic inlet to the upper abdomen following IV contrast administration timed to filling of the pulmonary artery. IV Contrast: 100 mL of Omnipaque 350 administered. 3D/MIP/VR images were utilized. CT Dose Reduction Techniques Employed: Yes. COMPARISON: Reviewed. FINDINGS: Pulmonary Embolism: - Diagnostic quality: Adequate. - Central (Main/Lobar/Interlobar): No embolus. - Peripheral (Segmental/Subsegmental): No embolus. - Right ventricle/Left ventricle ratio: Normal. Lines, Tubes, Devices: None. Lung Parenchyma and Airways: Central airways are patent without endobronchial lesion. Severe emphysematous change. Calcified granuloma at the right apex. Streaky airspace opacities bilaterally No suspicious pulmonary nodule. Pleural Space: No pleural effusion or thickening. No pneumothorax. Thoracic Inlet, Mediastinum, and Eliana: Thyroid gland is normal. No lymphadenopathy. Heart, Vessels, and Pericardium: Scattered vascular including coronary artery atheromatous calcifications. The thoracic aorta is not dilated. The heart chambers are not enlarged. There is no pericardial effusion or thickening. Bones and Soft Tissues: Degenerative disease with age indeterminate compression fractures at T11 and T12 There is no new fracture or lytic lesion. Chest wall soft tissues are unremarkable. Upper Abdomen: The visualized portions of the liver, spleen, and adrenals are normal. IMPRESSION: 1. Normal CT pulmonary angiogram with no evidence of pulmonary artery embolism. 2. Other extensive chronic findings as above. EXAM: CHEST RADIOGRAPH TECHNIQUE: Single frontal chest radiograph. HISTORY: Shortness of breath. COMPARISON: 12/09/2022. FINDINGS: Scattered interstitial and reticular airspace opacities including nodular densit ies in the right upper lobe. Granulomatous changes. The heart size is normal. There is no pleural effusion. There is no pneumothorax. IMPRESSION: Stable imaging findings including suspicious nodular densities in the right upper lobe. Review Statement Review Statement: I have independently reviewed and interpreted the labs/EKGs/imaging that were ordered by the ER provider. I have reviewed all outside records that are available currently in our EMR including imaging/notes/labs from previous visits. Lab Results Last 24 Hours: 08/16/23 08/16/23 08/15/23 06:17 06:00 17:10 WBC 12.70 H RBC 3.73 L Hgb 11.1 L Hct 35.5 L MCV 95.2 H MCH 29.8 MCHC 31.3 L RDW Coeff of Terry 14.0 Plt Count 391 Immature Gran % (Auto) 0.7 Neut % (Auto) 78.0 H Lymph % (Auto) 11.7 [place]cal[place] % (Auto) 9.4 Eos % (Auto) 0.0 Baso % (Auto) 0.2 Neut # (Auto) 9.9 H Lymph # (Auto) 1.5 [place] # (Auto) 1.2 Eos # (Auto) 0.0 Baso # (Auto) 0.0 Immature Gran # (Auto) 0.1 PT 10.4 INR 1.00 Sodium 135.5 Potassium 4.79 Chloride 102.4 Carbon Dioxide 27.8 Anion Gap 10.09 BUN 13.6 Creatinine 0.89 Estimated GFR (MDRD) 82.00 BUN/Creatinine Ratio 15.28 Glucose 113.5 H Hemoglobin A1c 5.50 Calcium 8.78 Total Bilirubin 0.19 L AST 16.9 L ALT 13.3 Alkaline Phosphatase 75.2 Troponin I < 0.012 Total Protein 7.10 Albumin 3.77 Globulin 3.33 Albumin/Globulin Ratio 1.13 Triglycerides 47.5 Cholesterol 155.5 LDL Cholesterol, Calc 70 VLDL Cholesterol 10 HDL Cholesterol 75.9 H Cholesterol/HDL Ratio 2.0 L Procalcitonin Urine Color Urine Clarity Urine pH Ur Specific [place] Urine Protein Urine Glucose (UA) Urine Ketones Urine Blood Urine Nitrite Urine Bilirubin Urine Urobilinogen Ur Leukocyte Esterase Urine Microscopic RBC Ur Squamous Epith Cells Ur Renal Epithelial Cell Triple Phos Crystals 08/15/23 08/15/23 15:15 11:00 WBC RBC Hgb Hct MCV MCH MCHC RDW Coeff of Terry Plt Count Immature Gran % (Auto) Neut % (Auto) Lymph % (Auto) [place] % (Auto) Eos % (Auto) Baso % (Auto) Neut # (Auto) Lymph # (Auto) [place] # (Auto) Eos # (Auto) Baso # (Auto) Immature Gran # (Auto) PT 9.9 INR 0.95 Sodium Potassium Chloride Carbon Dioxide Anion Gap BUN Creatinine Estimated GFR (MDRD) BUN/Creatinine Ratio Glucose Hemoglobin A1c Calcium Total Bilirubin AST ALT Alkaline Phosphatase Troponin I Total Protein Albumin Globulin Albumin/Globulin Ratio Triglycerides Cholesterol LDL Cholesterol, Calc VLDL Cholesterol HDL Cholesterol Cholesterol/HDL Ratio Procalcitonin < 0.05 Urine Color Yellow Urine Clarity Clear Urine pH 7.5 Ur Specific [place] 1.015 Urine Protein Negative Urine Glucose (UA) Negative Urine Ketones 1+ H Urine Blood Trace-intact H Urine Nitrite Negative Urine Bilirubin Negative Urine Urobilinogen 0.2 Ur Leukocyte Esterase Negative Urine Microscopic RBC 0-2 Ur Squamous Epith Cells Not present Ur Renal Epithelial Cell 0-2 Triple Phos Crystals 1+ Discharge Instructions Discharge Planning: Discharge Planning > [address] Toni Rosales. Discharge Medications: Medications at Discharge (Home Meds & RX) albuterol sulfate 90 mcg/actuation aerosol inhaler (ProAir HFA) 2 puff inhalation Q4H PRN Shortness of air 08/25/17 montelukast 10 mg tablet 10 mg PO BEDTIME 10/14/22 acetaminophen 325 mg tablet 650 mg PO Q4-6H PRN Elevated temp or mild pain 12/09/22 albuterol sulfate 2.5 mg/3 mL (0.083 %) solution for nebulization 2.5 mg inhalation Q4H PRN shortness of breath or wheezing 12/09/22 ascorbic acid (vitamin C) 1,000 mg tablet 500 mg PO DAILY 12/09/22 cholecalciferol (vitamin D3) 25 mcg (1,000 unit) capsule 25 mcg PO DAILY 12/09/22 guaifenesin 600 mg tablet, extended release 12 hr 1,200 mg PO Q12H PRN congestion 12/09/22 multivitamin with minerals (Multiple Vitamin-Minerals tablet) 1 tab PO DAILY 12/09/22 furosemide 40 mg tablet 40 mg PO DAILY #90 tabs 04/30/23 propranolol 20 mg tablet See Rx Instructions .Route .COMPLEX #180 tabs 04/30/23 spironolactone 25 mg tablet 25 mg PO DAILY #90 tabs 04/30/23 tamsulosin 0.4 mg capsule See Rx Instructions .Route .COMPLEX #90 caps 07/15/23 budesonide 1 mg/2 mL suspension for nebulization (Pulmicort) 1 mg inhalation BID 08/15/23 cetirizine 10 mg tablet (24Hour Allergy) 10 mg PO DAILY 08/15/23 diphenhydramine HCl 25 mg capsule (Allergy (diphenhydramine)) 25 mg PO Q6H PRN itching 08/15/23 docusate sodium 100 mg capsule (Colace) 200 mg PO BID 08/15/23 fluticasone fur. 200 mcg-umeclid 62.5 mcg-vilant 25 mcg inhalat.powder (Trelegy Ellipta) 1 inh inhalation DAILY 08/15/23 magnesium 200 mg tablet 30 mg PO DAILY 08/15/23 omeprazole 20 mg capsule,delayed release See Rx Instructions .Route .COMPLEX 08/15/23 potassium chloride 10 mEq tablet,extended release(part/cryst) 20 meq PO BID 08/15/23 pravastatin 40 mg tablet 20 mg PO DAILY 08/15/23 vitamin B complex (B Complex-Vitamin B12 tablet) 1 tab PO DAILY 08/15/23 Discharge Plan Discharge Discharge Orders: Discharge Patient (ONCE); Ordered 08/16/23 Ordered By: BERNABE ENCARNACION Activity Restrictions/Additional Instructions: DISCHARGE TO HOME WITH FAMILY DX: COVID 19, CHEST PAIN, SHINGLES ACTIVITY: TOLERATED DIET: HEART HEALTHY COVID ISOLATION AVOID WOMEN DUE TO SHINGLES KEEP SHINGLES COVERED RETURN WITH WORSENING SYMPTOMS RETURN TOMORROW FOR 3RD REMDESIVIR INFUSION Patient Disposition: HOME WITH FAMILY CARE Prescriptions: New prednisone 10 mg tablet See Rx Instructions .ROUTE .COMPLEX Qty: 16 0RF Rx Instructions: START 08/17. TAKE 4 TABLETS DAILY X1 DAY, THEN 3 TABLETS DAILY X2 DAYS, THEN 2 TABLETS DAILY X2 DAYS, THEN 1 TABLET DAILY X2 DAYS, THEN DISCONTINUE valacyclovir 1 gram tablet 1,000 mg PO TID 6 Days Qty: 18 0RF Continued spironolactone 25 mg tablet 25 mg PO DAILY Qty: 90 1RF furosemide 40 mg tablet 40 mg PO DAILY Qty: 90 1RF propranolol 20 mg tablet See Rx Instructions .ROUTE .COMPLEX Qty: 180 1RF Dose Instruction: TAKE ONE TABLET BY MOUTH TWICE A DAY Rx Instructions: TAKE ONE TABLET BY MOUTH TWICE A DAY tamsulosin 0.4 mg capsule See Rx Instructions .ROUTE .COMPLEX Qty: 90 1RF Dose Instruction: TAKE 1 CAPSULE DAILY Rx Instructions: TAKE 1 CAPSULE DAILY montelukast 10 mg tablet 10 mg PO BEDTIME acetaminophen 325 mg tablet 650 mg PO Q4-6H PRN (Reason: Elevated temp or mild pain) albuterol sulfate 2.5 mg /3 mL (0.083 %) solution for nebulization 2.5 mg inhalation Q4H PRN (Reason: shortness of breath or wheezing) cholecalciferol (vitamin D3) 25 mcg (1,000 unit) capsule 25 mcg PO DAILY Patient Comments: Take 5 tablets by mouth daily. guaifenesin 600 mg tablet extended release 12hr 1,200 mg PO Q12H PRN (Reason: congestion) Multiple Vitamin-Minerals Tablet 1 tab PO DAILY ascorbic acid (vitamin C) 1,000 mg tablet 500 mg PO DAILY cetirizine [24Hour Allergy] 10 mg tablet 10 mg PO DAILY diphenhydramine HCl [Allergy (diphenhydramine)] 25 mg capsule 25 mg PO Q6H PRN (Reason: itching) docusate sodium [Colace] 100 mg capsule 200 mg PO BID vitamin B complex [B Complex-Vitamin B12] Tablet 1 tab PO DAILY Trelegy Ellipta 200-62.5-25 mcg blister with device 1 inh inhalation DAILY magnesium 200 mg tablet 30 mg PO DAILY pravastatin 40 mg tablet 20 mg PO DAILY omeprazole 20 mg capsule,delayed release(DR/EC) See Rx Instructions .ROUTE .COMPLEX Rx Instructions: TAKE ONE CAPSULE BY MOUTH DAILY potassium chloride 10 mEq tablet,ER particles/crystals 20 meq PO BID budesonide [Pulmicort] 1 mg/2 mL suspension for nebulization 1 mg inhalation BID albuterol sulfate [ProAir HFA] 200 PUFF/8.5 GM HFA aerosol inhaler 2 puff inhalation Q4H PRN (Reason: Shortness of air) Did you review [place] SUPER[employer]OR for ALL controlled substances?: Not Applicable Discussed opioids are addictive and Narcan is available by prescription or from pharmacy.: No Condition: Stable Referrals: LV ROSALES MD [Primary Care Provider] - 5-7 Days (please call and schedule your hospital follow up appointment. we were unable to do so during your stay as their office was closed. )
[2023-08-16 13:45] VITALS: BP 128/75; PULSE 64; RESP 18; TEMP 98
--- NOTE | 2023-08-16 14:19 | ECHO2D ---
Date of Exam: 08/16/2023 Ordering Physician: DR. ROSALES Room #: SCU 3 Reason for Echo: CHEST PAIN, CHRONIC OBSTRUCTIVE PULMONARY DISEASE, HYPERTENSION, HYPERLIPIDEMIA M-Mode Normal Adult Results LV Dimensions Normal Adult Results AoV Opening excursions >1.6 >1.6 LVEDD-base- 3.5-5.8 5.2 Ao root dimensions 2.0-3.7 3.6 LVESD-base- 3.1-4.6 L. Atrium dimensions 1.9-3.8 3.8 Post. Wall thickness 0.8-1.1 1.1 IV septum (thickness) 0.7-1.2 1.3 Post. Wall excursion 0.72-1.3 NORMAL Septal motion NORMAL Systolic motion R. Ventricular cavity 1.5-2.0 3.0 LVEF 60% 66% Paradoxical septal wall motion NORMAL 2-D : ENLARGED RIGHT VENTRICLE CAVITY OTHER [place] NORMAL REPORT. 2-D M Mode Echocardiogram was performed using apical four chamber and left parasternal long and short axis views. Mitral, tricuspid and aortic valves appear to be normal. Contractility of the left ventricle seems to be normal, so is the cavity size. Left atrial cavity size and aortic root appear to be normal. There is no pericardial effusion. There is no thrombus noted in the left ventricle or left atrial cavity. M-MODE: MV: NORMAL AV: NORMAL TV: NORMAL PV: NORMAL CHAMBER SIZE: ENLARGED RIGHT VENTRICLE CAVITY. WALL MOTION: NORMAL PERICARDIUM: NORMAL INTERPRETATION: 1. BORDERLINE LEFT VENTRICLE HYPERTROPHY. 2. ENLARGED RIGHT VENTRICLE CAVITY. 3. NORMAL VALVES. 4. NORMAL LEFT VENTRICLE SIZE AND LEFT VENTRICULAR CONTRACTILITY. MTDD
[2023-08-16] MEDS ORDERED: K-DUR PO SCH (17:00)
== END 2023-08-16 14:11 | disposition home or self-care (01) ==
LOC: SCU 10:26 → ED 10:26 → SCU 15:55
PROVIDERS: ADMIT Hospitalist; ATTEND Physician Assistant
DX: Z79.899 Other long term (current) drug therapy; R07.9 Chest pain, unspecified; R91.8 Other nonspecific abnormal finding of lung field; N28.9 Disorder of kidney and ureter, unspecified; Z99.81 Dependence on supplemental oxygen; J44.1 Chronic obstructive pulmonary disease with (acute) exacerbation; D72.829 Elevated white blood cell count, unspecified; R10.9 Unspecified abdominal pain; J12.89 Other viral pneumonia; U07.1 COVID-19; I10 Essential (primary) hypertension; R06.00 Dyspnea, unspecified; E78.5 Hyperlipidemia, unspecified; R11.2 Nausea with vomiting, unspecified; K21.9 Gastro-esophageal reflux disease without esophagitis; B02.9 Zoster without complications; Z86.16 Personal history of COVID-19; J44.0 Chronic obstructive pulmonary disease with (acute) lower respiratory infection; N40.0 Benign prostatic hyperplasia without lower urinary tract symptoms; Z51.81 Encounter for therapeutic drug level monitoring; K43.9 Ventral hernia without obstruction or gangrene

== ENCOUNTER 2024-01-15 20:01 | Inpatient (IN) ==
[2024-01-15] MEDS ORDERED: LASIX IVP STA (20:27)
--- NOTE | 2024-01-15 20:27 | ED.PDOC ---
General ED Provider: Dr. CHANDNI GUTIÉRREZ MD Chief Complaint: Shortness of Air Stated Complaint: Patient with a history of COPD, congestive heart failure leukocytosis complains of a persistent cough, shortness of breath, exertional dyspnea, and increasing swelling lower extremities. Family states the patient completed a course of antibiotic Levaquin along with steroids with no improvement. Patient states he takes 2 diuretics like 40 mg along with Aldactone 25 mg daily with no improvement in the swelling. Chest pain, diaphoresis, palpitations. Patient recently completed course of antibiotics Levaquin with steroids 3 days ago with no improvement Time Seen by Provider: 01/15/24 20:15 Information Source: Patient Exam Limitations: Clinical condition Primary Care Provider: LV ROSALES MD Nursing and Triage Documentation Reviewed and Agree: Yes What is Opioid Naive?: *Opioid Naive implies the patient is not already taking opioids or not chronically receiving opioids on a daily basis. *PRN dosing is not "usually" associated with tolerance. *Patients are at higher risk of over-sedation and aspiration. What is Opioid Tolerant?: *Opioid Tolerance implies less than the expected response to an opioid. *Acquired tolerance is defined by the patient taking 60mg of oral morphine daily (or equianalgesic dose of another opioid) for 1 week or more. *Often associated with chronic pain. *May take more than usual dose to achieve desired pain control. Review of Systems Review Of Systems Constitutional: Reports Weakness Eyes: Reports No symptoms Ears, Nose, Mouth, Throat: Reports No symptoms Respiratory: Reports Cough and Shortness of Breath Cardiac: Reports No symptoms GI: Reports Other (Large ventral hernia of abdominal distention) : Reports No symptoms Musculoskeletal: Reports Other (Lower extremity swelling) Skin: Reports No symptoms Neurological: Reports No symptoms Endocrine: Reports No symptoms Hematologic/Lymphatic: Reports No symptoms All Other Systems: Reviewed and Negative [facility] Medical History Acute exacerbation of chronic obstructive pulmonary disease J44.1 - Chronic obstructive pulmonary disease with (acute) exacerbation (ICD-10) Pneumonia due to 2019 novel coronavirus U07.1 - COVID-19 (ICD-10) J12.82 - Pneumonia due to coronavirus disease 2019 (ICD-10) Encounter for Medicare annual wellness exam Z00.00 - Encounter for general adult medical examination without abnormal findings (ICD-10) History of COVID-19 07/10 took paxlovid Z86.16 - Personal history of COVID-19 (ICD-10) Pneumonia J18.9 - Pneumonia, unspecified organism (ICD-10) COPD (chronic obstructive pulmonary disease) J44.9 - Chronic obstructive pulmonary disease, unspecified (ICD-10) Pneumonia J18.9 - Pneumonia, unspecified organism (ICD-10) Influenza A J10.1 - FLU DUE TO OTH IDENT INFLUENZA VIRUS W OTH RESP MANIFEST (ICD-10) Left lower lobe pneumonia J18.9 - PNEUMONIA, UNSPECIFIED ORGANISM (ICD-10) Family History Mother No problems noted. FATHER No problems noted. Other No known health problems Social History Smoking and tobacco status: Former smoker Tobacco: How many years used: 50 How long ago did patient quit smoking: quit 3 years ago Alcohol intake: never Substance use type: does not use Household members: children Housing: house Marital status: W / Number of children: 2 service: Yes Current occupational status: retired Current gender identity: male Seatbelt use: always Working smoke detector in home: Yes Fire extinguisher in home: Yes Carbon monoxide detector in home: Yes Physical Exam Physical Exam Appearance: Reports Ill-appearing Ill-appearing: None Pain Distress: None Eyes: Reports MARIELOS and EOMI ENT: Reports Ears normal, Nose normal and Oropharynx normal Neck: Supple Respiratory: Reports Breath sounds diminished (Decreased breath sounds at the bases without wheezes, rhonchi, or rales inspiratory crackles.) Cardiovascular: Reports RRR, Pulses normal and Other (There is marked JVD at 30 degrees angle of mandible.) GI/: Reports Soft, Nontender and Other ( there is a large ventral hernia there is a large ventral hernia easily reducible with recurrence there is no palpable masses noted.) Musculoskeletal: Reports Normal strength, Edema (There is 2+ pitting edema from the feet to the legs there is no calf tenderness noted.) and Other (There is 1+ presacral edema noted.) Skin: Reports Warm and Dry Neurological: Reports Sensation intact and Motor intact Psychiatric: Reports Affect appropriate and Mood appropriate Physician Notification Case Discussed Physician Notified: Discussed with Dr. Duane Rosales Time of Notification: 22:02 Comments: After discussion of all laboratory data x-rays recommendations admit to hospital service Physician Notified: Discussed with hospitalist Isabel Alcaraz Time of Notification: 22:07 Comments: After review of all laboratory data EKG and x-ray findings for admission to observation Critical Care Note Critical Care Note Total Critical Care Time (mins): 0 Course Course 01/15/24 20:27 01/15/24 20:27 Orders, Labs, Meds: Lab Review 01/15/24 01/15/24 01/15/24 20:27 20:38 21:00 WBC 16.21 H RBC 3.83 L Hgb 10.6 L Hct 34.9 L MCV 91.1 MCH 27.7 MCHC 30.4 L RDW Coeff of Terry 14.1 Plt Count 446 H Immature Gran % (Auto) 0.6 Neut % (Auto) 69.0 Lymph % (Auto) 14.6 [place] % (Auto) 11.8 H Eos % (Auto) 3.9 Baso % (Auto) 0.1 Neut # (Auto) 11.2 H Lymph # (Auto) 2.4 [place] # (Auto) 1.9 Eos # (Auto) 0.6 Baso # (Auto) 0.0 Immature Gran # (Auto) 0.1 PT 9.6 INR 0.92 APTT 22.6 L Puncture Site Rt rad Base Excess 14.2 H O2 Saturation 98.8 H ABG pH 7.45 ABG pCO2 55.0 H ABG pO2 118.0 H ABG HCO3 38.2 H ABG Total CO2 39.9 H Mook Test Pos Hemoglobin 0.9 Oxyhemoglobin 96.7 Carboxyhemoglobin 1.7 H Total Hemoglobin 10.7 L Oxygen Liter Flow 4.00 Sodium 135.1 Potassium 3.74 Chloride 98.6 Carbon Dioxide 33.6 H Anion Gap 6.64 BUN 13.5 Creatinine 0.85 Estimated GFR (MDRD) 87.00 BUN/Creatinine Ratio 15.88 Glucose 106.4 H Calcium 8.83 Magnesium 2.01 Total Bilirubin 0.53 AST 28.9 ALT 14.9 Alkaline Phosphatase 77.7 Ammonia Troponin I < 0.012 NT-Pro-B Natriuret Pep Total Protein 6.89 Albumin 3.78 Globulin 3.11 Albumin/Globulin Ratio 1.21 D-Dimer 649.47 H SARS CoV-2 RNA Rapid KENJI Negative 01/15/24 01/15/24 21:11 Unknown WBC RBC Hgb Hct MCV MCH MCHC RDW Coeff of Terry Plt Count Immature Gran % (Auto) Neut % (Auto) Lymph % (Auto) [place] % (Auto) Eos % (Auto) Baso % (Auto) Neut # (Auto) Lymph # (Auto) [place] # (Auto) Eos # (Auto) Baso # (Auto) Immature Gran # (Auto) PT INR APTT Puncture Site Base Excess O2 Saturation ABG pH ABG pCO2 ABG pO2 ABG HCO3 ABG Total CO2 Mook Test Hemoglobin Oxyhemoglobin Carboxyhemoglobin Total Hemoglobin Oxygen Liter Flow Sodium Potassium Chloride Carbon Dioxide Anion Gap BUN Creatinine Estimated GFR (MDRD) BUN/Creatinine Ratio Glucose Calcium Magnesium Total Bilirubin AST ALT Alkaline Phosphatase Ammonia 10.4 Troponin I NT-Pro-B Natriuret Pep 215 Total Protein Albumin Globulin Albumin/Globulin Ratio D-Dimer SARS CoV-2 RNA Rapid KENJI Orders Category Date Time Status ABG DRAW REQUEST Stat CARDIO 01/15/24 20:27 Completed EKG-(ED ONLY) Stat CARDIO 01/15/24 20:27 Completed NEBULIZER TREATMENT Stat CARDIO 01/15/24 20:32 Completed Director Of District Office [ED HYDROLOGY TECHNICIAN APPLIED] .ONCE EMERGENCY 01/15/24 20:27 Active Saline Lock [ED IV/MEDIPORT/POWERPORT] .ONCE EMERGENCY 01/15/24 20:27 Active ABG COOX Stat LAB 01/15/24 21:00 Completed AMMONIA Stat LAB 01/15/24 21:11 Completed BLOOD CULTURE (ED ONLY) Stat LAB 01/15/24 20:50 Received CBC W/ AUTO DIFF Stat LAB 01/15/24 20:27 Completed CMP [COMPREHENSIVE METABOLIC PANEL] Stat LAB 01/15/24 20:27 Completed COVID [SARS COV-2 RNA RAPID KENJI] Stat LAB 01/15/24 20:38 Completed D-DIMER Stat LAB 01/15/24 20:27 Completed MAGNESIUM Stat LAB 01/15/24 20:27 Completed PROBNP ED [NT-PROBNP(ED)] Stat LAB 01/15/24 Completed PT WITH INR Stat LAB 01/15/24 20:27 Completed PTT [PARTIAL THROMBOPLASTIN TIME] Stat LAB 01/15/24 20:27 Completed TROPONIN I Stat LAB 01/15/24 20:27 Completed 0.9 % Sodium Chloride [Saline Flush] Meds 01/15/24 20:27 Active 1 syr IVF PRN PRN Furosemide [Lasix] Meds 01/15/24 20:37 Discontinued 20 mg IVP ONCE STA Ipratropium/Albuterol Neb [Duoneb] Meds 01/15/24 20:31 Discontinued 3 ml NEB ONCE STA Levofloxacin/D5w [Levaquin 750 mg/150 ml D5w] Meds 01/15/24 20:40 Active 750 mg in 150 ml IV ONCE Methylprednisolone Sod Succ/Pf [Solu-Medrol 125 mg] Meds 01/15/24 20:32 Discontinued 125 mg IVP ONCE ONE CHEST, 1V AP ONLY Stat RADS 01/15/24 20:27 Completed Medications Generic Name Dose Route Start Last Admin Trade Name Freq PRN Reason Stop Dose Admin Levofloxacin/Dextrose 750 mg in 150 mls @ 100 mls/hr 01/15/24 20:40 01/15/24 20:59 Levaquin 750 Mg/150 Ml D5w IV 01/15/24 22:09 100 mls/hr ONCE ONE Administration Sodium Chloride 1 syr 01/15/24 20:27 0.9% Sodium Chloride 10 Ml Disp.Syrin IVF PRN PRN To flush IV Discontinued Medications Generic Name Dose Route Start Last Admin Trade Name Freq PRN Reason Stop Dose Admin Albuterol/Ipratropium 3 ml 01/15/24 20:31 01/15/24 20:55 Ipratropium/Albuterol Vial.Neb NEB 01/15/24 20:32 3 ml ONCE STA Administration Furosemide 20 mg 01/15/24 20:37 01/15/24 20:43 Furosemide Inj 20 Mg/2 Ml Vial IVP 01/15/24 20:38 20 mg ONCE STA Administration Methylprednisolone Sodium Succinate 125 mg 01/15/24 20:32 01/15/24 20:39 Methylprednisolone Sod Succ/Pf 125 Mg/2 Ml Vial IVP 01/15/24 20:33 125 mg ONCE ONE Administration Vital Signs: Temp Pulse Resp BP Pulse Ox 01/15/24 20:02 97.8 F 62 20 137/82 97 Discharge Plan Discharge Patient Disposition: PLACED OBSERVATION Discharge Problem: Acute dyspnea, Acute exacerbation of chronic obstructive pulmonary disease Acute on chronic congestive heart failure Qualifiers: Heart failure type: unspecified Qualified Code(s): I50.9 - Heart failure, unspecified Prescriptions: No Action spironolactone 25 mg tablet 25 mg PO DAILY Qty: 90 1RF furosemide 40 mg tablet 40 mg PO DAILY Qty: 90 1RF propranolol 20 mg tablet See Rx Instructions .ROUTE .COMPLEX Qty: 180 1RF Dose Instruction: TAKE ONE TABLET BY MOUTH TWICE A DAY Rx Instructions: TAKE ONE TABLET BY MOUTH TWICE A DAY tamsulosin 0.4 mg capsule See Rx Instructions .ROUTE .COMPLEX Qty: 90 1RF Dose Instruction: TAKE 1 CAPSULE DAILY Rx Instructions: TAKE 1 CAPSULE DAILY montelukast 10 mg tablet 10 mg PO BEDTIME acetaminophen 325 mg tablet 650 mg PO Q4-6H PRN (Reason: Elevated temp or mild pain) albuterol sulfate 2.5 mg /3 mL (0.083 %) solution for nebulization 2.5 mg inhalation Q4H PRN (Reason: shortness of breath or wheezing) cholecalciferol (vitamin D3) 25 mcg (1,000 unit) capsule 25 mcg PO DAILY Patient Comments: Take 5 tablets by mouth daily. guaifenesin 600 mg tablet extended release 12hr 1,200 mg PO Q12H PRN (Reason: congestion) Multiple Vitamin-Minerals Tablet 1 tab PO DAILY ascorbic acid (vitamin C) 1,000 mg tablet 500 mg PO DAILY cetirizine [24Hour Allergy] 10 mg tablet 10 mg PO DAILY docusate sodium [Colace] 100 mg capsule 200 mg PO BID PRN (Reason: constipation) vitamin B complex [B Complex-Vitamin B12] Tablet 1 tab PO DAILY Trelegy Ellipta 200-62.5-25 mcg blister with device 1 inh inhalation DAILY magnesium 200 mg tablet 30 mg PO DAILY omeprazole 20 mg capsule,delayed release(DR/EC) See Rx Instructions .ROUTE .COMPLEX Rx Instructions: TAKE ONE CAPSULE BY MOUTH DAILY potassium chloride 10 mEq tablet,ER particles/crystals 20 meq PO BID budesonide [Pulmicort] 1 mg/2 mL suspension for nebulization 1 mg inhalation BID pravastatin 40 mg tablet 40 mg PO DAILY albuterol sulfate [ProAir HFA] 200 PUFF/8.5 GM HFA aerosol inhaler 2 puff inhalation Q4H PRN (Reason: Shortness of air) bupropion HCl [Wellbutrin XL] 300 mg tablet extended release 24 hr 300 mg PO QAM Did you review [place] [employer] for ALL controlled substances?: Not Applicable ED Provider: CHANDNI GUTIÉRREZ Condition: Stable Physician Progress Note: History obtained from the family as well as the patient has a history of COPD, congestive heart failure, leukocytosis, complains of a persistent cough for the past 2 weeks associated with shortness of breath, exertional dyspnea more abdominal distention patient has a large ventral hernia. Patient is on oxygen 4 L nasal cannula at home. Patient denies abdominal pain chest pain nausea vomiting fever chills arthralgia. Patient recently finished a course of antibiotics Levaquin and steroids 3 days ago. Patient takes diuretics daily Lasix 40 mg and Aldactone 25 mg. States he has no improvement. Pulse oximetry upon arrival is 90%. There is no tachypnea there is no labored breathing there is no costal tractions noted. The arterial blood gas on 3 L of oxygen pH-7.45, pCO2 55, pO2 218,--bicarb-30.2, saturation-96.7 Saline lock established patient administered Lasix 20 mg daily Patient received a DuoNeb aerosol treatment After 2 sets of blood cultures patient administered Levaquin 750 mg IV piggyback. EKG interpretation by myself consistent with sinus rhythm sinus bradycardia rate 58 there is some esophagus with changes anterior septal laterally. There is no prolongation of NH and QT interval. Portable chest x-ray interpretation per radiologist consistent with bibasilar atelectasis there is no focal consolidation or large pleural effusion or discernible pneumothorax. Trachea is midline. All laboratory data reviewed and are within normal limits troponin 0.012, BNP is 215, the BMP is within normal limits GFR is 87, CBC normal except for white blood cell count of 16,000. Differential diagnosis: 1) acute dyspnea 2) exacerbation COPD 3) acute on chronic heart failure Discussed with Dr. Duane Rosales at 2201 recommendations admit to hospital service Discussed with hospitalist Isabel Alcaraz at 2206 for observation
[2024-01-15] MEDS: SOLU-MEDROL 125 MG IVP ONE (20:39)
[2024-01-15 20:40] LABS: BASOPHILS % (AUTO) 0.1 % (0.0-3.0); EOSINOPHILS # (AUTO) 0.6 K/ul (0.0-0.7); EOSINOPHILS % (AUTO) 3.9 % (0.0-7.0); HEMATOCRIT 34.9 % (42.0-52.0); HEMOGLOBIN 10.6 g/dl (14.0-18.0); IMMATURE GRANULOCYTE # (AUTO) 0.1 (0.0-1.0); IMMATURE GRANULOCYTE % (AUTO) 0.6 % (0.0-5.0); LYMPHOCYTES # (AUTO) 2.4 K/uL (0.60-3.4); LYMPHOCYTES % (AUTO) 14.6 (10.0-50.0); MEAN CORPUSCULAR HEMOGLOBIN 27.7 pg (27.0-31.0); MEAN CORPUSCULAR HGB CONC 30.4 (31.8-35.4); MEAN CORPUSCULAR VOLUME 91.1 fl (80.0-94.0); MONOCYTES # (AUTO) 1.9 K/uL (0.4-2.0); MONOCYTES % (AUTO) 11.8 (0-10); NEUTROPHILS # (AUTO) 11.2 K/ul (2.0-6.9); PLATELET COUNT 446 10^3/uL (140-440); RDW COEFFICIENT OF VARIATION 14.1 % (11.6-14.8); RED BLOOD COUNT 3.83 10^6/ul (4.70-6.10); WHITE BLOOD COUNT 16.21 K/ul (4.2-10.2)
[2024-01-15] MEDS: LASIX IVP STA (20:43)
[2024-01-15 20:54] LABS: ALANINE AMINOTRANSFERASE 14.9 U/L (0-50); ALBUMIN 3.78 g/dL (3.5-5.0); ALKALINE PHOSPHATASE 77.7 U/L (56-119); ASPARTATE AMINO TRANSFERASE 28.9 U/L (17-59); BILIRUBIN,TOTAL 0.53 mg/dL (0.2-1.3); BLOOD UREA NITROGEN 13.5 mg/dL (9-20); CALCIUM 8.83 mg/dL (8.4-10.2); CARBON DIOXIDE 33.6 mmol/L (22-30.0); CHLORIDE 98.6 mmol/L (98-107); CREATININE 0.85 mg/dL (0.60-1.10); GLUCOSE 106.4 mg/dL (74-106); MAGNESIUM 2.01 mg/dL (1.6-2.3); POTASSIUM 3.74 mmol/L (3.5-5.1); SODIUM 135.1 mmol/L (134.5-145); TOTAL PROTEIN 6.89 g/dL (6.3-8.2)
[2024-01-15] MEDS: DUONEB NEB STA (20:55)
[2024-01-15] MEDS: LEVAQUIN 750 MG/150 ML D5W 750 MG/150 ML BAG IV ONE (20:59)
[2024-01-15 21:05] LABS: ABG O2 HGB 96.7 % (95-100); ABG PH 7.45 (7.35-7.45); BEecf 14.2 (-2.0-3.0); COHb 1.7 (0.5-1.5); HCO3 38.2 (21-28); MetHb 0.9 (0-1.5); TCO2 39.9 (19-24); sO2 98.8 % (94-98); tHb 10.7 g/dl (11.7-17.4)
[2024-01-15 21:06] LABS: TROPONIN I < 0.012 ng/ml (0.0000-0.120)
[2024-01-15 21:07] LABS: PARTIAL THROMBOPLASTIN TIME 22.6 SEC (23.9-40.0); PROTHROMBIN TIME 9.6 SEC (9.3-11.0)
[2024-01-15 21:28] LABS: SARS COV-2 RNA RAPID NAAT NEGATIVE (NEGATIVE)
--- NOTE | 2024-01-15 21:47 | DI ---
EXAM: SINGLE AP VIEW OF THE CHEST HISTORY: Dyspnea. Shortness of breath. COMPARISON: 09/14/2023. FINDINGS: There is bibasilar atelectasis.There is no focal consolidation or large pleural effusion. The trachea is midline. The cardiomediastinal silhouette is within the normal limits. The osseous structures are intact. IMPRESSION: 1. Bibasilar atelectasis. 2. No focal consolidation, large pleural effusion, or discernible pneumothorax.
[2024-01-15] MEDS ORDERED: ZOFRAN 4 MG/2 ML IVP PRN (22:14)
[2024-01-15] MEDS ORDERED: TYLENOL PO PRN (22:14)
[2024-01-15] MEDS: INDERAL PO SCH (23:26)
[2024-01-15 23:52] VITALS: BMI 25.8
[2024-01-16] MEDS: DUONEB NEB PRN (00:18)
[2024-01-16] MEDS: LASIX IVP SCH (03:57)
[2024-01-16 05:14] LABS: BASOPHILS % (AUTO) 0.1 % (0.0-3.0); HEMATOCRIT 33.2 % (42.0-52.0); HEMOGLOBIN 10.5 g/dl (14.0-18.0); IMMATURE GRANULOCYTE # (AUTO) 0.1 (0.0-1.0); IMMATURE GRANULOCYTE % (AUTO) 0.7 % (0.0-5.0); LYMPHOCYTES # (AUTO) 0.9 K/uL (0.60-3.4); LYMPHOCYTES % (AUTO) 10.7 (10.0-50.0); MEAN CORPUSCULAR HEMOGLOBIN 28.5 pg (27.0-31.0); MEAN CORPUSCULAR HGB CONC 31.6 (31.8-35.4); MONOCYTES # (AUTO) 0.1 K/uL (0.4-2.0); MONOCYTES % (AUTO) 0.8 (0-10); NEUTROPHILS # (AUTO) 7.5 K/ul (2.0-6.9); NEUTROPHILS % (AUTO) 87.7 % (42.2-75.2); PLATELET COUNT 413 10^3/uL (140-440); RDW COEFFICIENT OF VARIATION 14.1 % (11.6-14.8); RED BLOOD COUNT 3.69 10^6/ul (4.70-6.10)
[2024-01-16 05:27] LABS: WHITE BLOOD COUNT 8.58 K/ul (4.2-10.2)
[2024-01-16 05:32] LABS: ALANINE AMINOTRANSFERASE 14.9 U/L (0-50); ALBUMIN 3.86 g/dL (3.5-5.0); ALKALINE PHOSPHATASE 84.8 U/L (56-119); ASPARTATE AMINO TRANSFERASE 21.7 U/L (17-59); BILIRUBIN,TOTAL 0.52 mg/dL (0.2-1.3); BLOOD UREA NITROGEN 13.8 mg/dL (9-20); CALCIUM 8.86 mg/dL (8.4-10.2); CARBON DIOXIDE 33.4 mmol/L (22-30.0); CHLORIDE 95.3 mmol/L (98-107); CREATININE 0.96 mg/dL (0.60-1.10); GLUCOSE 179.1 mg/dL (74-106); POTASSIUM 3.54 mmol/L (3.5-5.1); SODIUM 134.2 mmol/L (134.5-145); TOTAL PROTEIN 7.06 g/dL (6.3-8.2)
[2024-01-16 06:02] LABS: THYROID STIMULATING HORMONE 0.078 uIU/L (0.465-4.68)
[2024-01-16] MEDS: SYMBICORT 160-4.5 MCG INHALER IH SCH (08:47)
[2024-01-16] MEDS: ALDACTONE PO SCH (08:48)
[2024-01-16] MEDS: WELLBUTRIN XL PO SCH (08:48)
[2024-01-16] MEDS: NEURONTIN PO SCH (08:48)
[2024-01-16] MEDS ORDERED: NON-FORMULARY MEDICATION (Fluticasone-Umeclidin-Vilanter [Trelegy Ellipta] 200-62.5-25 mcg IH SCH (09:00)
[2024-01-16] MEDS ORDERED: PRAVACHOL PO SCH (09:00)
[2024-01-16] MEDS ORDERED: PULMICORT 1 MG/2 ML NEB SCH (09:00)
[2024-01-16] MEDS ORDERED: FLOMAX PO SCH (09:00)
[2024-01-16] MEDS ORDERED: K-DUR PO SCH (09:00)
[2024-01-16] MEDS ORDERED: PRILOSEC PO SCH (09:00)
--- NOTE | 2024-01-16 10:46 | PCM ---
Date of Service Date Seen by Provider: 01/16/24 Time Seen by Provider: 08:30 Admit Day/Time Admission Date: 01/15/24 Admission Time: 22:12 Reason for Admission Chief Complaint: COPD, CHF EXACERBATION, DYSPNIA Hospital Provider Hospital Provider: BERNABE ENCARNACION PA-C, [facility] [place] [facility] Primary Care Physician: LV ROSALES MD History of Present Illness History of Present Illness: Patient is a 78 year old male with pmhx of HFpEF, COPD with chronic respiratory failure at 3L, depression, AAA, hyperlipidemia, hypertension, who presents to ER with worsening edema and sob over the last several days. Patient normally takes lasix and spironolactone. He has limited ambulation ability but has been more SOB with exertion lately as well. He is on his baseline 3L. In ER CXR negative for acute findings but noted to have pitting edema to abdomen. Pt was given lasix, duoneb, steroids, levaquin. Admitted to med surg. Pt lives at home with granddaughter, who is a [employer]. Upon my evaluation today, he is feeling some better and thinks his swelling has improved. Case Discussed With Case Discussed With: Patient's case was discussed with the ER Physicians, Dr. Geiger. [facility] Medical History Acute exacerbation of chronic obstructive pulmonary disease J44.1 - Chronic obstructive pulmonary disease with (acute) exacerbation (ICD-10) Pneumonia due to 2019 novel coronavirus U07.1 - COVID-19 (ICD-10) J12.82 - Pneumonia due to coronavirus disease 2019 (ICD-10) Encounter for Medicare annual wellness exam Z00.00 - Encounter for general adult medical examination without abnormal findings (ICD-10) History of COVID-19 07/10 took paxlovid Z86.16 - Personal history of COVID-19 (ICD-10) Pneumonia J18.9 - Pneumonia, unspecified organism (ICD-10) COPD (chronic obstructive pulmonary disease) J44.9 - Chronic obstructive pulmonary disease, unspecified (ICD-10) Pneumonia J18.9 - Pneumonia, unspecified organism (ICD-10) Influenza A J10.1 - FLU DUE TO OTH IDENT INFLUENZA VIRUS W OTH RESP MANIFEST (ICD-10) Left lower lobe pneumonia J18.9 - PNEUMONIA, UNSPECIFIED ORGANISM (ICD-10) Family History Mother No problems noted. FATHER No problems noted. Other No known health problems Social History Smoking and tobacco status: Former smoker Tobacco: How many years used: 50 How long ago did patient quit smoking: quit 3 years ago Alcohol intake: never Substance use type: does not use Household members: children Housing: house Marital status: W / Number of children: 2 service: Yes Current occupational status: retired Current gender identity: male Seatbelt use: always Working smoke detector in home: Yes Fire extinguisher in home: Yes Carbon monoxide detector in home: Yes Allergies Allergies Allergy/AdvReac Type Severity Reaction Status Date / Time hydrochlorothiazide AdvReac Intermediate Hypotension Verified 01/15/24 20:17 [From Dyazide] triamterene [From Dyazide] AdvReac Intermediate Hypotension Verified 01/15/24 20:17 cefdinir AdvReac Mild doent work Verified 01/15/24 20:17 Current Medications Home Medications albuterol sulfate 90 mcg/actuation aerosol inhaler (ProAir HFA) 2 puff inhalation Q4H PRN Shortness of air 08/25/17 [History Confirmed 01/15/24 Last Taken 10/14/22] montelukast 10 mg tablet 10 mg PO BEDTIME 10/14/22 [History Confirmed 01/15/24 Last Taken 10/13/22] acetaminophen 325 mg tablet 650 mg PO Q4-6H PRN Elevated temp or mild pain 12/09/22 [History Confirmed 01/15/24 Last Taken Unknown] albuterol sulfate 2.5 mg/3 mL (0.083 %) solution for nebulization 2.5 mg inhalation Q4H PRN shortness of breath or wheezing 12/09/22 [History Confirmed 01/15/24 Last Taken Unknown] ascorbic acid (vitamin C) 1,000 mg tablet 500 mg PO DAILY 12/09/22 [History Confirmed 01/15/24 Last Taken Unknown] cholecalciferol (vitamin D3) 25 mcg (1,000 unit) capsule 25 mcg PO DAILY 12/09/22 [History Confirmed 01/15/24 Last Taken Unknown] guaifenesin 600 mg tablet, extended release 12 hr 1,200 mg PO Q12H PRN congestion 12/09/22 [History Confirmed 01/15/24 Last Taken Unknown] multivitamin with minerals (Multiple Vitamin-Minerals tablet) 1 tab PO DAILY 12/09/22 [History Confirmed 01/15/24 Last Taken Unknown] furosemide 40 mg tablet 40 mg PO DAILY #90 tabs 04/30/23 [Rx Confirmed 01/15/24 Last Taken Unknown] propranolol 20 mg tablet See Rx Instructions .Route .COMPLEX #180 tabs 04/30/23 [Rx Confirmed 01/15/24 Last Taken Unknown] spironolactone 25 mg tablet 25 mg PO DAILY #90 tabs 04/30/23 [Rx Confirmed 01/15/24 Last Taken Unknown] budesonide 1 mg/2 mL suspension for nebulization (Pulmicort) 1 mg inhalation BEDTIME PRN shortness of air 08/15/23 [History Confirmed 01/15/24 Last Taken 01/14/24] cetirizine 10 mg tablet (24Hour Allergy) 10 mg PO DAILY 08/15/23 [History Confirmed 01/15/24 Last Taken Unknown] docusate sodium 100 mg capsule (Colace) 200 mg PO BID PRN constipation 08/15/23 [History Confirmed 01/15/24 Last Taken Unknown] fluticasone fur. 200 mcg-umeclid 62.5 mcg-vilant 25 mcg inhalat.powder (Trelegy Ellipta) 1 inh inhalation DAILY 08/15/23 [History Confirmed 01/15/24 Last Taken Unknown] magnesium 200 mg tablet 30 mg PO DAILY 08/15/23 [History Confirmed 01/15/24 Last Taken Unknown] omeprazole 20 mg capsule,delayed release 20 mg PO BID 08/15/23 [History Confirmed 01/15/24 Last Taken 01/15/24] potassium chloride 10 mEq tablet,extended release(part/cryst) 20 meq PO DAILY 08/15/23 [History Confirmed 01/15/24 Last Taken 01/15/24] vitamin B complex (B Complex-Vitamin B12 tablet) 2 tab PO DAILY 08/15/23 [History Confirmed 01/15/24 Last Taken 01/15/24] bupropion HCl 300 mg 24 hr tablet, extended release (Wellbutrin XL) 300 mg PO QAM 12/24/23 [History Confirmed 01/15/24 Last Taken Unknown] pravastatin 40 mg tablet 40 mg PO BEDTIME 12/24/23 [History Confirmed 01/15/24 Last Taken 01/15/24] gabapentin 100 mg capsule 200 mg PO BID 01/15/24 [History Confirmed 01/15/24 Last Taken 01/15/24] tamsulosin 0.4 mg capsule See Rx Instructions .Route .COMPLEX 01/15/24 [History Confirmed 01/15/24 Last Taken 01/15/24] Home Acetaminophen (Acetaminophen 325 Mg Tablet) 650 mg PO Q4H PRN PRN Reason: Mild Pain Albuterol/Ipratropium (Ipratropium/Albuterol Vial.Neb) 3 ml NEB RTQ6H PRN PRN Reason: Wheezing Last Admin: 01/16/24 00:18 Dose: 3 ml Budesonide/Formoterol Fumarate (Budesonide/Formoterol Fumarate 160/4.5 Mcg Inhaler) 2 puff IH BID [facility] Last Admin: 01/16/24 08:47 Dose: 2 puff Bupropion HCl (Bupropion Hcl 150 Mg Tab.Er.24h) 300 mg PO QAM [facility] Last Admin: 01/16/24 08:48 Dose: 300 mg Docusate Sodium (Docusate Sodium 100 Mg Capsule) 200 mg PO BID PRN PRN Reason: Constipation Enoxaparin Sodium (Enoxaparin Sodium 40 Mg/0.4 Ml Syr) 40 mg SUBCUT DAILY [facility] Last Admin: 01/16/24 13:26 Dose: 40 mg Furosemide (Furosemide Inj 40 Mg/4 Ml Vial) 40 mg IVP Q8HR [facility] Last Admin: 01/16/24 13:26 Dose: 40 mg Gabapentin (Gabapentin 100 Mg Capsule) 200 mg PO BID [facility] Last Admin: 01/16/24 08:48 Dose: 200 mg Non-Formulary Medication (Vitamin B Complex [B Complex-Vitamin B12]) 2 tab PO DAILY [facility] Last Admin: 01/16/24 08:49 Dose: Not Given Ondansetron HCl (Ondansetron Hcl/Pf 4 Mg/2 Ml Sdv) 4 mg IVP Q6H PRN PRN Reason: Nausea / Vomiting Propranolol HCl (Propranolol Hcl 20 Mg Tablet) 20 mg PO BID [facility] Last Admin: 01/16/24 08:48 Dose: 20 mg Sodium Chloride (0.9% Sodium Chloride 10 Ml Disp.Syrin) 1 syr IVF PRN PRN PRN Reason: To flush IV Last Admin: 01/16/24 03:58 Dose: 1 syr Spironolactone (Spironolactone 25 Mg Tablet) 25 mg PO DAILY [facility] Last Admin: 01/16/24 08:48 Dose: 25 mg Tamsulosin HCl (Tamsulosin Hcl 0.4 Mg Cap.Er.24h) 0.4 mg PO BEDTIME TIMOTHY Tiotropium Carlotta (Tiotropium Carlotta 18 Mcg Cap.W.Dev) 1 cap IH DAILY [facility] Last Admin: 01/16/24 15:24 Dose: 1 cap Discontinued Medications Albuterol/Ipratropium (Ipratropium/Albuterol Vial.Neb) 3 ml NEB ONCE STA Stop: 01/15/24 20:32 Last Admin: 01/15/24 20:55 Dose: 3 ml Furosemide (Furosemide Inj 20 Mg/2 Ml Vial) 20 mg IVP ONCE STA Stop: 01/15/24 20:38 Last Admin: 01/15/24 20:43 Dose: 20 mg Levofloxacin/Dextrose (Levaquin 750 Mg/150 Ml D5w) 750 mg in 150 mls @ 100 mls/hr IV ONCE ONE Stop: 01/15/24 22:09 Last Admin: 01/15/24 20:59 Dose: 100 mls/hr Methylprednisolone Sodium Succinate (Methylprednisolone Sod Succ/Pf 125 Mg/2 Ml Vial) 125 mg IVP ONCE ONE Stop: 01/15/24 20:33 Last Admin: 01/15/24 20:39 Dose: 125 mg Non-Formulary Medication (Psluwsyuezf-Wudfqarae-Qhlfcfzn [Trelegy Ellipta]) 1 inh IH DAILY [facility] Tiotropium Carlotta (Tiotropium Carlotta 18 Mcg Cap.W.Dev) 1 cap IH DAILY [facility] Last Admin: 01/16/24 15:25 Dose: Not Given Opioid Naive vs. Tolerant Does Patient Take Opioids?: No Is Patient Opioid Naive?: Yes What is Opioid Naive?: *Opioid Naive implies the patient is not already taking opioids or not chronically receiving opioids on a daily basis. *PRN dosing is not "usually" associated with tolerance. *Patients are at higher risk of over-sedation and aspiration. Is Patient Opioid Tolerant?: No What is Opioid Tolerant?: *Opioid Tolerance implies less than the expected response to an opioid. *Acquired tolerance is defined by the patient taking 60mg of oral morphine daily (or equianalgesic dose of another opioid) for 1 week or more. *Often associated with chronic pain. *May take more than usual dose to achieve desired pain control. Review of Systems Constitutional: Reports Fatigue, Recent Weight Gain and Weakness; Denies Fever Head: Reports Normocephalic and Atraumatic Cardiovascular: Reports Edema; Denies Chest pain or Chest Pressure Respiratory: Reports Shortness of air; Denies Cough Gastrointestinal: Denies Nausea, Vomiting, Diarrhea, Abdominal pain or Melena Dermatologic: Denies Rashes Neurological: Reports Weakness and Problems with walking; Denies Headache Physical examination Most Recent Vital Signs: Most Recent Vital Signs Temperature 98.1 F 01/16/24 10:00 Temperature Source Temporal Artery Scan 01/16/24 10:00 Temperature Source Oral 01/15/24 20:02 Pulse Rate 91 01/16/24 10:00 Respiratory Rate 18 01/16/24 10:00 Blood Pressure 129/80 01/16/24 10:00 Blood Pressure Mean 96 01/16/24 10:00 Blood Pressure Left Arm 135/89 01/15/24 22:39 Blood Pressure Location Right Arm 01/16/24 10:00 Blood Pressure Position Supine 01/16/24 05:43 O2 Sat by Pulse Oximetry 95 01/16/24 10:00 Oxygen Delivery Method Nasal Cannula 01/16/24 10:00 Oxygen Flow Rate 2 01/16/24 10:00 Height 5 ft 10 in 01/15/24 22:39 Weight 180 lb 01/15/24 22:39 Telemetry Type Remote Telemetry 01/16/24 07:00 Telemetry Monitoring Continues 01/16/24 07:00 Telemetry Heart Rate 90 01/16/24 07:00 Telemetry SPO2 94 01/16/24 07:00 EKG TN Interval 0.16 01/16/24 07:00 EKG QRS Interval 0.06 01/16/24 07:00 Telemetry Strip Reading SR 01/16/24 07:00 Appearance: Positive No Apparent Distress and Alert and Oriented x3 Skin: Positive [place], Warm and Good Turgor HEENT: Positive Normocephalic and Atraumatic Neck: Positive Supple and Midline Trachea Chest/Lungs: Positive Clear to Auscultation Bilaterally and Other (+conversational ); Negative Rales, Rhonci or Wheezes Heart: Positive RRR GI/: Positive Soft, Nontender, Bowel Sounds Normal and No Distention Extremities: Positive Edema (2+ pitting edema to knees jesu) Neurological: Positive Cranial Nerves Intact, Alert, Oriented and Other (+generalized weakness ) Psychiatric: Positive Oriented x4, Appropriate Mood and Appropriate Affect Labs This Visit Labs This Visit: Labs This Visit 01/15/24 01/15/24 01/15/24 20:27 20:38 21:00 WBC 16.21 H RBC 3.83 L Hgb 10.6 L Hct 34.9 L MCV 91.1 MCH 27.7 MCHC 30.4 L RDW Coeff of Terry 14.1 Plt Count 446 H Immature Gran % (Auto) 0.6 Neut % (Auto) 69.0 Lymph % (Auto) 14.6 [place] % (Auto) 11.8 H Eos % (Auto) 3.9 Baso % (Auto) 0.1 Neut # (Auto) 11.2 H Lymph # (Auto) 2.4 [place] # (Auto) 1.9 Eos # (Auto) 0.6 Baso # (Auto) 0.0 Immature Gran # (Auto) 0.1 PT 9.6 INR 0.92 APTT 22.6 L Puncture Site Rt rad Base Excess 14.2 H O2 Saturation 98.8 H ABG pH 7.45 ABG pCO2 55.0 H ABG pO2 118.0 H ABG HCO3 38.2 H ABG Total CO2 39.9 H Mook Test Pos Hemoglobin 0.9 Oxyhemoglobin 96.7 Carboxyhemoglobin 1.7 H Total Hemoglobin 10.7 L Oxygen Liter Flow 4.00 Sodium 135.1 Potassium 3.74 Chloride 98.6 Carbon Dioxide 33.6 H Anion Gap 6.64 BUN 13.5 Creatinine 0.85 Estimated GFR (MDRD) 87.00 BUN/Creatinine Ratio 15.88 Glucose 106.4 H Calcium 8.83 Magnesium 2.01 Total Bilirubin 0.53 AST 28.9 ALT 14.9 Alkaline Phosphatase 77.7 Ammonia Troponin I < 0.012 NT-Pro-B Natriuret Pep Total Protein 6.89 Albumin 3.78 Globulin 3.11 Albumin/Globulin Ratio 1.21 TSH D-Dimer 649.47 H SARS CoV-2 RNA Rapid KENJI Negative 01/15/24 01/15/24 01/16/24 21:11 Unknown 05:08 WBC 8.58 D RBC 3.69 L Hgb 10.5 L Hct 33.2 L MCV 90.0 MCH 28.5 MCHC 31.6 L RDW Coeff of Terry 14.1 Plt Count 413 Immature Gran % (Auto) 0.7 Neut % (Auto) 87.7 H Lymph % (Auto) 10.7 [place] % (Auto) 0.8 Eos % (Auto) 0.0 Baso % (Auto) 0.1 Neut # (Auto) 7.5 H Lymph # (Auto) 0.9 [place] # (Auto) 0.1 L Eos # (Auto) 0.0 Baso # (Auto) 0.0 Immature Gran # (Auto) 0.1 PT INR APTT Puncture Site Base Excess O2 Saturation ABG pH ABG pCO2 ABG pO2 ABG HCO3 ABG Total CO2 Mook Test Hemoglobin Oxyhemoglobin Carboxyhemoglobin Total Hemoglobin Oxygen Liter Flow Sodium 134.2 L Potassium 3.54 Chloride 95.3 L Carbon Dioxide 33.4 H Anion Gap 9.04 BUN 13.8 Creatinine 0.96 Estimated GFR (MDRD) 75.00 BUN/Creatinine Ratio 14.37 Glucose 179.1 H D Calcium 8.86 Magnesium Total Bilirubin 0.52 AST 21.7 ALT 14.9 Alkaline Phosphatase 84.8 Ammonia 10.4 Troponin I NT-Pro-B Natriuret Pep 215 Total Protein 7.06 Albumin 3.86 Globulin 3.20 Albumin/Globulin Ratio 1.20 TSH 0.078 L D-Dimer SARS CoV-2 RNA Rapid KENJI Imaging Imaging: EXAM: SINGLE AP VIEW OF THE CHEST HISTORY: Dyspnea. Shortness of breath. COMPARISON: 09/14/2023. FINDINGS: There is bibasilar atelectasis.There is no focal consolidation or large pleural effusion. The trachea is midline. The cardiomediastinal silhouette is within the normal limits. The osseous structures are intact. IMPRESSION: 1. Bibasilar atelectasis. 2. No focal consolidation, large pleural effusion, or discernible pneumothorax. Review Statement Review Statement: I have independently reviewed and interpreted the labs/EKGs/imaging that were ordered by the ER provider. I have reviewed all outside records that are available currently in our EMR including imaging/notes/labs from previous visits . Plan Plan: 1. Acute HFpEF exacerbation - Last echo in 08/10 had normal EF. Cont lasix q8hrs, I&O, daily weights, cardiac diet, spironolactone, fluid restrict, replace K+ as needed. 2. COPD - Doesn't appear to be acute exacerbated, cont home regimen 3. Hypertension - Cont home meds 4. Hyperlipidemia - Cont home meds 5. BPH - Cont home meds 6. Anxiety/depression - Cont home meds DVT Prophylaxis: Lovenox Time Spent: Greater than 80 minutes spent with patient, 50% of the time spent with this patient was devoted to counseling and coordination of care. [facility]in minutes spent discussing advance care planning. Admit to: Inpatient, flipped today Discussed Plan of Care with Dr. Toni Rosales. Medications Medication Orders: Medications Ordered Category Date Time Status 0.9 % Sodium Chloride [Saline Flush] Meds 01/15/24 20:27 Active 1 syr IVF PRN PRN Acetaminophen [Tylenol] Meds 01/15/24 22:14 Active 650 mg PO Q4H PRN Budesonide/Formoterol Fumarate [Symbicort 160-4.5 Mcg Meds 01/16/24 09:00 Active Inhaler] 2 puff IH BID Bupropion HCl [Wellbutrin Xl] Meds 01/16/24 09:00 Active 300 mg PO QAM Docusate Sodium [Colace] Meds 01/15/24 22:17 Active 200 mg PO BID PRN Furosemide [Lasix] Meds 01/16/24 04:00 Active 40 mg IVP Q8HR Gabapentin [Neurontin] Meds 01/16/24 09:00 Active 200 mg PO BID Ipratropium/Albuterol Neb [Duoneb] Meds 01/15/24 22:19 Active 3 ml NEB RTQ6H PRN Ondansetron HCl/Pf [Zofran 4 mg/2 ml] Meds 01/15/24 22:14 Active 4 mg IVP Q6H PRN Propranolol HCl [Inderal] Meds 01/15/24 22:30 Active 20 mg PO BID Spironolactone [Aldactone] Meds 01/16/24 09:00 Active 25 mg PO DAILY Tamsulosin HCl [Flomax] Meds 01/16/24 21:00 Active 0.4 mg PO BEDTIME vitamin B complex [B Complex-Vitamin B12] Meds 01/16/24 09:00 Active 2 tab PO DAILY
[2024-01-16] MEDS: LOVENOX SUBCUT SCH (13:26)
[2024-01-16] MEDS: SPIRIVA IH SCH ×2 (15:24→15:25)
[2024-01-16] MEDS: FLOMAX PO SCH (20:10)
[2024-01-17 05:41] LABS: HEMATOCRIT 32.1 % (42.0-52.0); HEMOGLOBIN 10.1 g/dl (14.0-18.0); MEAN CORPUSCULAR HEMOGLOBIN 28.3 pg (27.0-31.0); MEAN CORPUSCULAR HGB CONC 31.5 (31.8-35.4); MEAN CORPUSCULAR VOLUME 89.9 fl (80.0-94.0); PLATELET COUNT 395 10^3/uL (140-440); RDW COEFFICIENT OF VARIATION 14.1 % (11.6-14.8); RED BLOOD COUNT 3.57 10^6/ul (4.70-6.10)
[2024-01-17 05:46] LABS: WHITE BLOOD COUNT 22.26 K/ul (4.2-10.2)
[2024-01-17 05:47] LABS: ANISOCYTOSIS NOT PRESENT (NOT PRESENT)
[2024-01-17 05:52] LABS: ALANINE AMINOTRANSFERASE 12.5 U/L (0-50); ALBUMIN 3.65 g/dL (3.5-5.0); ALKALINE PHOSPHATASE 73.6 U/L (56-119); ASPARTATE AMINO TRANSFERASE 22.6 U/L (17-59); BILIRUBIN,TOTAL 0.36 mg/dL (0.2-1.3); CALCIUM 9.16 mg/dL (8.4-10.2); CARBON DIOXIDE 37.8 mmol/L (22-30.0); CHLORIDE 94.7 mmol/L (98-107); CREATININE 1.17 mg/dL (0.60-1.10); GLUCOSE 117.4 mg/dL (74-106); POTASSIUM 3.38 mmol/L (3.5-5.1); SODIUM 135.5 mmol/L (134.5-145); TOTAL PROTEIN 6.75 g/dL (6.3-8.2)
[2024-01-17] MEDS: K-DUR PO ONE (08:54)
--- NOTE | 2024-01-17 09:41 | PCM.PROG ---
Date/Time Seen Date Seen by Provider: 01/17/24 Time Seen by Provider: 08:30 Provider Provider: BERANBE ENCARNACION PA-C, [facility] Chief Complaint Chief Complaint: COPD, CHF EXACERBATION, DYSPNIA Subjective Subjective: Patient sitting at the bedside this morning. Conversational. Thinks his swelling is some better, but thinks it could be improved. WBC 22 today. Pt has chronic leukocytosis. Objective Appearance: Positive No Apparent Distress and Alert and Oriented x3 Chest/Lungs: Positive Symmetrical With Equal Breath Sounds; Negative Rales, Rhonci or Wheezes Heart: Positive RRR GI/: Positive Soft, Nontender, Bowel Sounds Normal and No Distention Neurological: Positive Cranial Nerves Intact, Alert, Oriented and Other (+generalized weakness ) Vital Signs Vital Signs: Vital Signs: Last 24 Hours 01/16/24 10:00 01/16/24 10:00 01/16/24 10:00 Temperature 98.1 F Temperature Source Temporal Artery Scan Pulse Rate 91 Respiratory Rate 18 Blood Pressure 129/80 Blood Pressure Mean 96 Blood Pressure Location Right Arm Blood Pressure Position O2 Sat by Pulse Oximetry 95 Oxygen Delivery Method Nasal Cannula Nasal Cannula Nasal Cannula Oxygen Flow Rate 2 2 Weight Telemetry Type Telemetry Monitoring Telemetry Heart Rate Telemetry SPO2 EKG NC Interval EKG QRS Interval Telemetry Strip Reading 01/16/24 10:57 01/16/24 11:59 01/16/24 13:00 Temperature Temperature Source Pulse Rate Respiratory Rate Blood Pressure Blood Pressure Mean Blood Pressure Location Blood Pressure Position O2 Sat by Pulse Oximetry Oxygen Delivery Method Nasal Cannula Nasal Cannula Nasal Cannula Oxygen Flow Rate Weight Telemetry Type Telemetry Monitoring Telemetry Heart Rate Telemetry SPO2 EKG NC Interval EKG QRS Interval Telemetry Strip Reading 01/16/24 13:00 01/16/24 14:00 01/16/24 14:00 Temperature Temperature Source Pulse Rate Respiratory Rate Blood Pressure Blood Pressure Mean Blood Pressure Location Blood Pressure Position O2 Sat by Pulse Oximetry Oxygen Delivery Method Nasal Cannula Nasal Cannula Oxygen Flow Rate 2 Weight Telemetry Type Remote Telemetry Telemetry Monitoring Continues Telemetry Heart Rate 75 Telemetry SPO2 95 EKG NC Interval 0.20 EKG QRS Interval 0.07 Telemetry Strip Reading SR 01/16/24 14:00 01/16/24 15:00 01/16/24 15:52 Temperature 98.2 F Temperature Source Temporal Artery Scan Pulse Rate 72 Respiratory Rate 16 Blood Pressure 142/86 H Blood Pressure Mean 104 Blood Pressure Location Right Arm Blood Pressure Position Supine O2 Sat by Pulse Oximetry 94 L Oxygen Delivery Method Nasal Cannula Nasal Cannula Nasal Cannula Oxygen Flow Rate 2 Weight Telemetry Type Telemetry Monitoring Telemetry Heart Rate Telemetry SPO2 EKG NC Interval EKG QRS Interval Telemetry Strip Reading 01/16/24 17:00 01/16/24 17:52 01/16/24 18:00 Temperature 97.7 F Temperature Source Temporal Artery Scan Pulse Rate 66 Respiratory Rate 18 Blood Pressure 133/75 Blood Pressure Mean 94 Blood Pressure Location Right Arm Blood Pressure Position O2 Sat by Pulse Oximetry 95 Oxygen Delivery Method Nasal Cannula Nasal Cannula Nasal Cannula Oxygen Flow Rate 2 Weight Telemetry Type Telemetry Monitoring Telemetry Heart Rate Telemetry SPO2 EKG NC Interval EKG QRS Interval Telemetry Strip Reading 01/16/24 19:00 01/16/24 19:00 01/16/24 20:00 Temperature Temperature Source Pulse Rate Respiratory Rate Blood Pressure Blood Pressure Mean Blood Pressure Location Blood Pressure Position O2 Sat by Pulse Oximetry Oxygen Delivery Method Nasal Cannula Nasal Cannula Oxygen Flow Rate 2 Weight Telemetry Type Remote Telemetry Telemetry Monitoring Continues Telemetry Heart Rate 61 Telemetry SPO2 96 EKG NC Interval 0.19 EKG QRS Interval 0.07 Telemetry Strip Reading SR 01/16/24 20:00 01/16/24 20:09 01/17/24 01:00 Temperature 97.4 F L Temperature Source Temporal Artery Scan Pulse Rate 66 Respiratory Rate 20 20 Blood Pressure 148/83 H Blood Pressure Mean 104 Blood Pressure Location Right Arm Blood Pressure Position Supine O2 Sat by Pulse Oximetry 93 L Oxygen Delivery Method Nasal Cannula Nasal Cannula Oxygen Flow Rate 2 2 Weight Telemetry Type Remote Telemetry Telemetry Monitoring Continues Telemetry Heart Rate 53 L Telemetry SPO2 96 EKG NC Interval 0.20 EKG QRS Interval 0.10 Telemetry Strip Reading SB 01/17/24 01:50 01/17/24 05:19 01/17/24 05:20 Temperature 97.2 F L 97.3 F L Temperature Source Temporal Artery Scan Temporal Artery Scan Pulse Rate 59 L 61 Respiratory Rate 20 Blood Pressure 137/72 111/72 Blood Pressure Mean 93 85 Blood Pressure Location Left Arm Left Arm Blood Pressure Position Supine Supine O2 Sat by Pulse Oximetry 95 96 Oxygen Delivery Method Nasal Cannula Nasal Cannula Oxygen Flow Rate 2 2 Weight 178 lb 5 oz Telemetry Type Telemetry Monitoring Telemetry Heart Rate Telemetry SPO2 EKG NC Interval EKG QRS Interval Telemetry Strip Reading 01/17/24 05:42 01/17/24 07:00 Temperature Temperature Source Pulse Rate Respiratory Rate Blood Pressure Blood Pressure Mean Blood Pressure Location Blood Pressure Position O2 Sat by Pulse Oximetry Oxygen Delivery Method Nasal Cannula Oxygen Flow Rate 2 Weight Telemetry Type Remote Telemetry Telemetry Monitoring Continues Telemetry Heart Rate 57 L Telemetry SPO2 97 EKG NC Interval 0.17 EKG QRS Interval 0.09 Telemetry Strip Reading Bradycardia Lab Results Lab Results: Lab Results: Last 24 Hours 01/17/24 05:30 WBC 22.26 H D RBC 3.57 L Hgb 10.1 L Hct 32.1 L MCV 89.9 MCH 28.3 MCHC 31.5 L RDW Coeff of Terry 14.1 Plt Count 395 Neutrophils % (Manual) 75.0 Lymphocytes % (Manual) 15.0 Monocytes % (Manual) 10.0 Anisocytosis Not present Sodium 135.5 Potassium 3.38 L Chloride 94.7 L Carbon Dioxide 37.8 H Anion Gap 6.38 BUN 23.0 H Creatinine 1.17 H Estimated GFR (MDRD) 60.00 BUN/Creatinine Ratio 19.65 Glucose 117.4 H Calcium 9.16 Total Bilirubin 0.36 AST 22.6 ALT 12.5 Alkaline Phosphatase 73.6 Total Protein 6.75 Albumin 3.65 Globulin 3.10 Albumin/Globulin Ratio 1.17 Free T4 2.06 Additional Comments Additional Comments: I have independently reviewed and interpreted the labs/EKGs/imaging ordered during this hospital stay. I have reviewed outside records that are available in our EMR that pertain to medical stay including imaging/notes/labs from previous visits. Active Medications Active Medications: Medications Generic Name Dose Route Start Last Admin Trade Name Freq PRN Reason Stop Dose Admin Acetaminophen 650 mg 01/15/24 22:14 Acetaminophen 325 Mg Tablet PO Q4H PRN Mild Pain Albuterol/Ipratropium 3 ml 01/15/24 22:19 01/16/24 00:18 Ipratropium/Albuterol Vial.Neb NEB 3 ml RTQ6H PRN Administration Wheezing Budesonide/Formoterol Fumarate 2 puff 01/16/24 09:00 01/17/24 08:34 Budesonide/Formoterol Fumarate 160/4.5 Mcg Inhaler IH 2 puff BID TIMOTHY Administration Bupropion HCl 300 mg 01/16/24 09:00 01/17/24 08:30 Bupropion Hcl 150 Mg Tab.Er.24h PO 300 mg QAM TIMOTHY Administration Docusate Sodium 200 mg 01/15/24 22:17 Docusate Sodium 100 Mg Capsule PO BID PRN Constipation Enoxaparin Sodium 40 mg 01/16/24 11:00 01/17/24 08:34 Enoxaparin Sodium 40 Mg/0.4 Ml Syr SUBCUT 40 mg DAILY TIMOTHY Administration Gabapentin 200 mg 01/16/24 09:00 01/17/24 08:32 Gabapentin 100 Mg Capsule PO 200 mg BID TIMOTHY Administration Non-Formulary Medication 2 tab 01/16/24 09:00 01/16/24 08:49 Vitamin B Complex [B Complex-Vitamin B12] PO Not Given DAILY TIMOTHY Ondansetron HCl 4 mg 01/15/24 22:14 Ondansetron Hcl/Pf 4 Mg/2 Ml Sdv IVP Q6H PRN Nausea / Vomiting Propranolol HCl 20 mg 01/15/24 22:30 01/17/24 08:32 Propranolol Hcl 20 Mg Tablet PO 20 mg BID TIMOTHY Administration Sodium Chloride 1 syr 01/16/24 21:00 01/17/24 05:21 0.9% Sodium Chloride 10 Ml Disp.Syrin IVF 1 syr Q8H TIMOTHY Administration Spironolactone 25 mg 01/16/24 09:00 01/17/24 08:31 Spironolactone 25 Mg Tablet PO 25 mg DAILY TIMOTHY Administration Tamsulosin HCl 0.4 mg 01/16/24 21:00 01/16/24 20:10 Tamsulosin Hcl 0.4 Mg Cap.Er.24h PO 0.4 mg BEDTIME TIMOTHY Administration Tiotropium [place] 1 cap 01/16/24 15:30 01/17/24 08:33 Tiotropium [place] 18 Mcg Cap.W.Dev IH 1 cap DAILY TIMOTHY Administration Plan Plan: 1. Acute HFpEF exacerbation - Last echo in 08/10 had normal EF. Decrease lasix to q12hrs, I&O, daily weights, cardiac diet, spironolactone, fluid restrict, replace K+ as needed. 2. COPD - Doesn't appear to be acutely exacerbated, cont home regimen 3. Hypertension - Cont home meds 4. Hyperlipidemia - Cont home meds 5. BPH - Cont home meds 6. Anxiety/depression - Cont home meds 7. Chronic leukocytosis - pt saw Jasmin Robbins [facility] SCHOLAR heme/onc at [facility] 08/10 and she initiated work up. No visit notes since. Will discuss w/ granddaughter. 8. Low TSH - T4 normal, awaiting T3. DVT Prophylaxis: Lovenox Dispo: Likely dc tomorrow, will attempt to get some more fluid off prior to dc. Review Statement Review Statement: I have personally discussed and reviewed the patient's visit/currently labs/lelia ging/decision making with Dr. Aguila, my supervising attending. Greater that 50 minutes spent with patient, 50% of the time spent with this patient was devoted to counseling and coordination of care.
[2024-01-17] MEDS: LASIX TAB PO ONE (17:28)
[2024-01-17] MEDS: COLACE PO PRN (20:08)
[2024-01-18] MEDS: BENADRYL PO ONE (01:19)
[2024-01-18 07:17] LABS: BASOPHILS % (AUTO) 0.2 % (0.0-3.0); EOSINOPHILS # (AUTO) 0.5 K/ul (0.0-0.7); EOSINOPHILS % (AUTO) 3.1 % (0.0-7.0); HEMATOCRIT 33.6 % (42.0-52.0); HEMOGLOBIN 10.3 g/dl (14.0-18.0); IMMATURE GRANULOCYTE # (AUTO) 0.1 (0.0-1.0); IMMATURE GRANULOCYTE % (AUTO) 0.8 % (0.0-5.0); LYMPHOCYTES % (AUTO) 18.4 (10.0-50.0); MEAN CORPUSCULAR HEMOGLOBIN 28.2 pg (27.0-31.0); MEAN CORPUSCULAR HGB CONC 30.7 (31.8-35.4); MEAN CORPUSCULAR VOLUME 92.1 fl (80.0-94.0); MONOCYTES # (AUTO) 1.7 K/uL (0.4-2.0); NEUTROPHILS # (AUTO) 11.2 K/ul (2.0-6.9); NEUTROPHILS % (AUTO) 67.5 % (42.2-75.2); PLATELET COUNT 396 10^3/uL (140-440); RDW COEFFICIENT OF VARIATION 14.1 % (11.6-14.8); RED BLOOD COUNT 3.65 10^6/ul (4.70-6.10); WHITE BLOOD COUNT 16.52 K/ul (4.2-10.2)
[2024-01-18 07:29] LABS: ALANINE AMINOTRANSFERASE 11.3 U/L (0-50); ALBUMIN 3.75 g/dL (3.5-5.0); ALKALINE PHOSPHATASE 75.2 U/L (56-119); BILIRUBIN,TOTAL 0.52 mg/dL (0.2-1.3); BLOOD UREA NITROGEN 26.9 mg/dL (9-20); CARBON DIOXIDE 39.4 mmol/L (22-30.0); CHLORIDE 95.2 mmol/L (98-107); CREATININE 1.16 mg/dL (0.60-1.10); GLUCOSE 99.2 mg/dL (74-106); POTASSIUM 3.97 mmol/L (3.5-5.1); SODIUM 137.1 mmol/L (134.5-145); TOTAL PROTEIN 6.74 g/dL (6.3-8.2)
--- NOTE | 2024-01-18 09:55 | DCSUM ---
Admission Date Admission Date: 01/15/24 Discharge Date Discharge Date: 01/18/24 Admission Diagnosis Admission Diagnosis: 1. Acute HFpEF exacerbation Discharge Diagnosis Discharge Diagnosis: 1. Acute HFpEF exacerbation - improved 2. Chronic respiratory failure due to COPD 3. Hypertension - Cont home meds 4. Hyperlipidemia - Cont home meds 5. BPH - Cont home meds 6. Anxiety/depression - Cont home meds 7. Chronic leukocytosis - heme/onc f/u 8. Low TSH - T4 normal, awaiting T3. Hospital Provider Hospital Provider: BERNABE ENCARNACION PA-C, [facility] Primary Care Physician Primary Care Physician: LV ROSALES MD Summary of History and Physical Summary of History and Physical: Patient is a 78 year old male with pmhx of HFpEF, COPD with chronic respiratory failure at 3L, depression, AAA, hyperlipidemia, hypertension, who presents to ER with worsening edema and sob over the last several days. Patient normally takes lasix and spironolactone. He has limited ambulation ability but has been more SOB with exertion lately as well. He is on his baseline 3L. In ER CXR negative for acute findings but noted to have pitting edema to abdomen. Pt was given lasix, duoneb, steroids, levaquin. Admitted to med surg. Pt lives at home with granddaughter, who is a [employer]. Upon my evaluation today, he is feeling some better and thinks his swelling has improved. Hospital Course Subjective: Patient was treated with IV lasix and transitioned to PO. He diuresed about 4.5L and is down 6 lbs. Edema much improved. He has remained on baseline O2 requirement. Has some exertional dyspnea but is deconditioned at baseline. Discussed plan of care with granddaughter, who lives with patient and is an [employer]. Discussed adding lasix 20 mg prn for swelling and weight gain upon discharge. If needing to give often, f/u closely with pcp/cardiology. Discussed his chronic le ukocytosis, pt has been unable to f/u with heme/onc since Jul due to multiple reasons. Encouraged f/u. Also of note, TSH very low. Free T4 normal. Free T3 still pending. F/u outpatient. Will discharge to home today. Continue home health. Pt and granddaughter agree to plan of care. Appearance: Pleasant, No Apparent Distress and Alert HEENT: MMM CVS: No Murmur Abdomen: Soft, Non-Tender and No Distention Respiratory: Other (+diminished jesu, no crackles, wheezing. ) Extremities: Other (1+ pitting edema jesu lower ext, improved ) Vital Signs: Most Recent Vital Signs Temperature 97.4 F L 01/18/24 05:07 Temperature Source Temporal Artery Scan 01/18/24 05:07 Temperature Source Oral 01/15/24 20:02 Pulse Rate 58 L 01/18/24 05:07 Respiratory Rate 18 01/18/24 05:07 Blood Pressure 91/50 L 01/18/24 05:07 Blood Pressure Mean 63 01/18/24 05:07 Blood Pressure Left Arm 135/89 01/15/24 22:39 Blood Pressure Location Right Arm 01/18/24 05:07 Blood Pressure Position Supine 01/18/24 05:07 O2 Sat by Pulse Oximetry 96 01/18/24 06:00 Oxygen Delivery Method Nasal Cannula 01/18/24 08:00 Oxygen Flow Rate 2 01/18/24 08:00 Height 5 ft 10 in 01/15/24 22:39 Weight 178 lb 6.4 oz 01/18/24 05:08 Telemetry Type Remote Telemetry 01/18/24 07:00 Telemetry Monitoring Continues 01/18/24 07:00 Telemetry Heart Rate 67 01/18/24 07:00 Telemetry SPO2 94 01/18/24 07:00 EKG AR Interval 0.17 01/18/24 07:00 EKG QRS Interval 0.07 01/18/24 07:00 Telemetry Strip Reading SR 01/18/24 07:00 Imaging: EXAM: SINGLE AP VIEW OF THE CHEST HISTORY: Dyspnea. Shortness of breath. COMPARISON: 09/14/2023. FINDINGS: There is bibasilar atelectasis.There is no focal consolidation or large pleural effusion. The trachea is midline. The cardiomediastinal silhouette is within the normal limits. The osseous structures are intact. IMPRESSION: 1. Bibasilar atelectasis. 2. No focal consolidation, large pleural effusion, or discernible pneumothorax. Lab Results Last 24 Hours: 01/18/24 07:11 WBC 16.52 H D RBC 3.65 L Hgb 10.3 L Hct 33.6 L MCV 92.1 MCH 28.2 MCHC 30.7 L RDW Coeff of Terry 14.1 Plt Count 396 Immature Gran % (Auto) 0.8 Neut % (Auto) 67.5 Lymph % (Auto) 18.4 [place] % (Auto) 10.0 Eos % (Auto) 3.1 Baso % (Auto) 0.2 Neut # (Auto) 11.2 H Lymph # (Auto) 3.0 [place] # (Auto) 1.7 Eos # (Auto) 0.5 Baso # (Auto) 0.0 Immature Gran # (Auto) 0.1 Sodium 137.1 Potassium 3.97 Chloride 95.2 L Carbon Dioxide 39.4 H Anion Gap 6.47 BUN 26.9 H Creatinine 1.16 H Estimated GFR (MDRD) 61.00 BUN/Creatinine Ratio 23.18 Glucose 99.2 Calcium 9.00 Total Bilirubin 0.52 AST 23.0 ALT 11.3 Alkaline Phosphatase 75.2 Total Protein 6.74 Albumin 3.75 Globulin 2.99 Albumin/Globulin Ratio 1.25 Discharge Instructions Discharge Planning: Discharge Planning > [address] Toni Rosales. Discharge Medications: Medications at Discharge (Home Meds & RX) Discharge Plan Discharge Discharge Orders: Discharge Patient (ONCE); Ordered 01/18/24 Ordered By: BERNABE ENCARNACION Activity Restrictions/Additional Instructions: DISCHARGE TO HOME CONTINUE HOME HEALTH DIET: LOW SODIUM ACTIVITY: TOLERATED, KEEP LEGS ELEVATED PRN LASIX ADDED F/U WITH HEME/ONC FOR CHRONIC LEUKOCYTOSIS F/U WITH PCP REGARDING THYROID STUDIES (T3 STILL PENDING) Instructions: Heart Failure (GEN) Patient Disposition: HOME WITH FAMILY CARE Prescriptions: New furosemide [Lasix] 20 mg tablet 20 mg PO DAILY PRN (Reason: SWELLING) Qty: 20 0RF Rx Instructions: FOR WORSENING SWELLING OR WEIGHT GAIN Continued spironolactone 25 mg tablet 25 mg PO DAILY Qty: 90 1RF furosemide 40 mg tablet 40 mg PO DAILY Qty: 90 1RF propranolol 20 mg tablet See Rx Instructions .ROUTE .COMPLEX Qty: 180 1RF Dose Instruction: TAKE ONE TABLET BY MOUTH TWICE A DAY Rx Instructions: TAKE ONE TABLET BY MOUTH TWICE A DAY montelukast 10 mg tablet 10 mg PO BEDTIME acetaminophen 325 mg tablet 650 mg PO Q4-6H PRN (Reason: Elevated temp or mild pain) albuterol sulfate 2.5 mg /3 mL (0.083 %) solution for nebulization 2.5 mg inhalation Q4H PRN (Reason: shortness of breath or wheezing) cholecalciferol (vitamin D3) 25 mcg (1,000 unit) capsule 25 mcg PO DAILY Patient Comments: Take 5 tablets by mouth daily. guaifenesin 600 mg tablet extended release 12hr 1,200 mg PO Q12H PRN (Reason: congestion) Multiple Vitamin-Minerals Tablet 1 tab PO DAILY ascorbic acid (vitamin C) 1,000 mg tablet 500 mg PO DAILY cetirizine [24Hour Allergy] 10 mg tablet 10 mg PO DAILY docusate sodium [Colace] 100 mg capsule 200 mg PO BID PRN (Reason: constipation) vitamin B complex [B Complex-Vitamin B12] Tablet 2 tab PO DAILY Trelegy Ellipta 200-62.5-25 mcg blister with device 1 inh inhalation DAILY magnesium 200 mg tablet 30 mg PO DAILY omeprazole 20 mg capsule,delayed release(DR/EC) 20 mg PO BID potassium chloride 10 mEq tablet,ER particles/crystals 20 meq PO DAILY budesonide [Pulmicort] 1 mg/2 mL suspension for nebulization 1 mg inhalation BEDTIME PRN (Reason: shortness of air) pravastatin 40 mg tablet 40 mg PO BEDTIME gabapentin 100 mg capsule 200 mg PO BID tamsulosin 0.4 mg capsule See Rx Instructions .ROUTE .COMPLEX Rx Instructions: TAKE 1 CAPSULE bedtime albuterol sulfate [ProAir HFA] 200 PUFF/8.5 GM HFA aerosol inhaler 2 puff inhalation Q4H PRN (Reason: Shortness of air) bupropion HCl [Wellbutrin XL] 300 mg tablet extended release 24 hr 300 mg PO QAM Did you review [place] [employer] for ALL controlled substances?: Not Applicable Discussed opioids are addictive and Narcan is available by prescription or from pharmacy.: No Condition: Stable
[2024-01-18 10:00] VITALS: BP 120/74; PULSE 74; RESP 16; TEMP 97.6
== END 2024-01-18 15:00 | disposition home or self-care (01) | DRG 292 ==
LOC: ED 20:01 → MEDSURG B 20:01
PROVIDERS: ADMIT Hospitalist; ATTEND Physician Assistant

== ENCOUNTER 2024-02-24 15:22 | Inpatient (IN) ==
--- NOTE | 2024-02-24 16:06 | ED.PDOC ---
General ED Provider: Dr. CHANDNI GUTIÉRREZ MD Chief Complaint: Extremity Swelling/Pain Stated Complaint: Patient history of congestive heart failure, COPD, hypertension, dependent edema, uses home oxygen 3 L daily complains of increasing dependent edema the past week. Weight gain of 13 pounds. Patient states his oral Lasix along effective. Patient seen primary care provider for emergency hospitalization. Patient denies chest pain, coughing, fever, chills, diaphoresis, palpitations. Time Seen by Provider: 02/24/24 15:55 Mode of Arrival: Wheelchair Information Source: Patient and Family Exam Limitations: Clinical condition Primary Care Provider: LV AGUILA MD Nursing and Triage Documentation Reviewed and Agree: Yes What is Opioid Naive?: *Opioid Naive implies the patient is not already taking opioids or not chronically receiving opioids on a daily basis. *PRN dosing is not "usually" associated with tolerance. *Patients are at higher risk of over-sedation and aspiration. What is Opioid Tolerant?: *Opioid Tolerance implies less than the expected response to an opioid. *Acquired tolerance is defined by the patient taking 60mg of oral morphine daily (or equianalgesic dose of another opioid) for 1 week or more. *Often associated with chronic pain. *May take more than usual dose to achieve desired pain control. Review of Systems Review Of Systems Constitutional: Reports No symptoms Eyes: Reports No symptoms Ears, Nose, Mouth, Throat: Reports No symptoms Respiratory: Reports Shortness of Breath Cardiac: Reports Edema (Increasing lower extremity edema weight gain 13 pounds) GI: Reports No symptoms : Reports No symptoms Musculoskeletal: Reports No symptoms Endocrine: Reports No symptoms Hematologic/Lymphatic: Reports No symptoms [facility] Medical History Acute exacerbation of chronic obstructive pulmonary disease J44.1 - Chronic obstructive pulmonary disease with (acute) exacerbation (ICD-10) Pneumonia due to 2019 novel coronavirus U07.1 - COVID-19 (ICD-10) J12.82 - Pneumonia due to coronavirus disease 2019 (ICD-10) Encounter for Medicare annual wellness exam Z00.00 - Encounter for general adult medical examination without abnormal findings (ICD-10) History of COVID-19 07/10 took paxlovid Z86.16 - Personal history of COVID-19 (ICD-10) Pneumonia J18.9 - Pneumonia, unspecified organism (ICD-10) COPD (chronic obstructive pulmonary disease) J44.9 - Chronic obstructive pulmonary disease, unspecified (ICD-10) Pneumonia J18.9 - Pneumonia, unspecified organism (ICD-10) Influenza A J10.1 - FLU DUE TO OTH IDENT INFLUENZA VIRUS W OTH RESP MANIFEST (ICD-10) Left lower lobe pneumonia J18.9 - PNEUMONIA, UNSPECIFIED ORGANISM (ICD-10) Family History Mother No problems noted. FATHER No problems noted. Other No known health problems Social History (Updated 02/24/24 @ 14:19 by CECIL HAWLEY) Smoking and tobacco status: Former smoker Tobacco: How many years used: 50 How long ago did patient quit smoking: quit 3 years ago Alcohol intake: never Substance use type: does not use Special aminata needs: No Agree to transfusion: Yes Adopted: No Caregiver/support person: No Foster care: No Household members: children Housing: house Marital status: W / Daycare: no daycare Number of children: 2 service: Yes senior living: No Current occupational status: retired History of recent travel: No Do you think of yourself as: straight/heterosexual Current gender identity: male Seatbelt use: always Drives intoxicated or rides with intoxicated entry driver operator: No Water heater temperature set < 120 degrees: Yes Working smoke detector in home: Yes Fire extinguisher in home: Yes Carbon monoxide detector in home: Yes Physical Exam Physical Exam Appearance: Reports Well-appearing Ill-appearing: None Pain Distress: None Eyes: Reports MARIELOS, EOMI and Conjunctiva clear ENT: Reports Ears normal and Nose normal Neck: Supple (There is minimal JVD at angle of mandible 45 degrees.) Respiratory: Reports Airway patent, Breath sounds clear and Breath sounds equal (There is no wheezes on rhonchi or rales noted.) Cardiovascular: Reports RRR, Pulses normal, No rub and Bradycardia GI/: Reports Soft, Nontender, No masses, Bowel sounds normal and No Organomegaly Musculoskeletal: Reports Normal strength, ROM intact and Edema (There is 3+ edema from the ankles to the mid swann and 2+ mid swann to the knees. There is +1 presacral edema noted.) Skin: Reports Warm and Dry Neurological: Reports Sensation intact, Motor intact and Reflexes intact Psychiatric: Reports Affect appropriate and Mood appropriate Physician Notification Case Discussed Physician Notified: Discussed with Dr. Aguila Time of Notification: 19:35 Comments: Discussion of the patient's clinical findings laboratory data recommendations for admit to the hospitalist service Critical Care Note Critical Care Note Total Critical Care Time (mins): 10 Course Course 02/24/24 16:20 02/24/24 16:20 Orders, Labs, Meds: Lab Review 02/24/24 02/24/24 02/24/24 16:20 16:52 19:00 WBC 12.75 H RBC 3.80 L Hgb 10.6 L Hct 35.1 L MCV 92.4 MCH 27.9 MCHC 30.2 L RDW Coeff of Terry 14.9 H Plt Count 411 Immature Gran % (Auto) 0.3 Neut % (Auto) 63.8 Lymph % (Auto) 23.7 [place] % (Auto) 9.6 Eos % (Auto) 2.2 Baso % (Auto) 0.4 Neut # (Auto) 8.1 H Lymph # (Auto) 3.0 [place] # (Auto) 1.2 Eos # (Auto) 0.3 Baso # (Auto) 0.1 Immature Gran # (Auto) 0.0 PT 9.9 INR 0.95 VBG pH 7.43 H VBG pCO2 54 H VBG pO2 35 L VBG HCO3 35.8 H VBG O2 Saturation 69.3 Sodium 136.7 Potassium 3.85 Chloride 97.4 L Carbon Dioxide 32.9 H Anion Gap 10.25 BUN 18.6 Creatinine 1.20 H Estimated GFR (MDRD) 58.00 BUN/Creatinine Ratio 15.50 Glucose 115.4 H Calcium 9.31 Total Bilirubin 0.48 AST 22.1 ALT 13.1 Alkaline Phosphatase 90.0 Troponin I < 0.012 NT-Pro-B Natriuret Pep 66 Total Protein 7.46 Albumin 4.43 Globulin 3.03 Albumin/Globulin Ratio 1.46 D-Dimer 1004.09 H SARS CoV-2 RNA Rapid KENJI Negative Orders Category Date Time Status EKG-(ED ONLY) Stat CARDIO 02/24/24 16:41 Completed NPO REMINDER: IMAGING ONCE CARE 02/24/24 17:34 Active Silverware Cleaner [ED OUTSOLE CEMENTER MACHINE APPLIED] .ONCE EMERGENCY 02/24/24 16:41 Active Saline Lock [ED IV/MEDIPORT/POWERPORT] .ONCE EMERGENCY 02/24/24 16:06 Active CBC W/ AUTO DIFF Stat LAB 02/24/24 16:20 Completed CMP [COMPREHENSIVE METABOLIC PANEL] Stat LAB 02/24/24 16:20 Completed COVID [SARS COV-2 RNA RAPID KENJI] Stat LAB 02/24/24 16:52 Completed D-DIMER Stat LAB 02/24/24 16:20 Completed NT-PROBNP(ED) Stat LAB 02/24/24 16:20 Completed PT WITH INR Stat LAB 02/24/24 16:20 Completed TROPONIN I Stat LAB 02/24/24 16:20 Completed VENOUS BLOOD GAS Stat LAB 02/24/24 19:00 Completed 0.9 % Sodium Chloride [Saline Flush] Meds 02/24/24 16:06 Active 1 syr IVF PRN PRN Furosemide [Lasix] Meds 02/24/24 16:06 Discontinued 20 mg IVP ONCE STA CTA CHEST PE PROTOCOL Stat RADS 02/24/24 17:34 Completed Medications Generic Name Dose Route Start Last Admin Trade Name Freq PRN Reason Stop Dose Admin Sodium Chloride 1 syr 02/24/24 16:06 02/24/24 16:41 0.9% Sodium Chloride 10 Ml Disp.Syrin IVF 1 syr PRN PRN Administration To flush IV Discontinued Medications Generic Name Dose Route Start Last Admin Trade Name Freq PRN Reason Stop Dose Admin Furosemide 20 mg 02/24/24 16:06 02/24/24 16:41 Furosemide Inj 20 Mg/2 Ml Vial IVP 02/24/24 16:07 20 mg ONCE STA Administration Vital Signs: Temp Pulse Resp BP Pulse Ox 02/24/24 15:49 98.5 F 60 16 124/100 H 100 DAQUAN Risk Score DAQUAN Risk Score: Risk Score Odds of by 30D 0 0.1 (0.1-0.2) 1 0.3 (0.2-0.3) 2 0.4 (0.3-0.5) 3 0.7 (0.6-0.9) 4 1.2 (1.0-1.5) 5 2.2 (1.9-2.6) 6 3.0 (2.5-3.6) 7 4.8 (3.8-6.1) Physician Progress Note: History obtained from the patient close his family member with a history of leukocytosis, COPD, congestive heart failure, dependent edema, complains increasing weight gain of 13,000 past few weeks associated creasing smaller extremities. Patient states his Lasix no longer effective. Patient has home oxygen 3 L. Denies coughing, chest pain, diaphoresis, patient is having acute dyspnea. Patient given saline lock, Lasix 20 milligrams IV 1649-EKG interpretation by myself consistent with sinus bradycardia with nonspecific changes inferolaterally. There is no ectopy noted. There is no prolongation of MT QT interval. Laboratory data CBC CMP troponin are within normal limits set for white blood cell count 12,700. D-dimer 1004, BNP is 65. Patient history of leukocytosis. CTA of chest with intravenous contrast interpretation radiologist shows no evidence of pulmonary artery embolism there is no acute abnormality of the chest. There is emphysematous changes noted. The lungs show scattered fibrocalcific changes and scarring which are unchanged. Patient diuresed a total of 850 mL of urine Differential diagnosis: 1) right suggestive heart failure 2) dependent edema Discussed with Dr. Duane Aguila at 1935 for referral to the hospitalist service inpatient Discharge Plan Discharge Patient Disposition: ADMITTED INPATIENT Discharge Problem: Acute right-sided CHF (congestive heart failure) Prescriptions: No Action furosemide 40 mg tablet See Rx Instructions .ROUTE .COMPLEX Qty: 90 1RF Dose Instruction: TAKE 1 TABLET DAILY Rx Instructions: TAKE 1 TABLET DAILY propranolol 20 mg tablet See Rx Instructions .ROUTE .COMPLEX Qty: 180 1RF Dose Instruction: TAKE 1 TABLET TWICE A DAY Rx Instructions: TAKE 1 TABLET TWICE A DAY spironolactone 25 mg tablet See Rx Instructions .ROUTE .COMPLEX Qty: 90 1RF Dose Instruction: TAKE 1 TABLET DAILY Rx Instructions: TAKE 1 TABLET DAILY omeprazole 20 mg capsule,delayed release(DR/EC) See Rx Instructions .ROUTE .COMPLEX Qty: 180 1RF Dose Instruction: TAKE 1 CAPSULE TWICE A DAY Rx Instructions: TAKE 1 CAPSULE TWICE A DAY potassium chloride 10 mEq tablet,ER particles/crystals 20 meq PO DAILY Qty: 90 1RF albuterol sulfate [ProAir HFA] 90 mcg/actuation HFA aerosol inhaler 2 puff inhalation Q4H PRN (Reason: Shortness of air) Qty: 8.5 1RF triamcinolone acetonide 0.1 % cream 1 applic topical BID Qty: 80 1RF montelukast 10 mg tablet 10 mg PO BEDTIME acetaminophen 325 mg tablet 650 mg PO Q4-6H PRN (Reason: Elevated temp or mild pain) albuterol sulfate 2.5 mg /3 mL (0.083 %) solution for nebulization 2.5 mg inhalation Q4H PRN (Reason: shortness of breath or wheezing) cholecalciferol (vitamin D3) 25 mcg (1,000 unit) capsule 25 mcg PO DAILY Patient Comments: Take 5 tablets by mouth daily. guaifenesin 600 mg tablet extended release 12hr 1,200 mg PO Q12H PRN (Reason: congestion) Multiple Vitamin-Minerals Tablet 1 tab PO DAILY ascorbic acid (vitamin C) 1,000 mg tablet 500 mg PO DAILY cetirizine [24Hour Allergy] 10 mg tablet 10 mg PO DAILY docusate sodium [Colace] 100 mg capsule 200 mg PO BID PRN (Reason: constipation) vitamin B complex [B Complex-Vitamin B12] Tablet 2 tab PO DAILY Trelegy Ellipta 200-62.5-25 mcg blister with device 1 inh inhalation DAILY magnesium 200 mg tablet 30 mg PO DAILY budesonide [Pulmicort] 1 mg/2 mL suspension for nebulization 1 mg inhalation BEDTIME PRN (Reason: shortness of air) pravastatin 40 mg tablet 40 mg PO BEDTIME gabapentin 100 mg capsule 200 mg PO BID tamsulosin 0.4 mg capsule See Rx Instructions .ROUTE .COMPLEX Rx Instructions: TAKE 1 CAPSULE bedtime furosemide [Lasix] 20 mg tablet 20 mg PO DAILY PRN (Reason: SWELLING) Qty: 20 0RF Rx Instructions: FOR WORSENING SWELLING OR WEIGHT GAIN bupropion HCl [Wellbutrin XL] 300 mg tablet extended release 24 hr 300 mg PO QAM Did you review [place] AUDITOR APPRAISER for ALL controlled substances?: Not Applicable ED Provider: CHANDNI GUTIÉRREZ Condition: Stable
[2024-02-24 16:30] LABS: BASOPHILS # (AUTO) 0.1 K/uL (0-0.2); BASOPHILS % (AUTO) 0.4 % (0.0-3.0); EOSINOPHILS # (AUTO) 0.3 K/ul (0.0-0.7); EOSINOPHILS % (AUTO) 2.2 % (0.0-7.0); HEMATOCRIT 35.1 % (42.0-52.0); HEMOGLOBIN 10.6 g/dl (14.0-18.0); IMMATURE GRANULOCYTE % (AUTO) 0.3 % (0.0-5.0); LYMPHOCYTES % (AUTO) 23.7 (10.0-50.0); MEAN CORPUSCULAR HEMOGLOBIN 27.9 pg (27.0-31.0); MEAN CORPUSCULAR HGB CONC 30.2 (31.8-35.4); MEAN CORPUSCULAR VOLUME 92.4 fl (80.0-94.0); MONOCYTES # (AUTO) 1.2 K/uL (0.4-2.0); MONOCYTES % (AUTO) 9.6 (0-10); NEUTROPHILS # (AUTO) 8.1 K/ul (2.0-6.9); NEUTROPHILS % (AUTO) 63.8 % (42.2-75.2); PLATELET COUNT 411 10^3/uL (140-440); RDW COEFFICIENT OF VARIATION 14.9 % (11.6-14.8); WHITE BLOOD COUNT 12.75 K/ul (4.2-10.2)
[2024-02-24 16:41] LABS: ALANINE AMINOTRANSFERASE 13.1 U/L (0-50); ALBUMIN 4.43 g/dL (3.5-5.0); ASPARTATE AMINO TRANSFERASE 22.1 U/L (17-59); BILIRUBIN,TOTAL 0.48 mg/dL (0.2-1.3); BLOOD UREA NITROGEN 18.6 mg/dL (9-20); CALCIUM 9.31 mg/dL (8.4-10.2); CARBON DIOXIDE 32.9 mmol/L (22-30.0); CHLORIDE 97.4 mmol/L (98-107); GLUCOSE 115.4 mg/dL (74-106); POTASSIUM 3.85 mmol/L (3.5-5.1); SODIUM 136.7 mmol/L (134.5-145); TOTAL PROTEIN 7.46 g/dL (6.3-8.2)
[2024-02-24] MEDS: LASIX IVP STA (16:41)
[2024-02-24 16:46] LABS: PROTHROMBIN TIME 9.9 SEC (9.3-11.0)
[2024-02-24 17:00] LABS: TROPONIN I < 0.012 ng/ml (0.0000-0.120)
[2024-02-24 17:29] LABS: SARS COV-2 RNA RAPID NAAT NEGATIVE (NEGATIVE)
[2024-02-24 19:11] LABS: VBG HCO3 35.8 (22-26); VBG OXYGEN SATURATION 69.3 (60-80); VBG PH 7.43 (7.30-7.40)
--- NOTE | 2024-02-24 19:19 | CT ---
EXAM: CHEST CTA WITH CONTRAST (PULMONARY ARTERY) HISTORY: Dyspnea. Elevated D-dimer. TECHNIQUE: CTA acquisition of the chest from the thoracic inlet to the upper abdomen following IV con trast administration timed to filling of the pulmonary artery. IV Contrast: 100 mL of Visipaque 320 administered. 3D/MIP/VR images were utilized. CT Dose Reduction Techniques Employed: Yes. COMPARISON: CT chest 09/18/2023 FINDINGS: Pulmonary Embolism: - Diagnostic quality: Adequate. - Central (Main/Lobar/Interlobar): No embolus. - Peripheral (Segmental/Subsegmental): No embolus. - Right ventricle/Left ventricle ratio: Normal. Lines, Tubes, Devices: None. Lung Parenchyma and Airways: Central airways are patent without endobronchial lesion. The emphysemato us changes are again present. The lungs show scattered fibrocalcific changes and scarring which are unchanged. No focal consolidation or interstitial disease. No suspicious pulmonary nodule. Pleural Space: No pleural effusion or thickening. No pneumothorax. Thoracic Inlet, Mediastinum, and Eliana: Thyroid gland is normal. No enlarged lymph node or abnormal d ensity. Heart, Vessels, and Pericardium: The heart is upper limits normal for size. No pericardial effusion. Coronary artery calcifications. Aorta shows atherosclerotic calcific changes without aneurysm or d issection. The Bones and Soft Tissues: There is no fracture or lytic lesion. Stable compression of the T11 and T12 v ertebral body without retropulsion. Stable compression of the superior plate of L1 vertebral body. Stable mild compression of the superior plate of the T1 and the T3 vertebral bodies. No new compress ions. Continued mild prominence of the retroareolar soft tissues may be secondary to gynecomastia. Chest wall shows no enlarged axillary lymph node or mass. Upper Abdomen: Stable small hiatal hernia. A couple stable hepatic cysts. The upper abdomen visual ized is otherwise unremarkable. IMPRESSION: 1. No evidence of pulmonary artery embolism. 2. No acute abnormality of the chest. 3. Other chronic and non emergent findings as above. All CT scans are performed using dose optimization techniques as appropriate to the performed exam an d include at least one of the following: Automated exposure control, adjustment of the mA and/or kV according t o size, and the use of iterative reconstruction technique.
[2024-02-24 21:36] VITALS: BMI 24.7
[2024-02-24] MEDS ORDERED: ZOFRAN 4 MG/2 ML IVP PRN (21:55)
[2024-02-24] MEDS ORDERED: TYLENOL PO PRN (21:55)
[2024-02-24] MEDS ORDERED: ALBUTEROL 0.083% NEB NEB PRN (21:59)
[2024-02-24] MEDS ORDERED: NEURONTIN PO SCH (22:37)
[2024-02-24] MEDS: FLOMAX PO SCH (22:58)
[2024-02-24] MEDS: INDERAL PO SCH (22:58)
[2024-02-24] MEDS: PRILOSEC PO SCH (22:58)
[2024-02-24] MEDS: LASIX IVP SCH (22:58)
[2024-02-24] MEDS: NEURONTIN PO ONE (22:58)
[2024-02-24] MEDS: SYMBICORT 160-4.5 MCG INHALER IH SCH (23:22)
[2024-02-24] MEDS: PRAVACHOL PO SCH (23:23)
[2024-02-24] MEDS: SINGULAIR PO SCH (23:23)
[2024-02-25 05:25] LABS: BASOPHILS % (AUTO) 0.2 % (0.0-3.0); EOSINOPHILS # (AUTO) 0.4 K/ul (0.0-0.7); EOSINOPHILS % (AUTO) 3.5 % (0.0-7.0); HEMATOCRIT 31.7 % (42.0-52.0); HEMOGLOBIN 9.8 g/dl (14.0-18.0); IMMATURE GRANULOCYTE % (AUTO) 0.3 % (0.0-5.0); LYMPHOCYTES # (AUTO) 2.9 K/uL (0.60-3.4); LYMPHOCYTES % (AUTO) 24.1 (10.0-50.0); MEAN CORPUSCULAR HEMOGLOBIN 27.8 pg (27.0-31.0); MEAN CORPUSCULAR HGB CONC 30.9 (31.8-35.4); MEAN CORPUSCULAR VOLUME 90.1 fl (80.0-94.0); MONOCYTES # (AUTO) 1.5 K/uL (0.4-2.0); MONOCYTES % (AUTO) 12.6 (0-10); NEUTROPHILS # (AUTO) 7.2 K/ul (2.0-6.9); NEUTROPHILS % (AUTO) 59.3 % (42.2-75.2); PLATELET COUNT 407 10^3/uL (140-440); RDW COEFFICIENT OF VARIATION 14.8 % (11.6-14.8); RED BLOOD COUNT 3.52 10^6/ul (4.70-6.10); WHITE BLOOD COUNT 12.18 K/ul (4.2-10.2)
[2024-02-25 05:44] LABS: ALANINE AMINOTRANSFERASE 10.1 U/L (0-50); ALBUMIN 3.81 g/dL (3.5-5.0); ALKALINE PHOSPHATASE 89.1 U/L (56-119); ASPARTATE AMINO TRANSFERASE 20.2 U/L (17-59); BILIRUBIN,TOTAL 0.35 mg/dL (0.2-1.3); BLOOD UREA NITROGEN 19.8 mg/dL (9-20); CALCIUM 9.22 mg/dL (8.4-10.2); CARBON DIOXIDE 35.9 mmol/L (22-30.0); CHLORIDE 98.9 mmol/L (98-107); CREATININE 1.27 mg/dL (0.60-1.10); GLUCOSE 108.7 mg/dL (74-106); POTASSIUM 3.46 mmol/L (3.5-5.1); TOTAL PROTEIN 6.58 g/dL (6.3-8.2)
[2024-02-25] MEDS: LASIX IVP SCH ×2 (06:04→20:47)
[2024-02-25] MEDS: PRILOSEC PO SCH (07:50)
[2024-02-25] MEDS: SYMBICORT 160-4.5 MCG INHALER IH SCH (08:56)
[2024-02-25] MEDS: SPIRIVA IH SCH (08:56)
[2024-02-25] MEDS: ALDACTONE PO SCH (08:57)
[2024-02-25] MEDS: NEURONTIN PO SCH (08:57)
[2024-02-25] MEDS: CLARITIN PO SCH (08:58)
[2024-02-25] MEDS: WELLBUTRIN XL PO SCH (08:58)
[2024-02-25] MEDS ORDERED: NEURONTIN PO SCH (09:00)
[2024-02-25] MEDS ORDERED: NON-FORMULARY MEDICATION (Fluticasone-Umeclidin-Vilanter [Trelegy Ellipta] 200-62.5-25 mcg IH SCH (09:00)
[2024-02-25] MEDS: K-DUR PO ONE (09:01)
[2024-02-25] MEDS: K-DUR PO SCH (09:01)
--- NOTE | 2024-02-25 10:25 | PCM ---
Date of Service Date Seen by Provider: 02/25/24 Time Seen by Provider: 08:45 Admit Day/Time Admission Date: 02/24/24 Admission Time: 20:21 Reason for Admission Chief Complaint: RIGHT SIDED CHF Hospital Provider Hospital Provider: BERNABE ENCARNACION PA-C, [facility] [place] Primary Care Physician Primary Care Physician: LV AGUILA MD History of Present Illness History of Present Illness: Patient is a 78 year old male with pmhx of HFpEF, COPD with chronic respiratory failure at 3L, depression, AAA, hyperlipidemia, hypertension, who presents to ER with worsening edema and sob over the last several days. Patient normally takes lasix and spironolactone. He has limited ambulation ability but has been more SOB with exertion lately as well. He is on his baseline 3L. In ER CTA negative for acute findings but noted to have pitting edema to abdomen. Pt was given lasix. Admitted to med surg. Pt lives at home with granddaughter, who is a INVENTORY CONTROL/SHIPPING RECEIVING. Upon my evaluation today, he is feeling some better and thinks his swelling has improved. Family feels patient needs some additional rehab. Case Discussed With Case Discussed With: Patient's case was discussed with the ER Physicians, Dr. Geiger. [facility] Medical History Acute exacerbation of chronic obstructive pulmonary disease J44.1 - Chronic obstructive pulmonary disease with (acute) exacerbation (ICD-10) Pneumonia due to 2019 novel coronavirus U07.1 - COVID-19 (ICD-10) J12.82 - Pneumonia due to coronavirus disease 2019 (ICD-10) Encounter for Medicare annual wellness exam Z00.00 - Encounter for general adult medical examination without abnormal findings (ICD-10) History of COVID-19 07/10 took paxlovid Z86.16 - Personal history of COVID-19 (ICD-10) Pneumonia J18.9 - Pneumonia, unspecified organism (ICD-10) COPD (chronic obstructive pulmonary disease) J44.9 - Chronic obstructive pulmonary disease, unspecified (ICD-10) Pneumonia J18.9 - Pneumonia, unspecified organism (ICD-10) Influenza A J10.1 - FLU DUE TO OTH IDENT INFLUENZA VIRUS W OTH RESP MANIFEST (ICD-10) Left lower lobe pneumonia J18.9 - PNEUMONIA, UNSPECIFIED ORGANISM (ICD-10) Family History Mother No problems noted. FATHER No problems noted. Other No known health problems Social History Smoking and tobacco status: Former smoker Tobacco: How many years used: 50 How long ago did patient quit smoking: quit 3 years ago Alcohol intake: never Substance use type: does not use Special aminata needs: No Agree to transfusion: Yes Adopted: No Caregiver/support person: No Foster care: No Household members: children Housing: house Marital status: W / Daycare: no daycare Number of children: 2 service: Yes senior care: No Current occupational status: retired History of recent travel: No Do you think of yourself as: straight/heterosexual Current gender identity: male Seatbelt use: always Drives intoxicated or rides with intoxicated security patrol driver: No Water heater temperature set < 120 degrees: Yes Working smoke detector in home: Yes Fire extinguisher in home: Yes Carbon monoxide detector in home: Yes Allergies Allergies Allergy/AdvReac Type Severity Reaction Status Date / Time hydrochlorothiazide AdvReac Intermediate Hypotension Verified 02/24/24 15:55 [From Dyazide] triamterene [From Dyazide] AdvReac Intermediate Hypotension Verified 02/24/24 15:55 cefdinir AdvReac Mild doent work Verified 02/24/24 15:55 Current Medications Home Medications montelukast 10 mg tablet 10 mg PO BEDTIME 10/14/22 [History Confirmed 02/24/24 Last Taken 10/13/22] acetaminophen 325 mg tablet 650 mg PO Q4-6H PRN Elevated temp or mild pain 12/09/22 [History Confirmed 02/24/24 Last Taken Unknown] albuterol sulfate 2.5 mg/3 mL (0.083 %) solution for nebulization 2.5 mg inhalation Q4H PRN shortness of breath or wheezing 12/09/22 [History Confirmed 02/24/24 Last Taken Unknown] ascorbic acid (vitamin C) 1,000 mg tablet 500 mg PO DAILY 12/09/22 [History Confirmed 02/24/24 Last Taken Unknown] cholecalciferol (vitamin D3) 25 mcg (1,000 unit) capsule 25 mcg PO DAILY 12/09/22 [History Confirmed 02/24/24 Last Taken Unknown] guaifenesin 600 mg tablet, extended release 12 hr 1,200 mg PO Q12H PRN congestion 12/09/22 [History Confirmed 02/24/24 Last Taken Unknown] multivitamin with minerals (Multiple Vitamin-Minerals tablet) 1 tab PO DAILY 12/09/22 [History Confirmed 02/24/24 Last Taken Unknown] budesonide 1 mg/2 mL suspension for nebulization (Pulmicort) 1 mg inhalation BEDTIME PRN shortness of air 08/15/23 [History Confirmed 02/24/24 Last Taken 01/14/24] cetirizine 10 mg tablet (24Hour Allergy) 10 mg PO DAILY 08/15/23 [History Confirmed 02/24/24 Last Taken Unknown] docusate sodium 100 mg capsule (Colace) 200 mg PO BID PRN constipation 08/15/23 [History Confirmed 02/24/24 Last Taken Unknown] fluticasone fur. 200 mcg-umeclid 62.5 mcg-vilant 25 mcg inhalat.powder (Trelegy Ellipta) 1 inh inhalation DAILY 08/15/23 [History Confirmed 02/24/24 Last Taken Unknown] magnesium 200 mg tablet 30 mg PO DAILY 08/15/23 [History Confirmed 02/24/24 Last Taken Unknown] vitamin B complex (B Complex-Vitamin B12 tablet) 2 tab PO DAILY 08/15/23 [History Confirmed 02/24/24 Last Taken 01/15/24] bupropion HCl 300 mg 24 hr tablet, extended release (Wellbutrin XL) 300 mg PO QAM 12/24/23 [History Confirmed 02/24/24 Last Taken Unknown] pravastatin 40 mg tablet 40 mg PO BEDTIME 12/24/23 [History Confirmed 02/24/24 Last Taken 01/15/24] gabapentin 100 mg capsule 200 mg PO BID 01/15/24 [History Confirmed 02/24/24 Last Taken 01/15/24] tamsulosin 0.4 mg capsule See Rx Instructions .Route .COMPLEX 01/15/24 [History Confirmed 02/24/24 Last Taken 01/15/24] albuterol sulfate 90 mcg/actuation aerosol inhaler (ProAir HFA) 2 puff inhalation Q4H PRN Shortness of air #8.5 grams 02/13/24 [Rx Confirmed 02/24/24 Last Taken Unknown] furosemide 40 mg tablet See Rx Instructions .Route .COMPLEX #90 tabs 02/13/24 [ Rx Confirmed 02/24/24 Last Taken Unknown] omeprazole 20 mg capsule,delayed release See Rx Instructions .Route .COMPLEX #180 caps 02/13/24 [Rx Confirmed 02/24/24 Last Taken Unknown] potassium chloride 10 mEq tablet,extended release(part/cryst) 20 meq (2 x 10 mEq) PO DAILY #90 tabs 02/13/24 [Rx Confirmed 02/24/24 Last Taken Unknown] propranolol 20 mg tablet See Rx Instructions .Route .COMPLEX #180 tabs 02/13/24 [Rx Confirmed 02/24/24 Last Taken Unknown] spironolactone 25 mg tablet See Rx Instructions .Route .COMPLEX #90 tabs 02/13/24 [Rx Confirmed 02/24/24 Last Taken Unknown] fexofenadine 180 mg tablet 180 mg PO DAILY 02/24/24 [History Confirmed 02/24/24 Last Taken Unknown] furosemide 20 mg tablet (Lasix) 40 mg PO DAILY PRN SWELLING 02/24/24 [History Confirmed 02/24/24 Last Taken Unknown] triamcinolone acetonide 0.1 % topical cream 1 applic topical BID PRN arms 02/24/24 [History Confirmed 02/24/24 Last Taken Unknown] Home Acetaminophen (Acetaminophen 325 Mg Tablet) 650 mg PO Q4H PRN PRN Reason: Mild Pain Albuterol Sulfate (Albuterol Sulfate 0.083% Vial.Neb) 2.5 mg NEB Q4H PRN PRN Reason: shortness of breath Budesonide/Formoterol Fumarate (Budesonide/Formoterol Fumarate 160/4.5 Mcg Inhaler) 2 puff IH BID [facility] Last Admin: 02/25/24 08:56 Dose: 2 puff Bupropion HCl (Bupropion Hcl 150 Mg Tab.Er.24h) 300 mg PO QAM [facility] Last Admin: 02/25/24 08:58 Dose: 300 mg Enoxaparin Sodium (Enoxaparin Sodium 40 Mg/0.4 Ml Syr) 40 mg SUBCUT DAILY [facility] Furosemide (Furosemide Inj 20 Mg/2 Ml Vial) 20 mg IVP Q12HR [facility] Gabapentin (Gabapentin 100 Mg Capsule) 200 mg PO BID [facility] Last Admin: 02/25/24 08:57 Dose: 200 mg Loratadine (Loratadine 10 Mg Tablet) 10 mg PO DAILY [facility] Last Admin: 02/25/24 08:58 Dose: 10 mg Montelukast Sodium (Montelukast Sodium 10 Mg Tablet) 10 mg PO BEDTIME [facility] Last Admin: 02/24/24 23:23 Dose: Not Given Omeprazole (Omeprazole 20 Mg Capsule.Dr) 20 mg PO BIDAC2 [facility] Last Admin: 02/25/24 07:50 Dose: 20 mg Ondansetron HCl (Ondansetron Hcl/Pf 4 Mg/2 Ml Sdv) 4 mg IVP Q6H PRN PRN Reason: Nausea / Vomiting Potassium Chloride (Potassium Chloride 20 Meq Tab) 20 meq PO DAILYWM2 [facility] Last Admin: 02/25/24 09:01 Dose: 20 meq Pravastatin Sodium (Pravastatin Sodium 40 Mg Tablet) 40 mg PO BEDTIME [facility] Last Admin: 02/24/24 23:23 Dose: Not Given Propranolol HCl (Propranolol Hcl 20 Mg Tablet) 20 mg PO BID [facility] Last Admin: 02/25/24 08:57 Dose: 20 mg Sodium Chloride (0.9% Sodium Chloride 10 Ml Disp.Syrin) 1 syr IVF Q8H [facility] Last Admin: 02/25/24 14:10 Dose: 1 syr Spironolactone (Spironolactone 25 Mg Tablet) 25 mg PO DAILY [facility] Last Admin: 02/25/24 08:57 Dose: 25 mg Tamsulosin HCl (Tamsulosin Hcl 0.4 Mg Cap.Er.24h) 0.4 mg PO BEDTIME [facility] Last Admin: 02/24/24 22:58 Dose: 0.4 mg Tiotropium [place] (Tiotropium [place] 18 Mcg Cap.W.Dev) 1 cap IH DAILY [facility] Last Admin: 02/25/24 08:56 Dose: 1 cap Discontinued Medications Budesonide/Formoterol Fumarate (Budesonide/Formoterol Fumarate 160/4.5 Mcg Inhaler) 2 puff IH BID [facility] Last Admin: 02/24/24 23:22 Dose: Not Given Furosemide (Furosemide Inj 20 Mg/2 Ml Vial) 20 mg IVP ONCE STA Stop: 02/24/24 16:07 Last Admin: 02/24/24 16:41 Dose: 20 mg Furosemide (Furosemide Inj 20 Mg/2 Ml Vial) 20 mg IVP Q8HR [facility] Last Admin: 02/24/24 22:58 Dose: 20 mg Furosemide (Furosemide Inj 20 Mg/2 Ml Vial) 20 mg IVP Q8H [facility] Last Admin: 02/25/24 06:04 Dose: 20 mg Gabapentin (Gabapentin 100 Mg Capsule) 200 mg PO BID [facility] Gabapentin (Gabapentin 100 Mg Capsule) 200 mg PO BID [facility] Gabapentin (Gabapentin 100 Mg Capsule) 200 mg PO ONCE ONE Stop: 02/24/24 22:49 Last Admin: 02/24/24 22:58 Dose: 200 mg Non-Formulary Medication (Dcstdwhrekd-Nmdpoanyv-Lygdjvof [Trelegy Ellipta]) 1 inh IH DAILY [facility] Omeprazole (Omeprazole 20 Mg Capsule.Dr) 20 mg PO BID [facility] Last Admin: 02/24/24 22:58 Dose: 20 mg Potassium Chloride (Potassium Chloride 20 Meq Tab) 40 meq PO ONCE ONE Stop: 02/25/24 08:25 Last Admin: 02/25/24 09:01 Dose: 40 meq Sodium Chloride (0.9% Sodium Chloride 10 Ml Disp.Syrin) 1 syr IVF PRN PRN PRN Reason: To flush IV Last Admin: 02/24/24 16:41 Dose: 1 syr Opioid Naive vs. Tolerant Does Patient Take Opioids?: No Is Patient Opioid Naive?: Yes What is Opioid Naive?: *Opioid Naive implies the patient is not already taking opioids or not chronically receiving opioids on a daily basis. *PRN dosing is not "usually" associated with tolerance. *Patients are at higher risk of over-sedation and aspiration. Is Patient Opioid Tolerant?: No What is Opioid Tolerant?: *Opioid Tolerance implies less than the expected response to an opioid. *Acquired tolerance is defined by the patient taking 60mg of oral morphine daily (or equianalgesic dose of another opioid) for 1 week or more. *Often associated with chronic pain. *May take more than usual dose to achieve desired pain control. Review of Systems Constitutional: Reports Fatigue and Weakness Head: Reports Normocephalic and Atraumatic Cardiovascular: Reports Edema; Denies Chest pain Respiratory: Reports Shortness of air; Denies Cough Gastrointestinal: Denies Nausea, Vomiting, Diarrhea, Abdominal pain or Melena Genitourinary: Denies Dysuria Dermatologic: Denies Rashes Neurological: Reports Weakness and Problems with walking Physical examination Most Recent Vital Signs: Most Recent Vital Signs Temperature 97.6 F 02/25/24 05:39 Temperature Source Temporal Artery Scan 02/25/24 05:39 Temperature Source Tympanic 02/24/24 15:49 Pulse Rate 56 L 02/25/24 05:39 Respiratory Rate 18 02/25/24 05:39 Blood Pressure 109/57 L 02/25/24 05:39 Blood Pressure Mean 74 02/25/24 05:39 Blood Pressure Right Arm 151/86 02/24/24 21:02 Blood Pressure Position Supine 02/24/24 21:02 O2 Sat by Pulse Oximetry 97 02/25/24 05:39 Oxygen Delivery Method Nasal Cannula 02/25/24 08:00 Oxygen Flow Rate 2 02/25/24 08:00 Height 5 ft 10 in 02/24/24 21:02 Weight 172 lb 9 oz 02/25/24 06:05 Telemetry Type Remote Telemetry 02/25/24 07:00 Telemetry Monitoring Continues 02/25/24 07:00 Telemetry Heart Rate 50 L 02/25/24 07:00 Telemetry SPO2 97 02/25/24 07:00 EKG PA Interval 0.20 02/25/24 07:00 EKG QRS Interval 0.10 02/25/24 07:00 Telemetry Strip Reading Sinus Xiang with 1st degree AVB 02/25/24 07:00 Appearance: Positive No Apparent Distress and Alert and Oriented x3 Skin: Positive [place], Warm, Good Turgor and Good Color; Negative Rashes HEENT: Positive Normocephalic and Atraumatic Neck: Positive Supple and Midline Trachea Chest/Lungs: Positive Clear to Auscultation Bilaterally; Negative Rales, Rhonci or Wheezes Heart: Positive RRR GI/: Positive Soft, Nontender, Bowel Sounds Normal and No Distention Neurological: Positive Cranial Nerves Intact, Alert, Oriented and Other (+generalized weakness ) Psychiatric: Positive Oriented x4, Appropriate Mood and Appropriate Affect Labs This Visit Labs This Visit: Labs This Visit 02/24/24 02/24/24 02/24/24 16:20 16:52 19:00 WBC 12.75 H RBC 3.80 L Hgb 10.6 L Hct 35.1 L MCV 92.4 MCH 27.9 MCHC 30.2 L RDW Coeff of Terry 14.9 H Plt Count 411 Immature Gran % (Auto) 0.3 Neut % (Auto) 63.8 Lymph % (Auto) 23.7 Kidder % (Auto) 9.6 Eos % (Auto) 2.2 Baso % (Auto) 0.4 Neut # (Auto) 8.1 H Lymph # (Auto) 3.0 Kidder # (Auto) 1.2 Eos # (Auto) 0.3 Baso # (Auto) 0.1 Immature Gran # (Auto) 0.0 PT 9.9 INR 0.95 VBG pH 7.43 H VBG pCO2 54 H VBG pO2 35 L VBG HCO3 35.8 H VBG O2 Saturation 69.3 Sodium 136.7 Potassium 3.85 Chloride 97.4 L Carbon Dioxide 32.9 H Anion Gap 10.25 BUN 18.6 Creatinine 1.20 H Estimated GFR (MDRD) 58.00 BUN/Creatinine Ratio 15.50 Glucose 115.4 H Calcium 9.31 Total Bilirubin 0.48 AST 22.1 ALT 13.1 Alkaline Phosphatase 90.0 Troponin I < 0.012 NT-Pro-B Natriuret Pep 66 Total Protein 7.46 Albumin 4.43 Globulin 3.03 Albumin/Globulin Ratio 1.46 D-Dimer 1004.09 H SARS CoV-2 RNA Rapid KENJI Negative 02/25/24 02/25/24 05:07 05:20 WBC 12.18 H RBC 3.52 L Hgb 9.8 L Hct 31.7 L MCV 90.1 MCH 27.8 MCHC 30.9 L RDW Coeff of Terry 14.8 Plt Count 407 Immature Gran % (Auto) 0.3 Neut % (Auto) 59.3 Lymph % (Auto) 24.1 Kidder % (Auto) 12.6 H Eos % (Auto) 3.5 Baso % (Auto) 0.2 Neut # (Auto) 7.2 H Lymph # (Auto) 2.9 Kidder # (Auto) 1.5 Eos # (Auto) 0.4 Baso # (Auto) 0.0 Immature Gran # (Auto) 0.0 PT INR VBG pH VBG pCO2 VBG pO2 VBG HCO3 VBG O2 Saturation Sodium 138.0 Potassium 3.46 L Chloride 98.9 Carbon Dioxide 35.9 H Anion Gap 6.66 BUN 19.8 Creatinine 1.27 H Estimated GFR (MDRD) 55.00 BUN/Creatinine Ratio 15.59 Glucose 108.7 H Calcium 9.22 Total Bilirubin 0.35 AST 20.2 ALT 10.1 Alkaline Phosphatase 89.1 Troponin I NT-Pro-B Natriuret Pep Total Protein 6.58 Albumin 3.81 Globulin 2.77 Albumin/Globulin Ratio 1.37 D-Dimer SARS CoV-2 RNA Rapid KENJI Imaging Imaging: EXAM: CHEST CTA WITH CONTRAST (PULMONARY ARTERY) HISTORY: Dyspnea. Elevated D-dimer. TECHNIQUE: CTA acquisition of the chest from the thoracic inlet to the upper abdomen following IV contrast administration timed to filling of the pulmonary artery. IV Contrast: 100 mL of Visipaque 320 administered. 3D/MIP/VR images were utilized. CT Dose Reduction Techniques Employed: Yes. COMPARISON: CT chest 09/18/2023 FINDINGS: Pulmonary Embolism: - Diagnostic quality: Adequate. - Central (Main/Lobar/Interlobar): No embolus. - Peripheral (Segmental/Subsegmental): No embolus. - Right ventricle/Left ventricle ratio: Normal. Lines, Tubes, Devices: None. Lung Parenchyma and Airways: Central airways are patent without endobronchial lesion. The emphysematous changes are again present. The lungs show scattered fibrocalcific changes and scarring which are unchanged. No focal consolidation or interstitial disease. No suspicious pulmonary nodule. Pleural Space: No pleural effusion or thickening. No pneumothorax. Thoracic Inlet, Mediastinum, and Eliana: Thyroid gland is normal. No enlarged lymph node or abnormal density. Heart, Vessels, and Pericardium: The heart is upper limits normal for size. No pericardial effusion. Coronary artery calcifications. Aorta shows atherosclerotic calcific changes without aneurysm or dissection. The Bones and Soft Tissues: There is no fracture or lytic lesion. Stable compression of the T11 and T12 vertebral body without retropulsion. Stable compression of the superior plate of L1 vertebral body. Stable mild compression of the superior plate of the T1 and the T3 vertebral bodies. No new compressions. Continued mild prominence of the retroareolar soft tissues may be secondary to gynecomastia. Chest wall shows no enlarged axillary lymph node or mass. Upper Abdomen: Stable small hiatal hernia. A couple stable hepatic cysts. The upper abdomen visualized is otherwise unremarkable. IMPRESSION: 1. No evidence of pulmonary artery embolism. 2. No acute abnormality of the chest. 3. Other chronic and non emergent findings as above. Review Statement Review Statement: I have independently reviewed and interpreted the labs/EKGs/imaging that were ordered by the ER provider. I have reviewed all outside records that are available currently in our EMR including imaging/notes/labs from previous visits. Plan Plan: 1. Acute HFpEF exacerbation - Last echo in 08/10 had normal EF. Decrease lasix to q12hrs, I&O, daily weights, cardiac diet, spironolactone, fluid restrict, replace K+ as needed. 2. COPD - Doesn't appear to be acutely exacerbated, cont home regimen. Sees pulm outpatient. 3. Hypertension - Cont home meds 4. Hyperlipidemia - Cont home meds 5. BPH - Cont home meds 6. Anxiety/depression - Cont home meds 7. Chronic leukocytosis - pt saw Jasmin Robbins NP heme/onc at [facility] 08/10 and she initiated work up. DVT Prophylaxis: Lovenox Time Spent: Greater than 80 minutes spent with patient, 50% of the time spent with this patient was devoted to counseling and coordination of care. [facility] Plannin minutes spent discussing advance care planning. Admit to: Inpatient Discussed Plan of Care with Dr. Toni Aguila. Medications Medication Orders: Medications Ordered Category Date Time Status 0.9 % Sodium Chloride [Saline Flush] Meds 02/24/24 23:00 Active 1 syr IVF Q8H Acetaminophen [Tylenol] Meds 02/24/24 21:55 Active 650 mg PO Q4H PRN Albuterol Sulfate 0.083% Neb [Albuterol 0.083% Neb] Meds 02/24/24 21:59 Active 2.5 mg NEB Q4H PRN Budesonide/Formoterol Fumarate [Symbicort 160-4.5 Mcg Meds 02/25/24 09:00 Active Inhaler] 2 puff IH BID Bupropion HCl [Wellbutrin Xl] Meds 02/25/24 09:00 Active 300 mg PO QAM Furosemide [Lasix] Meds 02/25/24 07:00 Active 20 mg IVP Q8H Gabapentin [Neurontin] Meds 02/25/24 09:00 Active 200 mg PO BID Loratadine [Claritin] Meds 02/25/24 09:00 Active 10 mg PO DAILY Montelukast Sodium [Singulair] Meds 02/24/24 23:00 Active 10 mg PO BEDTIME Omeprazole [Prilosec] Meds 02/25/24 07:00 Active 20 mg PO BIDAC2 Ondansetron HCl/Pf [Zofran 4 mg/2 ml] Meds 02/24/24 21:55 Active 4 mg IVP Q6H PRN Potassium Chloride [K-Dur] Meds 02/25/24 09:00 Active 20 meq PO DAILYWM2 Pravastatin Sodium [Pravachol] Meds 02/24/24 23:00 Active 40 mg PO BEDTIME Propranolol HCl [Inderal] Meds 02/24/24 22:00 Active 20 mg PO BID Spironolactone [Aldactone] Meds 02/25/24 09:00 Active 25 mg PO DAILY Tamsulosin HCl [Flomax] Meds 02/24/24 22:00 Active 0.4 mg PO BEDTIME Tiotropium [place] [Spiriva] Meds 02/25/24 09:00 Active 1 cap IH DAILY
--- NOTE | 2024-02-25 10:56 | RS.PTINEVL ---
Subjective Patient information Date of Evaluation: 02/25/24 Date of Arrival on Unit: 02/24/24 Admitted From:: Home Diagnosis: acute exacerbation of R side CHF Usual Living Arrangement: LIVES WITH GRANDDAUGHTER Living Arrangement Comments: lives with adult granddaughter, Akilah Lagunas. Home Environment: House Medical History: Hypertension, COPD, CHF and Arthritis Medical History Comments:: R hip fx, depression, AAA, hiatal hernia LATEX ALLERGY?: No Medications: see chart Subjective Information/ Patient Comments:: pt states that he just got out of the shower with nursing. pt reports that he would like to try to walk. Level of function Prior to this admission, the patient could do the following:: Independent Selfcare, Independent ADL's, Independent Ambulation and Drive Abilities prior to this admission: pt reports that he walked with rollator at home. Had home O2 Current Level of Function: Partially Dependent Current Equipment Used at Home: rollator, 02, NEBULIZER Interventions Objective Patient Orientation: Person, Place and Situation Current Interventions: IV's, Oxygen (3 liters) and Telemetry Observation: pt with pitting edema BLE Range of Motion ROM Right Upper Extremity AROM: Slight limitation (decreased shld flex ) Left Upper Extremity AROM: Slight limitation (decreased shld flex ) Right Lower Extremity AROM: WFL's Left Lower Extremity AROM: WFL's Muscle Strength Muscle Strength Right Upper Extremity: Mild Weakness (shld flex 4-/5, elbow flex/ext 4/5 ) Left Upper Extremity: Mild Weakness (shld flex 3+/5, elbow flex/ext 4/5 ) Right Lower Extremity: Mild Weakness (hip flex 4/5, knee flex/ext 4+/5, ankle DF/PF 4/5) Left Lower Extremity: Mild Weakness (hip flex 4/5, knee flex/ext 4+/5, ankle DF/PF 4/5) Sensation Sensation Right Upper Extremity: Intact/Normal Left Upper Extremity: Intact/Normal Right Lower Extremity: Intact/Normal Left Lower Extremity: Intact/Normal Palpation Palpation Findings: None/Normal Balance Sitting Balance and Reactions Static Sitting Balance: Good Dynamic Sitting Balance: Good (good-) Standing Balance and Reactions Static Standing Balance: Fair (fair-) Dynamic Standing Balance: Poor Functional Mobility Bed Mobility Rolling R/L: Supervision Scooting: Min Assist Sit to Supine: Supervision Transfers Sit to Stand: CGA Stand to Sit: CGA Safety Awareness Safety Awareness: Fair EVIN INDEX SCORE: n/a Ambulation Ambulation Assistive Device Used: Rolling Walker Orthotic/Prosthetic Device: No Distance: 80ft Assistance needed with Ambulation: CGA, 1 person assist and 2 person assist Quality of Ambulation: pt amb with CGA x 1 +1 for O2. Gait Deviations: Forward posture, Short stride and Deviates from path Ambulation Comments: pt amb with increased lat sway, decreased step length. Factors Affecting Ambulation: Decreased Balance, Breathing/O2 Saturation, W eakness, Decreased Safety and Limited Endurance Treatment time Units charged Gait trainin Time with patient Length of Evaluation: 19 Total treatment time: 31 Patient Education Education Patient Education: Activity Modification and Education of Plan of Care Teaching Recipient: Patient Teaching Methods: Discussion Comments: discussion regarding POC Assessment Assessment Problem List:: Decreased level of function, Requires training/education, Decreased safety/Risk of falls and Weakness Rehab Potential: Good Further Therapy Indicated?: Yes Candidate for Swing Bed for Therapy Services?: Would need to reassess closer to ok. Evaluation Complexity: HISTORY: Medium, EXAM OF BODY SYSTEMS: Medium, CLINICAL PRESENTATION: Medium and CLINICAL DECISION MAKING: Medium Patient's Goal(s): get stronger Short Term Goals GOAL #1: pt independent with rolling and scooting in bed. Goal to be met by: 02/27/24 GOAL #2: Transfer sup to/from sit with SBA Goal to be met by: 02/27/24 GOAL #3: Transfer sit to/from stand SBA Goal to be met by: 02/27/24 GOAL #4: Ambulate with rwx and O2 100ft with CGA x 1 Goal to be met by: 02/27/24 GOAL #5: Improve BLE strength 4+/5 Goal to be met by: 02/28/24 Longterm Goals GOAL #1: Transfer sup to/from sit to/from stand independently. Goal to be met by: 02/29/24 GOAL #2: pt amb with rwx functional household distances with O2 SBA to CGA Goal to be met by: 02/29/24 GOAL #3: pt ascend/descend 2 steps with HR with CGA Goal to be met by: 02/29/24 Plan Plan of Care: Therapeutic EX, Neuromuscular Re-Educ and Therapeutic Activity Other:: gait training Frequency of Treatment: 1-2 X day, as tolerated Duration of Treatment: 5 days Anticipated Discharge Destination: undetermined Treatment Diagnosis (ICD 10 Codes): impaired balance R 26.81 gait difficulty R 26.2 weakness M62.81 Has the Physician been added for Co-signature?: Yes
--- NOTE | 2024-02-25 13:13 | RS.OTINEVL ---
Subjective Patient information Date of Evaluation: 02/25/24 Date of Arrival on Unit: 02/24/24 Admitted From:: Home Diagnosis: R side CHF, Edema of legs PRECAUTIONS: Edema of feet and abdomen Usual Living Arrangement: LIVES WITH GRANDDAUGHTER Living Arrangement Comments: lives with adult granddaughter, Akilah Lagunas. Home Environment: House Medical History: Hypertension, COPD, CHF and Arthritis Medical History Comments:: R hip fx, depression, AAA, hiatal hernia LATEX ALLERGY?: No Medications: see chart Subjective Information/ Patient Comments:: "I am doing okay." "I have one of those walkers." Level of function Prior to this admission, the patient could do the following:: Independent Selfcare, Independent ADL's, Independent Ambulation and Drive Abilities prior to this admission: Pt reports he is at home during the day by himself. That all of his family works during the day. Current Level of Function: Partially Dependent Comments: Pt is CGA with walking and he stood beside the bed CGA. Pt completes sit to stand CGA. Current Equipment Used at Home: rollator, 02, NEBULIZER Pain Assessment Pain Pain Alleviating Factors: Medication and Position Change Interventions Objective Patient Orientation: Person, Place and Situation Current Interventions: IV's, Oxygen and Telemetry Observation: Pt is able to stand from EOB CGA. Pt has edema of his feet and needs to be elevated. Pt is Oriented x 3 and is talking on his cell phone. Pt is weak and has decreased AROM of the LUE. RUE has WFL AROM. Pt would benefit from skilled OT to increase strength and function for ADLs. Interventions ROM Right Upper Extremity AROM: WFL's Left Upper Extremity AROM: Moderate limitation Strength Right Upper Extremity: Mild Weakness Left Upper Extremity: Moderate Weakness Sensation Right Upper Extremity: Intact/Normal Left Upper Extremity: Intact/Normal Balance Sitting Balance Static Sitting Balance: Good Dynamic Sitting Balance: Good Standing Balance Static Standing Balance: Poor Dynamic Standing Balance: Poor ADL Skills Self Feeding Self Feeding: Independent Grooming Grooming: CGA Grooming Set-up: Sitting Bathing Bathing UE: Min Assist Bathing LE: Mod Assist Bathing Set-up: Shower Toilet Management Toilet Hygiene: Independent Toilet Clothing Management: CGA Functional Mobility Transfers Sit to Stand: CGA Stand to Sit: Min Assist Stand Pivot Transfers: CGA Ambulation Weight Bearing Status: FWB Assistive Device Used: Rolling Walker Assistance needed with Ambulation: CGA Safety Awareness Safety Awareness: Fair EVIN INDEX SCORE: . Additional Treatment Performed Additional units charged ADL: 15 Time with patient Length of Evaluation: 18 Total treatment time: 33 Activities Do you enjoy playing games?: Yes Would you be interested in leaving your room for activities?: Yes Would you enjoy group activities?: Yes Do you have difficulty with your vision?: Yes Patient Interests:: Watching Television and Visiting/Socializing Patient Education Patient Education: Home Exercise Program, Activity Modification and Education of Plan of Care Teaching Recipient: Patient Teaching Methods: Discussion and Demonstration Assessment Problem List:: Decreased level of function, Requires training/education, Decreased safety/Risk of falls and Weakness Rehab Potential: Fair Further Therapy Indicated?: Yes Evaluation Complexity: HISTORY: Medium, EXAM OF BODY SYSTEMS: Medium and CLINICAL DECISION MAKING: Medium Patient's Goal(s): To get some rehab to get stronger. Short Term Goals Goals GOAL 1: Pt to be Independent with don/doff his socks. Goal to be met by: 02/27/24 GOAL 2: Pt to increase LUE shoulder flexion to 145 deg. Goal to be met by: 02/27/24 GOAL 3: Pt to be SUP for toilet transfers with RW. Goal to be met by: 02/27/24 GOAL 4: Pt to increase dyn. std. bal. to F+. Goal to be met by: 02/27/24 [facility] Goals GOAL 1: Pt to be SUP for ADLs. Goal to be met by: 02/29/24 GOAL 2: Pt to increase LUE AROM to be WFL. Goal to be met by: 02/29/24 GOAL 3: Pt to increase dyn. std. bal. to G-. Goal to be met by: 02/29/24 Plan Plan of Care: Therapeutic EX, Neuromuscular Re-Educ, Therapeutic Activity and Self-Care/Home Management Frequency of Treatment: 1-2 X day, as tolerated Duration of Treatment: 4-5 days. Anticipated Discharge Destination: [facility] Treatment Diagnosis (ICD 10 Codes): Z74.1 Need for assistance with personal care. R53.1 Weakness Has the Physician been added for Co-signature?: Yes
[2024-02-25] MEDS: MUCINEX PO SCH (20:45)
[2024-02-26 05:20] LABS: BASOPHILS % (AUTO) 0.2 % (0.0-3.0); EOSINOPHILS # (AUTO) 0.4 K/ul (0.0-0.7); EOSINOPHILS % (AUTO) 3.1 % (0.0-7.0); HEMATOCRIT 31.4 % (42.0-52.0); HEMOGLOBIN 9.5 g/dl (14.0-18.0); IMMATURE GRANULOCYTE # (AUTO) 0.1 (0.0-1.0); IMMATURE GRANULOCYTE % (AUTO) 0.5 % (0.0-5.0); LYMPHOCYTES # (AUTO) 3.3 K/uL (0.60-3.4); MEAN CORPUSCULAR HEMOGLOBIN 27.4 pg (27.0-31.0); MEAN CORPUSCULAR HGB CONC 30.3 (31.8-35.4); MEAN CORPUSCULAR VOLUME 90.5 fl (80.0-94.0); MONOCYTES # (AUTO) 1.4 K/uL (0.4-2.0); MONOCYTES % (AUTO) 10.6 (0-10); NEUTROPHILS # (AUTO) 7.9 K/ul (2.0-6.9); NEUTROPHILS % (AUTO) 60.6 % (42.2-75.2); PLATELET COUNT 386 10^3/uL (140-440); RDW COEFFICIENT OF VARIATION 14.9 % (11.6-14.8); RED BLOOD COUNT 3.47 10^6/ul (4.70-6.10); WHITE BLOOD COUNT 13.06 K/ul (4.2-10.2)
[2024-02-26 05:36] LABS: ALANINE AMINOTRANSFERASE 10.2 U/L (0-50); ALBUMIN 3.81 g/dL (3.5-5.0); ALKALINE PHOSPHATASE 83.8 U/L (56-119); ASPARTATE AMINO TRANSFERASE 21.4 U/L (17-59); BILIRUBIN,TOTAL 0.44 mg/dL (0.2-1.3); BLOOD UREA NITROGEN 21.7 mg/dL (9-20); CALCIUM 9.21 mg/dL (8.4-10.2); CARBON DIOXIDE 35.1 mmol/L (22-30.0); CHLORIDE 99.6 mmol/L (98-107); CREATININE 1.12 mg/dL (0.60-1.10); POTASSIUM 3.97 mmol/L (3.5-5.1); SODIUM 138.1 mmol/L (134.5-145); TOTAL PROTEIN 6.62 g/dL (6.3-8.2)
[2024-02-26] MEDS: LOVENOX SUBCUT SCH (08:20)
--- NOTE | 2024-02-26 09:13 | PCM.PROG ---
Date/Time Seen Date Seen by Provider: 02/26/24 Time Seen by Provider: 08:45 Provider Provider: BERNABE ENCARNACION PA-C, [facility] Chief Complaint Chief Complaint: RIGHT SIDED CHF Subjective Subjective: Patient has no complaints. States his SOB is better. Swelling is improved. On baseline O2. Objective Appearance: Positive No Apparent Distress and Alert and Oriented x3 Chest/Lungs: Positive Symmetrical With Equal Breath Sounds; Negative Rales, Rhonci or Wheezes Heart: Positive RRR GI/: Positive Soft, Nontender, Bowel Sounds Normal and No Distention Neurological: Positive Cranial Nerves Intact, Alert, Oriented and Other (+generalized weakness ) Additional Findings: 1+ pitting edema, improved Vital Signs Vital Signs: Vital Signs: Last 24 Hours 02/25/24 10:00 02/25/24 10:32 02/25/24 13:00 Temperature 97.5 F L Temperature Source Temporal Artery Scan Pulse Rate 57 L Respiratory Rate 17 Blood Pressure 142/82 H Blood Pressure Mean 102 Blood Pressure Location Right Arm Blood Pressure Position Sitting O2 Sat by Pulse Oximetry 100 98 Oxygen Delivery Method Nasal Cannula Nasal Cannula Oxygen Flow Rate 3 2 Weight Telemetry Type Telemetry Monitoring Telemetry Heart Rate Telemetry SPO2 EKG TX Interval 0.22 H EKG QRS Interval 0.12 H Telemetry Strip Reading Sinus anamaria with 1st degree AVB 02/25/24 13:44 02/25/24 14:00 02/25/24 18:00 Temperature 97.5 F L 97.2 F L Temperature Source Temporal Artery Scan Temporal Artery Scan Pulse Rate 54 L 52 L Respiratory Rate 18 16 Blood Pressure 134/76 140/81 Blood Pressure Mean 95 100 Blood Pressure Location Right Arm Right Arm Blood Pressure Position Supine Sitting O2 Sat by Pulse Oximetry 99 100 100 Oxygen Delivery Method Nasal Cannula Nasal Cannula Nasal Cannula Oxygen Flow Rate 2 3 3 Weight Telemetry Type Telemetry Monitoring Telemetry Heart Rate Telemetry SPO2 EKG TX Interval EKG QRS Interval Telemetry Strip Reading 02/25/24 19:00 02/25/24 19:49 02/25/24 20:36 Temperature Temperature Source Pulse Rate Respiratory Rate Blood Pressure Blood Pressure Mean Blood Pressure Location Blood Pressure Position O2 Sat by Pulse Oximetry 94 L Oxygen Delivery Method Nasal Cannula Nasal Cannula Oxygen Flow Rate 2 3 Weight Telemetry Type Remote Telemetry Telemetry Monitoring Continues Telemetry Heart Rate 53 L Telemetry SPO2 EKG TX Interval 0.22 H EKG QRS Interval 0.09 Telemetry Strip Reading SB/1st degree avb 02/25/24 21:06 02/26/24 01:00 02/26/24 01:56 Temperature 97.9 F Temperature Source Temporal Artery Scan Pulse Rate 59 L 99 Respiratory Rate 18 Blood Pressure 147/82 H Blood Pressure Mean 103 Blood Pressure Location Right Arm Blood Pressure Position Supine O2 Sat by Pulse Oximetry 98 95 Oxygen Delivery Method Nasal Cannula Nasal Cannula Oxygen Flow Rate 2 2 Weight Telemetry Type Remote Telemetry Telemetry Monitoring Continues Telemetry Heart Rate 50 L Telemetry SPO2 EKG TX Interval 0.20 EKG QRS Interval 0.08 Telemetry Strip Reading SB 02/26/24 05:16 02/26/24 05:17 02/26/24 05:35 Temperature 97.7 F Temperature Source Temporal Artery Scan Pulse Rate 51 L Respiratory Rate 18 Blood Pressure 103/54 L Blood Pressure Mean 70 Blood Pressure Location Right Arm Blood Pressure Position Supine O2 Sat by Pulse Oximetry 99 100 Oxygen Delivery Method Nasal Cannula Nasal Cannula Oxygen Flow Rate 2 3 Weight 170 lb 2 oz Telemetry Type Telemetry Monitoring Telemetry Heart Rate Telemetry SPO2 EKG TX Interval EKG QRS Interval Telemetry Strip Reading 02/26/24 07:00 02/26/24 07:35 Temperature Temperature Source Pulse Rate Respiratory Rate 22 H Blood Pressure Blood Pressure Mean Blood Pressure Location Blood Pressure Position O2 Sat by Pulse Oximetry Oxygen Delivery Method Nasal Cannula Oxygen Flow Rate 3 Weight Telemetry Type Remote Telemetry Telemetry Monitoring Continues Telemetry Heart Rate 54 L Telemetry SPO2 99 EKG TX Interval 0.20 EKG QRS Interval 0.07 Telemetry Strip Reading SB Lab Results Lab Results: Lab Results: Last 24 Hours 02/26/24 05:09 WBC 13.06 H RBC 3.47 L Hgb 9.5 L Hct 31.4 L MCV 90.5 MCH 27.4 MCHC 30.3 L RDW Coeff of Terry 14.9 H Plt Count 386 Immature Gran % (Auto) 0.5 Neut % (Auto) 60.6 Lymph % (Auto) 25.0 [place] % (Auto) 10.6 H Eos % (Auto) 3.1 Baso % (Auto) 0.2 Neut # (Auto) 7.9 H Lymph # (Auto) 3.3 [place] # (Auto) 1.4 Eos # (Auto) 0.4 Baso # (Auto) 0.0 Immature Gran # (Auto) 0.1 Sodium 138.1 Potassium 3.97 Chloride 99.6 Carbon Dioxide 35.1 H Anion Gap 7.37 BUN 21.7 H Creatinine 1.12 H Estimated GFR (MDRD) 63.00 BUN/Creatinine Ratio 19.37 Glucose 101.0 Calcium 9.21 Total Bilirubin 0.44 AST 21.4 ALT 10.2 Alkaline Phosphatase 83.8 Total Protein 6.62 Albumin 3.81 Globulin 2.81 Albumin/Globulin Ratio 1.35 Additional Comments Additional Comments: I have independently reviewed and interpreted the labs/EKGs/imaging ordered during this hospital stay. I have reviewed outside records that are available in our EMR that pertain to medical stay including imaging/notes/labs from previous visits. Active Medications Active Medications: Medications Generic Name Dose Route Start Last Admin Trade Name Freq PRN Reason Stop Dose Admin Acetaminophen 650 mg 02/24/24 21:55 Acetaminophen 325 Mg Tablet PO Q4H PRN Mild Pain Albuterol Sulfate 2.5 mg 02/24/24 21:59 Albuterol Sulfate 0.083% Vial.Neb NEB Q4H PRN shortness of breath Budesonide/Formoterol Fumarate 2 puff 02/25/24 09:00 02/26/24 08:18 Budesonide/Formoterol Fumarate 160/4.5 Mcg Inhaler IH 2 puff BID TIMOTHY Administration Bupropion HCl 300 mg 02/25/24 09:00 02/26/24 08:22 Bupropion Hcl 150 Mg Tab.Er.24h PO 300 mg QAM TIMOTHY Administration Enoxaparin Sodium 40 mg 02/26/24 09:00 02/26/24 08:20 Enoxaparin Sodium 40 Mg/0.4 Ml Syr SUBCUT 40 mg DAILY TIMOTHY Administration Furosemide 20 mg 02/25/24 21:00 02/26/24 08:20 Furosemide Inj 20 Mg/2 Ml Vial IVP 20 mg Q12HR TIMOTHY Administration Gabapentin 200 mg 02/25/24 09:00 02/26/24 08:19 Gabapentin 100 Mg Capsule PO 200 mg BID TIMOTHY Administration Guaifenesin 600 mg 02/25/24 21:00 02/26/24 08:19 Guaifenesin 600 Mg Tablet.Er PO 600 mg Q12HR TIMOTHY Administration Loratadine 10 mg 02/25/24 09:00 02/26/24 08:18 Loratadine 10 Mg Tablet PO 10 mg DAILY TIMOTHY Administration Montelukast Sodium 10 mg 02/24/24 23:00 02/25/24 20:46 Montelukast Sodium 10 Mg Tablet PO 10 mg BEDTIME TIMOTHY Administration Omeprazole 20 mg 02/25/24 07:00 02/26/24 05:38 Omeprazole 20 Mg Capsule.Dr PO 20 mg BIDAC2 TIMOTHY Administration Ondansetron HCl 4 mg 02/24/24 21:55 Ondansetron Hcl/Pf 4 Mg/2 Ml Sdv IVP Q6H PRN Nausea / Vomiting Potassium Chloride 20 meq 02/25/24 09:00 02/26/24 08:19 Potassium Chloride 20 Meq Tab PO 20 meq DAILYWM2 TIMOTHY Administration Pravastatin Sodium 40 mg 02/24/24 23:00 02/25/24 20:46 Pravastatin Sodium 40 Mg Tablet PO 40 mg BEDTIME TIMOTYH Administration Propranolol HCl 20 mg 02/24/24 22:00 02/26/24 08:19 Propranolol Hcl 20 Mg Tablet PO 20 mg BID TIMOTHY Administration Sodium Chloride 1 syr 02/25/24 21:00 02/26/24 05:38 0.9% Sodium Chloride 10 Ml Disp.Syrin IVF 1 syr Q8H TIMOTHY Administration Sodium Chloride 1 syr 02/26/24 09:01 02/26/24 08:22 0.9% Sodium Chloride 10 Ml Disp.Syrin IVF 1 syr PRN PRN Administration Maintain IV Patency Spironolactone 25 mg 02/25/24 09:00 02/26/24 08:19 Spironolactone 25 Mg Tablet PO 25 mg DAILY TIMOTHY Administration Tamsulosin HCl 0.4 mg 02/24/24 22:00 02/25/24 20:46 Tamsulosin Hcl 0.4 Mg Cap.Er.24h PO 0.4 mg BEDTIME TIMOTHY Administration Tiotropium [place] 1 cap 02/25/24 09:00 02/26/24 08:18 Tiotropium [place] 18 Mcg Cap.W.Dev IH 1 cap DAILY TIMOTHY Administration Plan Plan: 1. Acute HFpEF exacerbation - Last echo in 08/10 had normal EF. Cont lasix q12hrs, I&O, daily weights, cardiac diet, spironolactone, fluid restrict, replace K+ as needed. 2. COPD - Doesn't appear to be acutely exacerbated, cont home regimen. Sees pulm outpatient. 3. Hypertension - Cont home meds 4. Hyperlipidemia - Cont home meds 5. BPH - Cont home meds 6. Anxiety/depression - Cont home meds 7. Chronic leukocytosis - pt saw Jasmin Robbins NP heme/onc at [facility] 08/10 and she initiated work up. DVT Prophylaxis: Lovenox Dispo: likely dc tomorrow Review Statement Review Statement: I have personally discussed and reviewed the patient's visit/currently labs/imaging/decision making with Dr. Aguila, my supervising attending. Greater that 50 minutes spent with patient, 50% of the time spent with this patient was devoted to counseling and coordination of care.
[2024-02-26] MEDS: BENADRYL PO STA (10:05)
[2024-02-27 05:25] LABS: BASOPHILS % (AUTO) 0.3 % (0.0-3.0); EOSINOPHILS # (AUTO) 0.5 K/ul (0.0-0.7); EOSINOPHILS % (AUTO) 3.5 % (0.0-7.0); HEMATOCRIT 30.5 % (42.0-52.0); HEMOGLOBIN 9.1 g/dl (14.0-18.0); IMMATURE GRANULOCYTE # (AUTO) 0.1 (0.0-1.0); IMMATURE GRANULOCYTE % (AUTO) 0.3 % (0.0-5.0); LYMPHOCYTES # (AUTO) 3.2 K/uL (0.60-3.4); LYMPHOCYTES % (AUTO) 22.5 (10.0-50.0); MEAN CORPUSCULAR HGB CONC 29.8 (31.8-35.4); MEAN CORPUSCULAR VOLUME 90.5 fl (80.0-94.0); MONOCYTES # (AUTO) 1.5 K/uL (0.4-2.0); MONOCYTES % (AUTO) 10.3 (0-10); NEUTROPHILS % (AUTO) 63.1 % (42.2-75.2); PLATELET COUNT 380 10^3/uL (140-440); RDW COEFFICIENT OF VARIATION 14.8 % (11.6-14.8); RED BLOOD COUNT 3.37 10^6/ul (4.70-6.10); WHITE BLOOD COUNT 14.32 K/ul (4.2-10.2)
[2024-02-27 05:36] LABS: ALANINE AMINOTRANSFERASE 10.9 U/L (0-50); ALBUMIN 3.76 g/dL (3.5-5.0); ALKALINE PHOSPHATASE 80.9 U/L (56-119); ASPARTATE AMINO TRANSFERASE 23.5 U/L (17-59); BILIRUBIN,TOTAL 0.29 mg/dL (0.2-1.3); BLOOD UREA NITROGEN 22.9 mg/dL (9-20); CALCIUM 9.46 mg/dL (8.4-10.2); CARBON DIOXIDE 36.8 mmol/L (22-30.0); CHLORIDE 100.5 mmol/L (98-107); CREATININE 1.13 mg/dL (0.60-1.10); GLUCOSE 106.9 mg/dL (74-106); POTASSIUM 4.17 mmol/L (3.5-5.1); SODIUM 138.8 mmol/L (134.5-145); TOTAL PROTEIN 6.52 g/dL (6.3-8.2)
--- NOTE | 2024-02-27 09:36 | DCSUM ---
Admission Date Admission Date: 02/24/24 Discharge Date Discharge Date: 02/27/24 Admission Diagnosis Admission Diagnosis: 1. Acute HFpEF exacerbation Discharge Diagnosis Discharge Diagnosis: 1. Acute HFpEF exacerbation - resolved 2. COPD 3. Hypertension 4. Hyperlipidemia 5. BPH 6. Anxiety/depression 7. Chronic leukocytosis Hospital Provider Hospital Provider: BERNABE ENCARNACION PA-C, [facility] Primary Care Physician Primary Care Physician: LV ROSALES MD Summary of History and Physical Summary of History and Physical: Patient is a 78 year old male with pmhx of HFpEF, COPD with chronic respiratory failure at 3L, depression, AAA, hyperlipidemia, hypertension, who presents to ER with worsening edema and sob over the last several days. Patient normally takes lasix and spironolactone. He has limited ambulation ability but has been more SOB with exertion lately as well. He is on his baseline 3L. In ER CTA negative for acute findings but noted to have pitting edema to abdomen. Pt was given lasix. Admitted to med surg. Pt lives at home with granddaughter, who is a DIRECTOR OF SOCIAL WORK. Upon my evaluation today, he is feeling some better and thinks his swelling has improved. Family feels patient needs some additional rehab. Hospital Course Subjective: Patient was treated with IV lasix. He has been stable on lasix 40 daily and spironolactone. Will continue with lasix 20 mg in addition to the 40 mg prn for weight gain, swelling, sob. Pt has been on his baseline O2. Family and patient feel he needs more rehab and would like to go back to [facility]. Pt will be discharged today in stable condition. His weight is 172 which is baseline for him. Appearance: Pleasant, No Apparent Distress and Alert HEENT: MMM and Supple CVS: Other (rrr) Abdomen: Soft, Non-Tender and No Distention Respiratory: No Accessory Muscle Use Extremities: Other (1+ pitting edema jesu lower ext, improved ) Vital Signs: Most Recent Vital Signs Temperature 97.7 F 02/27/24 05:18 Temperature Source Temporal Artery Scan 02/27/24 05:18 Temperature Source Tympanic 02/24/24 15:49 Pulse Rate 54 L 02/27/24 05:18 Respiratory Rate 18 02/27/24 05:18 Blood Pressure 113/74 02/27/24 05:18 Blood Pressure Mean 87 02/27/24 05:18 Blood Pressure Right Arm 151/86 02/24/24 21:02 Blood Pressure Location Right Arm 02/27/24 05:18 Blood Pressure Position Supine 02/26/24 20:47 O2 Sat by Pulse Oximetry 95 02/27/24 05:41 Oxygen Delivery Method Nasal Cannula 02/27/24 08:00 Oxygen Flow Rate 3 02/27/24 08:00 Height 5 ft 10 in 02/24/24 21:02 Weight 172 lb 9 oz 02/27/24 05:17 Telemetry Type Remote Telemetry 02/27/24 07:00 Telemetry Monitoring Continues 02/27/24 07:00 Telemetry Heart Rate 58 L 02/27/24 07:00 Telemetry SPO2 98 02/27/24 01:00 EKG DE Interval 0.16 02/27/24 07:00 EKG QRS Interval 0.07 02/27/24 07:00 Telemetry Strip Reading SB 02/27/24 07:00 Imaging: EXAM: CHEST CTA WITH CONTRAST (PULMONARY ARTERY) HISTORY: Dyspnea. Elevated D-dimer. TECHNIQUE: CTA acquisition of the chest from the thoracic inlet to the upper abdomen following IV contrast administration timed to filling of the pulmonary artery. IV Contrast: 100 mL of Visipaque 320 administered. 3D/MIP/VR images were utilized. CT Dose Reduction Techniques Employed: Yes. COMPARISON: CT chest 09/18/2023 FINDINGS: Pulmonary Embolism: - Diagnostic quality: Adequate. - Central (Main/Lobar/Interlobar): No embolus. - Peripheral (Segmental/Subsegmental): No embolus. - Right ventricle/Left ventricle ratio: Normal. Lines, Tubes, Devices: None. Lung Parenchyma and Airways: Central airways are patent without endobronchial lesion. The emphysematous changes are again present. The lungs show scattered fibrocalcific changes and scarring which are unchanged. No focal consolidation or interstitial disease. No suspicious pulmonary nodule. Pleural Space: No pleural effusion or thickening. No pneumothorax. Thoracic Inlet, Mediastinum, and Eliana: Thyroid gland is normal. No enlarged lymph node or abnormal density. Heart, Vessels, and Pericardium: The heart is upper limits normal for size. No pericardial effusion. Coronary artery calcifications. Aorta shows atherosclerotic calcific changes without aneurysm or dissection. The Bones and Soft Tissues: There is no fracture or lytic lesion. Stable compression of the T11 and T12 vertebral body without retropulsion. Stable compression of the superior plate of L1 vertebral body. Stable mild compression of the superior plate of the T1 and the T3 vertebral bodies. No new compressions. Continued mild prominence of the retroareolar soft tissues may be secondary to gynecomastia. Chest wall shows no enlarged axillary lymph node or mass. Upper Abdomen: Stable small hiatal hernia. A couple stable hepatic cysts. The upper abdomen visualized is otherwise unremarkable. IMPRESSION: 1. No evidence of pulmonary artery embolism. 2. No acute abnormality of the chest. 3. Other chronic and non emergent findings as above. Lab Results Last 24 Hours: 02/27/24 05:03 WBC 14.32 H RBC 3.37 L Hgb 9.1 L Hct 30.5 L MCV 90.5 MCH 27.0 MCHC 29.8 L RDW Coeff of Terry 14.8 Plt Count 380 Immature Gran % (Auto) 0.3 Neut % (Auto) 63.1 Lymph % (Auto) 22.5 Hart % (Auto) 10.3 H Eos % (Auto) 3.5 Baso % (Auto) 0.3 Neut # (Auto) 9.0 H Lymph # (Auto) 3.2 Hart # (Auto) 1.5 Eos # (Auto) 0.5 Baso # (Auto) 0.0 Immature Gran # (Auto) 0.1 Sodium 138.8 Potassium 4.17 Chloride 100.5 Carbon Dioxide 36.8 H Anion Gap 5.67 BUN 22.9 H Creatinine 1.13 H Estimated GFR (MDRD) 62.00 BUN/Creatinine Ratio 20.26 Glucose 106.9 H Calcium 9.46 Total Bilirubin 0.29 AST 23.5 ALT 10.9 Alkaline Phosphatase 80.9 Total Protein 6.52 Albumin 3.76 Globulin 2.76 Albumin/Globulin Ratio 1.36 Discharge Instructions Discharge Planning: Discharge Planning > [address] Toni Rosales. Discharge Medications: Medications at Discharge (Home Meds & RX) Discharge Plan Discharge Discharge Orders: Discharge Patient (ONCE); Ordered 02/27/24 Ordered By: BERNABE ENCARNACION Activity Restrictions/Additional Instructions: DISCHARGE TO SNF DX: ACUTE HF EXACERBATION O2 AT 3L DIET: LOW SODIUM KELLEY HOSE RECOMMENDED ACTIVITY: TOLERATED, FALL PRECAUTIONS Patient Disposition: TRANSFER SNF Prescriptions: New furosemide [Lasix] 20 mg tablet 20 mg PO DAILY PRN (Reason: weight gain) Qty: 30 0RF Rx Instructions: Give in addition to 40 mg lasix if sob or >3 lb weight gain Continued furosemide 40 mg tablet See Rx Instructions .ROUTE .COMPLEX Qty: 90 1RF Dose Instruction: TAKE 1 TABLET DAILY Rx Instructions: TAKE 1 TABLET DAILY propranolol 20 mg tablet See Rx Instructions .ROUTE .COMPLEX Qty: 180 1RF Dose Instruction: TAKE 1 TABLET TWICE A DAY Rx Instructions: TAKE 1 TABLET TWICE A DAY spironolactone 25 mg tablet See Rx Instructions .ROUTE .COMPLEX Qty: 90 1RF Dose Instruction: TAKE 1 TABLET DAILY Rx Instructions: TAKE 1 TABLET DAILY omeprazole 20 mg capsule,delayed release(DR/EC) See Rx Instructions .ROUTE .COMPLEX Qty: 180 1RF Dose Instruction: TAKE 1 CAPSULE TWICE A DAY Rx Instructions: TAKE 1 CAPSULE TWICE A DAY potassium chloride 10 mEq tablet,ER particles/crystals 20 meq PO DAILY Qty: 90 1RF albuterol sulfate [ProAir HFA] 90 mcg/actuation HFA aerosol inhaler 2 puff inhalation Q4H PRN (Reason: Shortness of air) Qty: 8.5 1RF montelukast 10 mg tablet 10 mg PO BEDTIME acetaminophen 325 mg tablet 650 mg PO Q4-6H PRN (Reason: Elevated temp or mild pain) albuterol sulfate 2.5 mg /3 mL (0.083 %) solution for nebulization 2.5 mg inhalation Q4H PRN (Reason: shortness of breath or wheezing) cholecalciferol (vitamin D3) 25 mcg (1,000 unit) capsule 25 mcg PO DAILY Patient Comments: Take 5 tablets by mouth daily. guaifenesin 600 mg tablet extended release 12hr 1,200 mg PO Q12H PRN (Reason: congestion) Multiple Vitamin-Minerals Tablet 1 tab PO DAILY ascorbic acid (vitamin C) 1,000 mg tablet 500 mg PO DAILY cetirizine [24Hour Allergy] 10 mg tablet 10 mg PO DAILY docusate sodium [Colace] 100 mg capsule 200 mg PO BID PRN (Reason: constipation) vitamin B complex [B Complex-Vitamin B12] Tablet 2 tab PO DAILY Trelegy Ellipta 200-62.5-25 mcg blister with device 1 inh inhalation DAILY magnesium 200 mg tablet 30 mg PO DAILY budesonide [Pulmicort] 1 mg/2 mL suspension for nebulization 1 mg inhalation BEDTIME PRN (Reason: shortness of air) pravastatin 40 mg tablet 40 mg PO BEDTIME gabapentin 100 mg capsule 200 mg PO BID tamsulosin 0.4 mg capsule See Rx Instructions .ROUTE .COMPLEX Rx Instructions: TAKE 1 CAPSULE bedtime fexofenadine 180 mg tablet 180 mg PO DAILY triamcinolone acetonide 0.1 % cream 1 applic topical BID PRN (Reason: arms ) bupropion HCl [Wellbutrin XL] 300 mg tablet extended release 24 hr 300 mg PO QAM Discontinued furosemide [Lasix] 20 mg tablet 40 mg PO DAILY PRN (Reason: SWELLING) Rx Instructions: FOR WORSENING SWELLING OR WEIGHT GAIN Did you review [place] [employer] for ALL controlled substances?: Not Applicable Discussed opioids are addictive and Narcan is available by prescription or from pharmacy.: No Condition: Stable
[2024-02-27 10:32] VITALS: RESP 20
[2024-02-27 14:14] VITALS: BP 125/72; PULSE 53; TEMP 97.8
--- NOTE | 2024-03-02 11:40 | OTDC ---
Date of Evaluation:02/24/24 Diagnosis:[R sided CHF, Edema of legs, feet, and abdomen] Number of visits:[] Last Date of Service:[02/28/24] Reason For Discharge:[Discharged to [facility]] Discharge Summary:[Pt discharged to [facility] for rehab.] JOSE JUAN
--- NOTE | 2024-03-02 11:43 | OTDC ---
Date of Evaluation:02/24/24 Diagnosis:[CHF, Edema of legs] Number of visits:[] Last Date of Service:[02/28/24] Reason For Discharge:[Rehab at [facility]] Discharge Summary:[Pt discharged to a SNF for further therapy.] TIFFANYD
== END 2024-02-27 17:49 | DRG 293 ==
LOC: ED 15:22 → MEDSURG B 20:30
PROVIDERS: ADMIT Hospitalist; ATTEND Physician Assistant